=== PATIENT | female | born 1950 | race African-American/Black ===

== ENCOUNTER → 2017-02-08 | Outpatient (CLI) | payer MEDICARE ==
[2014-09-10 17:00] VITALS: BP 131/58
--- NOTE | 2017-02-08 15:00 | CARD ---
APPROVED REPORT EXAM: Two-dimensional and M-mode echocardiogram with Doppler and color Doppler. Other Information Quality : GoodHR: 76bpm Rhythm : NSR INDICATION Dyspnea RISK FACTORS Obesity 2D DIMENSIONS RVDd3.5 (2.9-3.5cm)Left Atrium(2D)4.2 (1.6-4.0cm) IVSd1.1 (0.7-1.1cm)Aortic Root(2D)3.2 (2.0-3.7cm) LVDd5.1 (3.9-5.9cm)LVOT Diameter2.5 (1.8-2.4cm) PWd1.1 (0.7-1.1cm)LVDs3.1 (2.5-4.0cm) FS (%) 40.2 %SV88.6 ml Aortic Valve AoV Peak Balta.200.0cm/sAoV VTI36.6cm AO Peak GR.16.0mmHgLVOT Peak Balta.150.5cm/s AO Mean GR.9mmHgAVA (VMAX)3.57cm2 Mitral Valve MV E Qlgzvawz19.9cm/sMV E Peak Gr.4mmHg MV DECEL [id number] A Vvycybft458.6cm/s MV E Mean Gr.1mmHgE/A Ratio0.7 MV A Emnfuftq05sv Pulmonary Valve PV Peak Pgitswzp157.0cm/s Tricuspid Valve TR P. Frpgwzru421vd/sTR Peak Gr.41mmHg Pulmonary Vein S1 Knpnvzpm57.4cm/sD2 Ehxentvh47.5cm/s PVa qxcqfzii50qzlv LEFT VENTRICLE The left ventricle is normal size. There is mild concentric left ventricular hypertrophy. The left ve ntricular systolic function is normal and the ejection fraction is within normal range. The Ejection Fraction is 65-70%. There is normal LV segmental wall motion. Transmitral Doppler flow pattern is Gra de I-abnormal relaxation pattern. RIGHT VENTRICLE The right ventricle is normal size. There is normal right ventricular wall thickness. The right ventr icular systolic function is normal. ATRIA The left atrium is mildly dilated. The right atrium size is normal. The interatrial septum is intact with no evidence for an atrial septal defect or patent foramen ovale as noted on 2-D or Doppler imagi ng. AORTIC VALVE The aortic valve is mildly sclerotic. The aortic valve is trileaflet. Doppler and Color Flow revealed no significant aortic regurgitation. There is no significant aortic valvular stenosis. MITRAL VALVE The mitral valve leaflets are thickened. There is no evidence of mitral valve prolapse. There is no m itral valve stenosis. Doppler and Color Flow revealed trace mitral regurgitation. TRICUSPID VALVE Doppler and Color Flow revealed trace to mild tricuspid regurgitation. The pulmonary artery systolic pressure is estimated at 44 mmHg. There is mild pulmonary hypertension. PULMONIC VALVE The pulmonary valve is not well visualized but appears to open adequately. Doppler and Color Flow rev ealed mild pulmonic valvular regurgitation. There is no pulmonic valvular stenosis by spectral Dopple r. GREAT VESSELS The aortic root is normal in size. The ascending aorta is normal in size. The pulmonary artery is nor mal. The IVC is normal in size and collapses >50% with inspiration. PERICARDIAL EFFUSION There is no evidence of significant pericardial effusion. Critical Notification Critical Value: No <Conclusion> The left ventricle is normal size. The left ventricular systolic function is normal and the ejection fraction is within normal range. The Ejection Fraction is 65-70%. There is mild concentric left ventricular hypertrophy. There is no significant aortic valvular stenosis. Doppler and Color Flow revealed no significant aortic regurgitation. Doppler and Color Flow revealed trace mitral regurgitation. Doppler and Color Flow revealed trace to mild tricuspid regurgitation. The pulmonary artery systolic pressure is estimated at 44 mmHg. There is mild pulmonary hypertension.
--- NOTE | 2017-02-09 18:19 | RAD ---
APPROVED REPORT Patient Location : OUT-PATIENT Indications VENOUS INSUFFICIENCY Findings Walker scale images of the bilateral saphenofemoral junctions and limited images of the great saphenous vein does not reveal any evidence of thrombus. The right great saphenous vein measures approximate 6 mm and the left great saphenous vein measures a pproximately 7 mm. Both these veins do not show any evidence of reflux. The bilateral lesser saphenou s veins measure approximately 4 mm and does not show any evidence of reflux. Critical Notification Critical Value: No <Conclusion> Negative for reflux in the bilateral greater and lesser saphenous veins.
== END | disposition home or self-care (01) ==
LOC: ECHO 10:20
PROVIDERS: ATTEND Internal Medicine Cardiovascular Disease
DX: I87.2 Venous insufficiency (chronic) (peripheral) (principal); I51.7 Cardiomegaly; I27.2 Other secondary pulmonary hypertension; R06.00 Dyspnea, unspecified
CPT/HCPCS: 93306; 93970

== ENCOUNTER → 2017-04-11 | Outpatient (CLI) | payer MEDICARE ==
[2014-09-10 17:00] VITALS: BP 131/58
[~2017-04-11] MED LIST: ZOLPIDEM 5 MG TABLET. PO ONE
--- NOTE | 2017-04-12 15:40 | SLEEP ---
DATE OF STUDY: 04/11/2017 ATTENDING PHYSICIAN: Dr. Manuel Florian. REFERRING PHYSICIAN: Dr. Angeles. The patient is a 66-year-old who weighs 284 pounds with a BMI of 47. The patient's [place] score was 6. The patient underwent sleep study at [facility]. This was a diagnostic study. The patient normally wears 3 liters of oxygen continuously and this study was performed on room air. During the night study, the patient spent 431 minutes in bed and slept for 215 minutes with a low sleep efficiency of 50%. Sleep latency was prolonged was prolonged at 214 minutes. REM latency was 121 minutes. Overall, sleep architecture showed normal stage I sleep, reduced stage II sleep, increased slow wave and reduced REM sleep. During the night study, the patient had 9 obstructive apneas, no mixed or central apneas and 10 hypopneas. The patient's apnea-hypopnea index was 5 per hour, supine index 5 per hour with a REM index of 55 per hour. Nocturnal oximetry study revealed a mean oxygen saturation of 86%, the lowest of 61%. 21% of time oxygen saturation remained between 80% and 89% and 76% of time between 70 and 79%, and 2.8% of the time between 60 and 69%. There was a sustained pattern of nocturnal hypoxia, which is typical of obesity hypoventilation. PLMS were not seen. The EKG monitoring revealed normal sinus rhythm, average heart rate was 74 beats per minute, no sustained arrhythmias were observed. Due to low AHI, the patient did not meet the split night criteria for CPAP initiation. IMPRESSION: 1. Mild sleep apnea-hypopnea syndrome at an AHI of 5 per hour with worsening AHI of 55 per hour during REM sleep. 2. Sustained nocturnal hypoxia, which is typically seen in patients with obesity hypoventilation syndrome. The patient uses oxygen 3 liters on a continuous basis and it should be used as prescribed. The study was done on room air. 3. No clinically significant PLMS. 4. Reduced sleep efficiency of 50%, resulting from sleep onset and sleep maintenance insomnia. RECOMMENDATIONS: 1. The patient did not meet the split night criteria for CPAP initiation. 2. The patient has mild sleep apnea and I would recommend weight loss as the initial form of treatment. 3. If the weight loss does not improve patient's symptoms, then other treatment options would include oral appliance worsens trial of CPAP titration. 4. Continue with home oxygen, 3 liters continuously at nighttime. 5. The patient would need further evaluation of insomnia and treatment according to etiology. ALO WALLACE MD DR: ASHLEY/stalin JOB#: [id number] / [id number] MANUEL Art MD, SABATO MD
== END | disposition home or self-care (01) ==
LOC: SLPLAB 18:05
PROVIDERS: ATTEND Internal Medicine Pulmonary Disease
DX: G47.33 Obstructive sleep apnea (adult) (pediatric) (principal); R06.83 Snoring
CPT/HCPCS: 95810

== ENCOUNTER → 2017-07-16 | Outpatient (CLI) | payer MEDICARE | END | disposition home or self-care (01) | LOC: MAMMO 12:30 | DX: Z12.31 Encounter for screening mammogram for malignant neoplasm of breast (principal) | CPT/HCPCS: 77067 ==

== ENCOUNTER → 2019-11-21 | Outpatient (CLI) | payer MEDICARE ==
[2014-09-10 17:00] VITALS: BP 131/58
[~2019-11-21] MED LIST changes: +BUPIVACAINE MPF 0.5% 10 ML VIAL. IJ ONE; +IOHEXOL 300 MG/ML 50 ML VIAL. IJ ONE; -ZOLPIDEM 5 MG TABLET. PO ONE; +methylPREDNISolone ACETATE 80 MG/ML VIAL. INT ART ONE
--- NOTE | 2019-11-21 10:22 | RAD ---
EXAM: FLUOROSCOPICALLY GUIDED LEFT HIP INJECTION. HISTORY: Left hip pain. Fluoroscopically guided injection is requested. FINDINGS: The procedure along with its risks and benefits were explained to the patient. She agreed to proceed. A timeout procedure was performed. The left hip joint was visualized fluoroscopically. The overlying skin was sterilely prepped and infiltrated with 1% lidocaine for local anesthesia. Under fluoroscopic guidance, 22-gauge spinal needle was advanced into the left hip joint. Intra-articular positioning was confirmed with a small injection of iodinated contrast. 80 mg Depo-Medrol mixed with 4 mL 1% lidocaine were instilled under fluoroscopic control. Instrumentation was withdrawn and a sterile dressing placed. There were no immediate complications. 2 fluoroscopic images were obtained. Fluoroscopy time 0.4 minutes. The patient reported her pain was significantly improved after the injection. IMPRESSION: 1. Successful fluoroscopically guided left hip injection. Electronically signed by: Corrina Wadsworth MD (11/21/2019 10:19 AM) [id number]
== END | disposition home or self-care (01) ==
LOC: RAD 09:04
PROVIDERS: ATTEND Orthopaedic Surgery Sports Medicine
DX: M25.552 Pain in left hip (principal)
CPT/HCPCS: 20610; 77002; J1040; Q9967

== ENCOUNTER 2021-05-19 10:55 | Inpatient (IN) | payer MEDICARE ==
[~2021-05-19] VITALS: Ht 165.1 cm; Wt 125.2 kg
--- NOTE | 2021-05-19 11:34 | PHYS DOC ---
Past Medical History Past Medical History: COPD, Hypertension, Other Additional Past Medical Histor: emphysema, Past Surgical History: No Surgical History Smoking Status: Former Smoker Alcohol Use: None Drug Use: None General Adult EDM: Chief Complaint: MECHANICAL FALL HPI: HPI: Patient is a 71 year old female who presents after a fall this morning. Patient states she stood up to go to the bathroom when her leg went out from under her. Patient is reporting bilateral knee pain, left hip pain and left upper leg pain. Fall was witnessed. She denies dizziness at the time of fall. Patient denies hitting her head or loss of consciousness. Denies blood thinners. Denies all other injuries or complaints. Patient did not take any medication prior to arrival for discomfort. Review of Systems: Review of Systems: Constitutional: Denies fever or chills. [] Eyes: Denies change in visual acuity. [] HENT: Denies nasal congestion or sore throat. [] Respiratory: Denies cough or shortness of breath. [] Cardiovascular: Denies chest pain or edema. [] GI: Denies abdominal pain, nausea, vomiting, bloody stools or diarrhea. [] : Denies dysuria. [] Musculoskeletal: Denies back pain or joint pain. Left upper leg and hip pain Integument: Abrasion to bilateral knees Neurologic: Denies headache, focal weakness or sensory changes. [] Endocrine: Denies polyuria or polydipsia. [] Lymphatic: Denies swollen glands. [] Psychiatric: Denies depression or anxiety. [] Heart Score: C/O Chest Pain: No Risk Factors: Risk Factors: DM, Current or recent (<one month) smoker, HTN, HLP, family history of CAD, obesity. Risk Scores: Score 0 - 3: 2.5% MACE over next 6 weeks - Discharge Home Score 4 - 6: 20.3% MACE over next 6 weeks - Admit for Clinical Observation Score 7 - 10: 72.7% MACE over next 6 weeks - Early Invasive Strategies Allergies: Allergies: Allergies Coded Allergies Type Severity Reaction Last Updated Verified No Known Drug Allergies 05/19/21 No Physical Exam: PE: Constitutional: Well developed, well nourished, no acute distress, non-toxic appearance. [] HENT: Normocephalic, atraumatic, bilateral external ears normal, oropharynx moist, no oral exudates, nose normal. [] Eyes: PERRLA, EOMI, conjunctiva normal, no discharge. [] Neck: Normal range of motion, no tenderness, supple, no stridor. [] Cardiovascular:Heart rate regular rhythm, no murmur [] Lungs & Thorax: Bilateral breath sounds clear to auscultation [] Abdomen: Bowel sounds normal, soft, no tenderness, no masses, no pulsatile masses. [] Skin: Warm, dry, no erythema, no rash. [] Back: No tenderness, no CVA tenderness. [] Extremities: No tenderness, no cyanosis, no clubbing, ROM intact, no edema. [] Neurologic: Alert and oriented X 3, normal motor function, normal sensory function, no focal deficits noted. [] Psychologic: Affect normal, judgement normal, mood normal. [] Current Patient Data: Vital Signs: Vital Signs Date Time Temp Pulse Resp B/P (MAP) Pulse Ox O2 Delivery O2 Flow Rate FiO2 05/19/21 10:55 98.3 81 20 121/59 (79) 93 Nasal Cannula 4.0 98.3 EKG: EKG: [] Radiology/Procedures: Radiology/Procedures: []EXAMINATION: Pelvis, left hip, bilateral knees, and left tibia fibula radiograph. VIEWS: 2 images single AP view of the pelvis, 2 views of the left hip, 2 views of bilateral knees, and 2 views of the left tibia fibula COMPARISON: Pelvic radiograph from 2019 INDICATION:71 years, Female, . FINDINGS: Pelvis/left hip: Demonstrate severe joint space narrowing of the left hip with subchondral sclerosis and cyst formation with small to mild osteophytes. Mild degenerative osteoarthritis of the right hip. There is no acute fracture or dislocation or diastases Right knee: No acute fracture or malalignment. Marginal osteophytes in the medial and patellofemoral compartments. No sizable joint effusion. Left knee: No acute fracture or malalignment. Marginal osteophytes in the medial and patellofemoral compartments. No sizable joint effusion. Left tibia-fibula: No acute fracture or malalignment. Bone mineralization is normal. There appears to be mild joint space narrowing at the anterior portion of the tibial talar joint with subchondral sclerosis and marginal osteophytes. Os trigonum is present. Soft tissues are grossly unremarkable. IMPRESSION: 1. No acute fracture or dislocation of the pelvis and left hip. Severe degenerative osteoarthritis of the left hip is redemonstrated. 2. No acute fracture or dislocation of bilateral knees. 3. No acute fracture or dislocation of the left tibia-fibula. Electronically signed by: Johnson Ramsey DO (05/19/2021 12:43 PM) [id number] Course & Med Decision Making: Course & Med Decision Making Pertinent Labs and Imaging studies reviewed. (See chart for details) [] 71-year-old female presents after a fall at home. Work-up in ER consisted of left hip and pelvis, bilateral knee, left tib-fib x-ray to rule out fracture. Pain treated in the emergency room. Hip and pelvis, tib-fib, bilateral knee x-rays all unremarkable. Upon reassessment, patient states that she is still in pain and just feels like she is too weak to go home. Patient currently lives alone at home. Discussed patient case with Dr. hSaver who agreed to keep patient. Patient will be admitted for weakness, falls. Troponin, 676 BNP 428. Alessandra Disclaimer: Alessandra Disclaimer: This electronic medical record was generated, in whole or in part, using a voice recognition dictation system. Departure Departure Referrals: PETER VIDES MD (PCP) MARS PETERSEN APRN May 19, 2021 11:34
--- NOTE | 2021-05-19 12:46 | RAD ---
EXAMINATION: Pelvis, left hip, bilateral knees, and left tibia fibula radiograph. VIEWS: 2 images single AP view of the pelvis, 2 views of the left hip, 2 views of bilateral knees, an d 2 views of the left tibia fibula COMPARISON: Pelvic radiograph from 2019 INDICATION:71 years, Female, . FINDINGS: Pelvis/left hip: Demonstrate severe joint space narrowing of the left hip with subchondral sclerosis and cyst formation with small to mild osteophytes. Mild degenerative osteoarthritis of the right hip. There is no acute fracture or dislocation or diastases Right knee: No acute fracture or malalignment. Marginal osteophytes in the medial and patellofemoral compartments. No sizable joint effusion. Left knee: No acute fracture or malalignment. Marginal osteophytes in the medial and patellofemoral c ompartments. No sizable joint effusion. Left tibia-fibula: No acute fracture or malalignment. Bone mineralization is normal. There appears to be mild joint space narrowing at the anterior portion of the tibial talar joint with subchondral scl erosis and marginal osteophytes. Os trigonum is present. Soft tissues are grossly unremarkable. IMPRESSION: 1. No acute fracture or dislocation of the pelvis and left hip. Severe degenerative osteoarthritis of the left hip is redemonstrated. 2. No acute fracture or dislocation of bilateral knees. 3. No acute fracture or dislocation of the left tibia-fibula. Electronically signed by: Johnson Ramsey DO (05/19/2021 12:43 PM) [id number]
[2021-05-19] MEDS ORDERED: HYDROcodone/APAP 5/325MG 1 TAB TABLET PO ONE (13:00)
[2021-05-19] MEDS ORDERED: NAPROXEN 500 MG TABLET PO ONE (13:30)
[2021-05-19 15:06] LABS: BILIRUBIN,URINE SMALL (NEG); CLARITY,URINE CLOUDY; COLOR,URINE AMBER; NITRITE,URINE NEGATIVE (NEG); PROTEIN,URINE 100 mg/dL (NEG-TRACE)
[2021-05-19 15:18] LABS: AMORPHOUS SEDIMENT,UR PRESENT /HPF; GRANULAR CASTS,URINE FEW /HPF; HYALINE CASTS, URINE FEW /HPF
[2021-05-19 15:19] LABS: BACTERIA,URINE FEW /HPF (0-FEW); RBC,URINE 0 /HPF (0-2)
--- NOTE | 2021-05-19 15:30 | RAD ---
XR CHEST 1V History: Reason: weakness / Spl. Instructions: / History: Comparison: September 10, 2014 Findings: Interstitial thickening with ill-defined opacities most prominent within the lung bases. No pleural e ffusion. No pneumothorax. Normal heart size. Impression: 1. Mild interstitial thickening with ill-defined opacities, may represent pulmonary edema or infecti on. Electronically signed by: Norberto Casas DO (05/19/2021 3:28 PM) [facility]
[2021-05-19 15:47] LABS: BASO # 0.1 x10^3/uL (0.0-0.2); BASO % 1 % (0-3); EOS % 0 % (0-3); HEMATOCRIT 35.3 % (36.0-47.0); HEMOGLOBIN 11.3 g/dL (12.0-15.5); LYMPH # 0.9 x10^3/uL (1.0-4.8); LYMPH % 10 % (24-48); MEAN CORPUSCULAR HEMOGLOBIN 30 pg (25-35); MEAN CORPUSCULAR HGB CONC 32 g/dL (31-37); MEAN CORPUSCULAR VOLUME 92 fL (79-100); MONO # 0.7 x10^3/uL (0.0-1.1); MONO % 7 % (0-9); NEUT # 7.7 x10^3/uL (1.8-7.7); NEUT % 82 % (31-73); PLATELET COUNT 181 x10^3/uL (140-400); RED BLOOD COUNT 3.83 x10^6/uL (3.50-5.40); RED CELL DISTRIBUTION WIDTH 14.7 % (11.5-14.5); WHITE BLOOD COUNT 9.5 x10^3/uL (4.0-11.0)
[2021-05-19 16:09] LABS: BLOOD UREA NITROGEN 31 mg/dL (7-20); BUN/CREATININE RATIO 21 (6-20); CALCIUM 8.8 mg/dL (8.5-10.1); CARBON DIOXIDE 39 mmol/L (21-32); CHLORIDE 105 mmol/L (98-107); CREATININE 1.5 mg/dL (0.6-1.0); GFR 41.2; GLUCOSE 96 mg/dL (70-99); SODIUM 143 mmol/L (136-145)
[2021-05-19 16:15] LABS: ALBUMIN/GLOBULIN RATIO 0.7 (1.0-1.7); ALK PHOS 47 U/L (46-116); ALT (SGPT) 33 U/L (14-59); AST (SGOT) 68 U/L (15-37); TOTAL BILIRUBIN 0.4 mg/dL (0.2-1.0); TOTAL PROTEIN 7.3 g/dL (6.4-8.2)
--- NOTE | 2021-05-19 16:18 | EKG ---
[facility] [address] [place] [address] Test Date: 2021-05-19 Test Time: 15:44:33 Pat Name: LIBZETH MACDONALD Department: Room: [facility] Gender: F Head Of Data: : 1950 Requested By: MARS PETERSEN Order Number: [id number] Reading MD: Ariel Padilla Measurements Intervals [place] Rate: 83 P: [place]: QRS: 4 QRSD: 84 T: 32 QT: 448 QTc: 527 Interpretive Statements SINUS RHYTHM PROLONGED QT Electronically Signed On 05-20-2021 14:31:54 [employer] INTERN by Ariel Padilla
[2021-05-19] MEDS ORDERED: ONDANSETRON PF 4 MG/2 ML VIAL. IVP PRN (16:30)
--- NOTE | 2021-05-19 16:31 | PDOC1 ---
History and Physical Date of Admission Date of Admission DATE: 05/19/21 TIME: 16:28 Identification/Chief Complaint Chief Complaint Unable to walk Source Source: Patient History of Present Illness History of Present Illness Ms Kwan is a 71yo female with PMHx COPD, HTN, morbid obesity and osteoarthritis who comes to ED accompanied by her son for progressive weakness and left hip pain after a fall. She fell trying to get out of bed to go to the bathroom, slid off the bed and didn't make it to the bathroom, could not stand due to left leg weakness. She called EMS to get up. She has had left leg weakness for the past 2 days prior to arrival and has been mostly in bed. 2 days prior to presentation fell on the way to the bathroom and had both knees splay outward, has some abrasions on bilateral knees. Since then she has had pain and weakness in her left hip, can't bear weight on it. She notes previously she was seen outpatient for severe left hip OA and had excellent improvement for over a year with corticosteroid injection. Pelvis with no acute fracture or dislocation of the pelvis and left hip. Severe degenerative osteoarthritis of the left hip is redemonstrated. Knee radiographs with no acute fracture or dislocation of bilateral knees. left tib-fib radiograph with no acute fracture or dislocation of the left tibia- fibula. Labs with Troponin, 676, BNP 428. Cr 1.5, AST 68, Cr 3 EKG sinus rhythm with significant baseline artifact and prolonged QT Past Medical History Cardiovascular: HTN Pulmonary: Asthma, Bronchitis, COPD Past Surgical History Past Surgical History: No pertinent history Family History Family History: High Cholestrol, Hypertension Social History Smoke: No ALCOHOL: none Drugs: None Current Medications Current Medications Current Medications Acetaminophen/ Hydrocodone Bitart (Lortab 5/325) 1 tab 1X ONCE PO ; Start 05/19/21 at 13:00; Stop 05/19/21 at 13:01; Status DC Naproxen (Naprosyn) 500 mg 1X ONCE PO Last administered on 05/19/21at 13:30; Start 05/19/21 at 13:30; Stop 05/19/21 at 13:31; Status DC Allergies Allergies: Coded Allergies: No Known Drug Allergies (Unverified , 05/19/21) ROS General: YES: Fatigue, Malaise; No: Chills, Night Sweats, Appetite, Other PSYCHOLOGICAL ROS: No: Anxiety, Behavioral Disorder, Concentration difficultie, Decreased libido, Depression, Disorientation, Hallucinations, Hostility, Irritablity, Memory difficulties, Mood Swings, Obsessive thoughts, Physical abuse, Sexual abuse, Sleep disturbances, Suicidal ideation, Other Eyes: No Blurry vision, No Decreased vision, No Double vision, No Dry eyes, No Excessive tearing, No Eye Pain, No Itchy Eyes, No Loss of vision, No Photophobia, No Scotomata, No Uses contacts, No Uses glasses, No Other HEENT: No: Heacaches, Visual Changes, Hearing change, Nasal congestion, Nasal discharge, Oral lesions, Sinus pain, Sore Throat, Epistaxis, Sneezing, Snoring, Tinnitus, Vertigo, Vocal changes, Other ALLERGY AND IMMUNOLOGY: No: Hives, Insect Bite Sensitivity, Itchy/Watery Eyes, Nasal Congestion, Post Nasal Drip, Seasonal Allergies, Other Hematological and Lymphatic: No: Bleeding Problems, Blood Clots, Blood Transfusions, Brusing, Night Sweats, Pallor, Swollen Lymph Nodes, Other ENDOCRINE: No: Breast Changes, Galactorrhea, Hair Pattern Changes, Hot Flashes, Malaise/lethargy, Mood Swings, Palpitations, Polydipsia/polyuria, Skin Changes, Temperature Intolerance, Unexpected Weight Changes, Other Breast: No New/Changing Breast Lumps, No Nipple changes, No Nipple discharge, No Other Respiratory: No: Cough, Hemoptysis, Orthopnea, Pleuritic Pain, Shortness of breath, SOB with excertion, Sputum Changes, Stridor, Tachypnea, Wheezing, Other Cardiovascular: No Chest Pain, No Palpitations, No Orthopnea, No Paroxysmal Noc. Dyspnea, No Edema, No Lt Headedness, No Other Gastrointestinal: No Nausea, No Vomiting, No Abdominal Pain, No Diarrhea, No Co nstipation, No Melena, No Hematochezia, No Other Genitourinary: No Dysuria, No Frequency, No Incontinence, No Hematuria, No Retention, No Discharge, No Urgency, No Pain, No Flank Pain, No Other, No , No , No , No , No , No , No Musculoskeletal: Yes Gait Disturbance, Yes Joint Pain, Yes Muscle Pain, Yes Muscular Weakness; No Joint Stiffness, No Joint Swelling, No Pain In:, No Swelling In:, No Other Neurological: No Behavorial Changes, No Bowel/Bladder ControlChng, No Confusion, No Dizziness, No Gait Disturbance, No Headaches, No Impaired Coord/balance, No Memory Loss, No Numbness/Tingling, No Seizures, No Speech Problems, No Tremors, No Visual Changes, No Weakness, No Other Skin: Yes Skin Lesion Changes; No Dry Skin, No Eczema, No Hair Changes, No Lumps, No Mole Changes, No Mottling, No Nail Changes, No Pruritus, No Rash, No Other, No Acne Physical Exam General: Alert, Oriented X3, Cooperative, mild distress HEENT: Atraumatic, PERRLA, EOMI, Mucous membr. moist/pink Lungs: Clear to auscultation, Normal air movement Heart: S1S2, RRR, no thrills, no rubs, no gallops, no murmurs Abdomen: Normal bowel sounds, Soft, No tenderness, No hepatosplenomegaly, No masses Rectal Exam: not examined Extremities: No clubbing, No cyanosis, No edema, Normal pulses, Other (left hip pain on external and internal rotation, pain on straight leg raise on left) Skin: Other (bilateral knee abrasions) Neuro: Normal speech, Strength at 5/5 X4 ext, Normal tone, Sensation intact, Cranial nerves 3-12 NL, Reflexes 2+ Psych/Mental Status: Mental status NL, Mood NL Vitals Vitals Vital Signs Date Time Temp Pulse Resp B/P (MAP) Pulse Ox O2 Delivery O2 Flow Rate FiO2 05/19/21 13:16 80 18 117/67 (84) 99 Nasal Cannula 4.0 05/19/21 10:55 98.3 98.3 Labs Labs Laboratory Tests Test 05/19/21 14:56 05/19/21 14:57 White Blood Count 9.5 x10^3/uL (4.0-11.0) Red Blood Count 3.83 x10^6/uL (3.50-5.40) Hemoglobin 11.3 g/dL (12.0-15.5) Hematocrit 35.3 % (36.0-47.0) Mean Corpuscular Volume 92 fL (79-100) Mean Corpuscular Hemoglobin 30 pg (25-35) Mean Corpuscular Hemoglobin Concent 32 g/dL (31-37) Red Cell Distribution Width 14.7 % (11.5-14.5) Platelet Count 181 x10^3/uL (140-400) Neutrophils (%) (Auto) 82 % (31-73) Lymphocytes (%) (Auto) 10 % (24-48) Monocytes (%) (Auto) 7 % (0-9) Eosinophils (%) (Auto) 0 % (0-3) Basophils (%) (Auto) 1 % (0-3) Neutrophils # (Auto) 7.7 x10^3/uL (1.8-7.7) Lymphocytes # (Auto) 0.9 x10^3/uL (1.0-4.8) Monocytes # (Auto) 0.7 x10^3/uL (0.0-1.1) Eosinophils # (Auto) 0.0 x10^3/uL (0.0-0.7) Basophils # (Auto) 0.1 x10^3/uL (0.0-0.2) Sodium Level 143 mmol/L (136-145) Potassium Level 4.0 mmol/L (3.5-5.1) Chloride Level 105 mmol/L (98-107) Carbon Dioxide Level 39 mmol/L (21-32) Anion Gap (6-14) Blood Urea Nitrogen 31 mg/dL (7-20) Creatinine 1.5 mg/dL (0.6-1.0) Estimated GFR (Cockcroft-Gault) 41.2 BUN/Creatinine Ratio 21 (6-20) Glucose Level 96 mg/dL (70-99) Calcium Level 8.8 mg/dL (8.5-10.1) Magnesium Level 2.8 mg/dL (1.8-2.4) Total Bilirubin 0.4 mg/dL (0.2-1.0) Aspartate Amino Transf (AST/SGOT) 68 U/L (15-37) Alanine Aminotransferase (ALT/SGPT) 33 U/L (14-59) Alkaline Phosphatase 47 U/L (46-116) Troponin I High Sensitivity 676 ng/L (4-50) LP-Uzs-N-Type Natriuretic Peptide 428 pg/mL (0-124) Total Protein 7.3 g/dL (6.4-8.2) Albumin 3.0 g/dL (3.4-5.0) Albumin/Globulin Ratio 0.7 (1.0-1.7) Urine Collection Type Unknown Urine Color Judy Urine Clarity Cloudy Urine pH 5.0 (<5.0-8.0) Urine Specific [place] 1.020 (1.000-1.030) Urine Protein 100 mg/dL (NEG-TRACE) Urine Glucose (UA) Negative mg/dL (NEG) Urine Ketones (Stick) Trace mg/dL (NEG) Urine Blood Large (NEG) Urine Nitrite Negative (NEG) Urine Bilirubin Small (NEG) Urine Urobilinogen Dipstick 1.0 mg/dL (0.2 mg/dL) Urine Leukocyte Esterase Negative (NEG) Urine RBC 0 /HPF (0-2) Urine WBC 5-10 /HPF (0-4) Urine Squamous Epithelial Cells Mod /LPF Urine Amorphous Sediment Present /HPF Urine Bacteria Few /HPF (0-FEW) Urine Hyaline Casts Few /HPF Urine Granular Casts Few /HPF Urine Mucus Mod /LPF Laboratory Tests Test 05/19/21 14:56 05/19/21 14:57 White Blood Count 9.5 x10^3/uL (4.0-11.0) Red Blood Count 3.83 x10^6/uL (3.50-5.40) Hemoglobin 11.3 g/dL (12.0-15.5) Hematocrit 35.3 % (36.0-47.0) Mean Corpuscular Volume 92 fL (79-100) Mean Corpuscular Hemoglobin 30 pg (25-35) Mean Corpuscular Hemoglobin Concent 32 g/dL (31-37) Red Cell Distribution Width 14.7 % (11.5-14.5) Platelet Count 181 x10^3/uL (140-400) Neutrophils (%) (Auto) 82 % (31-73) Lymphocytes (%) (Auto) 10 % (24-48) Monocytes (%) (Auto) 7 % (0-9) Eosinophils (%) (Auto) 0 % (0-3) Basophils (%) (Auto) 1 % (0-3) Neutrophils # (Auto) 7.7 x10^3/uL (1.8-7.7) Lymphocytes # (Auto) 0.9 x10^3/uL (1.0-4.8) Monocytes # (Auto) 0.7 x10^3/uL (0.0-1.1) Eosinophils # (Auto) 0.0 x10^3/uL (0.0-0.7) Basophils # (Auto) 0.1 x10^3/uL (0.0-0.2) Sodium Level 143 mmol/L (136-145) Potassium Level 4.0 mmol/L (3.5-5.1) Chloride Level 105 mmol/L (98-107) Carbon Dioxide Level 39 mmol/L (21-32) Anion Gap (6-14) Blood Urea Nitrogen 31 mg/dL (7-20) Creatinine 1.5 mg/dL (0.6-1.0) Estimated GFR (Cockcroft-Gault) 41.2 BUN/Creatinine Ratio 21 (6-20) Glucose Level 96 mg/dL (70-99) Calcium Level 8.8 mg/dL (8.5-10.1) Magnesium Level 2.8 mg/dL (1.8-2.4) Total Bilirubin 0.4 mg/dL (0.2-1.0) Aspartate Amino Transf (AST/SGOT) 68 U/L (15-37) Alanine Aminotransferase (ALT/SGPT) 33 U/L (14-59) Alkaline Phosphatase 47 U/L (46-116) Troponin I High Sensitivity 676 ng/L (4-50) WP-Jee-O-Type Natriuretic Peptide 428 pg/mL (0-124) Total Protein 7.3 g/dL (6.4-8.2) Albumin 3.0 g/dL (3.4-5.0) Albumin/Globulin Ratio 0.7 (1.0-1.7) Urine Collection Type Unknown Urine Color Judy Urine Clarity Cloudy Urine pH 5.0 (<5.0-8.0) Urine Specific [place] 1.020 (1.000-1.030) Urine Protein 100 mg/dL (NEG-TRACE) Urine Glucose (UA) Negative mg/dL (NEG) Urine Ketones (Stick) Trace mg/dL (NEG) Urine Blood Large (NEG) Urine Nitrite Negative (NEG) Urine Bilirubin Small (NEG) Urine Urobilinogen Dipstick 1.0 mg/dL (0.2 mg/dL) Urine Leukocyte Esterase Negative (NEG) Urine RBC 0 /HPF (0-2) Urine WBC 5-10 /HPF (0-4) Urine Squamous Epithelial Cells Mod /LPF Urine Amorphous Sediment Present /HPF Urine Bacteria Few /HPF (0-FEW) Urine Hyaline Casts Few /HPF Urine Granular Casts Few /HPF Urine Mucus Mod /LPF Images Images VIEWS: 2 images single AP view of the pelvis, 2 views of the left hip, 2 views of bilateral knees, and 2 views of the left tibia fibula COMPARISON: Pelvic radiograph from 2019 INDICATION:71 years, Female, . FINDINGS: Pelvis/left hip: Demonstrate severe joint space narrowing of the left hip with subchondral sclerosis and cyst formation with small to mild osteophytes. Mild degenerative osteoarthritis of the right hip. There is no acute fracture or dislocation or diastases Right knee: No acute fracture or malalignment. Marginal osteophytes in the medial and patellofemoral compartments. No sizable joint effusion. Left knee: No acute fracture or malalignment. Marginal osteophytes in the medial and patellofemoral compartments. No sizable joint effusion. Left tibia-fibula: No acute fracture or malalignment. Bone mineralization is normal. There appears to be mild joint space narrowing at the anterior portion of the tibial talar joint with subchondral sclerosis and marginal osteophytes. Os trigonum is present. Soft tissues are grossly unremarkable. IMPRESSION: 1. No acute fracture or dislocation of the pelvis and left hip. Severe degenerative osteoarthritis of the left hip is redemonstrated. 2. No acute fracture or dislocation of bilateral knees. 3. No acute fracture or dislocation of the left tibia-fibula. VTE Prophylaxis Ordered VTE Prophylaxis Devices: No VTE Pharmacological Prophylaxi: Yes Assessment/Plan Assessment/Plan A/P: Intractable left hip pain - severe OA noted. With weakness after fall may need to r/o occult fracture with MRI, will d/w ortho and PMR physicians Left leg weakness - no other neuro deficits, weakness is due to pain. Ortho and PMR consulted Unable to walk - due to left leg weakness, fall Anemia - will check iron JOSE - likely vasomotor nephropathy, will hold ARB/HCTZ, monitor renal function Transaminitis - will check CK as with JOSE may be rhabdo related Fall at home - with localized bruising. PT for gait training and assessment for safety Elevated troponin - possibly related to rhabdo. Will trend. Consult cardiology COPD - asthmatic bronchitis, will cont dulera prn HTN - hold ARB/HCTZ. May start amlodipine if BP increases Bilateral knee abrasions - local wound care FEN - Regular diet PPX - heparin FULL CODE Dispo - inpatient Justifications for Admission Other Justification LAURA ALMENDAREZ MD May 19, 2021 16:31
[2021-05-19] MEDS: IV NORMAL SALINE 1000ML BAG 1,000 ML IV SCH (17:15)
[2021-05-19 19:00] VITALS: BP 135/56
--- NOTE | 2021-05-19 19:00 | NUR ---
The patient, LIZBETH MACDONALD, 71 y/o, F admitted by LAURA ALMENDAREZ MD, was given written information regarding hospital policies, unit procedures and contact persons. Patient refusing removal of her JOSE LUIS hose to assess feet and refusing some of assessment. Non draining scabs to bilateral knees Patient continues to cover up when attempting to assess them. Patient difficult to obtain medications she takes or Pharmacy, no family to contact and Patient declining some cares. See admission assessment/documentation. Valuables were checked and Patient declined lock up of valuables.
[2021-05-19] MEDS: PSYLLIUM HUSK (SUGAR FREE) 1 PKT PACKET PO SCH (21:22)
[2021-05-19 23:57] VITALS: BP 114/60
[2021-05-20] MEDS ORDERED: traMADol 50 MG TABLET PO PRN (01:15)
[2021-05-20] MEDS ORDERED: ALBUTEROL SULFATE 2.5 MG/3 ML NEBU. NEB PRN (01:15)
[2021-05-20 03:28] VITALS: BP 127/88
[2021-05-20] MEDS: HEPARIN for SUB-Q USE 5,000 UNIT/ML VIAL. SQ SCH ×3 (05:51→22:52)
[2021-05-20] MEDS: IV NORMAL SALINE 1000ML BAG 1,000 ML IV SCH (05:52)
[2021-05-20 07:00] VITALS: BP 116/61
[2021-05-20] MEDS ORDERED: NAPR-514 PO (07:14)
[2021-05-20] MEDS ORDERED: MOME13HF INH (07:14)
[2021-05-20] MEDS ORDERED: IRBE1TAB5 PO (07:14)
[2021-05-20] MEDS: IPRATRPIUM/ALBUTEROL 0.5/2.5MG 3 ML NEBU. NEB SCH ×4 (07:24→21:08)
[2021-05-20] MEDS: BUDESONIDE 0.5 MG/2 ML NEBU. NEB SCH ×2 (07:24→21:09)
[2021-05-20 09:41] LABS: ALBUMIN 2.8 g/dL (3.4-5.0); ALBUMIN/GLOBULIN RATIO 0.7 (1.0-1.7); CALCIUM 8.6 mg/dL (8.5-10.1); CREATININE 1.5 mg/dL (0.6-1.0); GFR 41.2; POTASSIUM 4.2 mmol/L (3.5-5.1); TOTAL BILIRUBIN 0.3 mg/dL (0.2-1.0); TOTAL PROTEIN 6.6 g/dL (6.4-8.2)
--- NOTE | 2021-05-20 09:52 | NUR ---
SW following. Discussed with RN, pt from home alone, 4L, cardiac diet. PT/OT ordered. SW will continue to follow.
[2021-05-20] MEDS ORDERED: IOHEXOL 300 MG/ML 50 ML VIAL. IJ ONE (10:15)
[2021-05-20] MEDS ORDERED: BUPIVACAINE MPF 0.25% 10 ML VIAL. IJ ONE (10:15)
[2021-05-20] MEDS ORDERED: LIDOCAINE 1% Multi-Dose 20 ML VIAL. INJ ONE (10:15)
[2021-05-20] MEDS ORDERED: CONTRAST GIVEN. MC PRN (10:30)
[2021-05-20 11:00] VITALS: BP 100/61
[2021-05-20] MEDS ORDERED: methylPREDNISolone ACETATE 40 MG/ML VIAL. ONE (12:33)
[2021-05-20] MEDS ORDERED: BUPIVACAINE MPF 0.5% 10 ML VIAL. ONE (12:38)
--- NOTE | 2021-05-20 14:05 | PDOC ---
[facility] PROGRESS NOTE Date of Service DOS: DATE: 05/20/21 TIME: 13:28 Chief Complaint Chief Complaint A/P: Intractable left hip pain - severe OA noted. With weakness after fall may need to r/o occult fracture with MRI, will d/w ortho and PMR physicians Left leg weakness - no other neuro deficits, weakness is due to pain. Ortho and PMR consulted Unable to walk - due to left leg weakness, fall Anemia - will check iron JOSE - likely vasomotor nephropathy, will hold ARB/HCTZ, monitor renal function Transaminitis - as with JOSE may be rhabdo related Fall at home - with localized bruising. PT for gait training and assessment for safety Elevated troponin - possibly related to rhabdo. Will trend. Consult cardiology COPD - asthmatic bronchitis, will cont dulera prn HTN - hold ARB/HCTZ. May start amlodipine if BP increases Bilateral knee abrasions - local wound care FEN - Regular diet PPX - heparin FULL CODE Dispo - inpatient History of Present Illness History of Present Illness Ms Kwan is a 71yo female with PMHx COPD, HTN, morbid obesity and osteoarthritis who comes to ED accompanied by her son for progressive weakness and left hip pain after a fall. She fell trying to get out of bed to go to the bathroom, slid off the bed and didn't make it to the bathroom, could not stand due to left leg weakness. She called EMS to get up. She has had left leg weakness for the past 2 days prior to arrival and has been mostly in bed. 2 days prior to presentation fell on the way to the bathroom and had both knees splay outward, has some abrasions on bilateral knees. Since then she has had pain and weakness in her left hip, can't bear weight on it. She notes previously she was seen outpatient for severe left hip OA and had excellent improvement for over a year with corticosteroid injection. Pelvis with no acute fracture or dislocation of the pelvis and left hip. Severe degenerative osteoarthritis of the left hip is redemonstrated. Knee radiographs with no acute fracture or dislocation of bilateral knees. left tib-fib radiograph with no acute fracture or dislocation of the left tibia- fibula. Labs with Troponin, 676, BNP 428. Cr 1.5, AST 68, Cr 3 EKG sinus rhythm with significant baseline artifact and prolonged QT 05/20: Troponin decreased. CK elevated creatinine LFTs unchanged. Still significant pain and some weakness left hip. Able to ambulate with physical therapy needs significant assistance, unable to move further than from bed to chair without complete assistance. MRI pelvis ordered. D/w radiology and ortho Vitals/I&O Vitals/I&O: Vital Signs Date Time Temp Pulse Resp B/P (MAP) Pulse Ox O2 Delivery O2 Flow Rate FiO2 05/20/21 12:04 93 Nasal Cannula 4.0 05/20/21 11:00 99.7 95 20 100/61 (74) 99.7 I & O 05/19/21 05/19/21 05/20/21 15:00 23:00 07:00 Intake Total 1000 ml 300 ml Balance 1000 ml 300 ml Physical Exam General: Alert, Oriented X3, Cooperative, mild distress Abdomen: Normal bowel sounds, Soft, No tenderness, No hepatosplenomegaly, No masses Extremities: No clubbing, No cyanosis, No edema, Normal pulses, Other (left hip pain on external and internal rotation, pain on straight leg raise on left) Skin: Other (bilateral knee abrasions) Labs Labs: Laboratory Tests Test 05/19/21 14:56 05/19/21 14:57 05/20/21 07:25 White Blood Count 9.5 x10^3/uL (4.0-11.0) Red Blood Count 3.83 x10^6/uL (3.50-5.40) Hemoglobin 11.3 g/dL (12.0-15.5) Hematocrit 35.3 % (36.0-47.0) Mean Corpuscular Volume 92 fL (79-100) Mean Corpuscular Hemoglobin 30 pg (25-35) Mean Corpuscular Hemoglobin Concent 32 g/dL (31-37) Red Cell Distribution Width 14.7 % (11.5-14.5) Platelet Count 181 x10^3/uL (140-400) Neutrophils (%) (Auto) 82 % (31-73) Lymphocytes (%) (Auto) 10 % (24-48) Monocytes (%) (Auto) 7 % (0-9) Eosinophils (%) (Auto) 0 % (0-3) Basophils (%) (Auto) 1 % (0-3) Neutrophils # (Auto) 7.7 x10^3/uL (1.8-7.7) Lymphocytes # (Auto) 0.9 x10^3/uL (1.0-4.8) Monocytes # (Auto) 0.7 x10^3/uL (0.0-1.1) Eosinophils # (Auto) 0.0 x10^3/uL (0.0-0.7) Basophils # (Auto) 0.1 x10^3/uL (0.0-0.2) Sodium Level 143 mmol/L (136-145) 145 mmol/L (136-145) Potassium Level 4.0 mmol/L (3.5-5.1) 4.2 mmol/L (3.5-5.1) Chloride Level 105 mmol/L (98-107) 103 mmol/L (98-107) Carbon Dioxide Level 39 mmol/L (21-32) 35 mmol/L (21-32) Anion Gap (6-14) 7 (6-14) Blood Urea Nitrogen 31 mg/dL (7-20) 34 mg/dL (7-20) Creatinine 1.5 mg/dL (0.6-1.0) 1.5 mg/dL (0.6-1.0) Estimated GFR (Cockcroft-Gault) 41.2 41.2 BUN/Creatinine Ratio 21 (6-20) 23 (6-20) Glucose Level 96 mg/dL (70-99) 101 mg/dL (70-99) Calcium Level 8.8 mg/dL (8.5-10.1) 8.6 mg/dL (8.5-10.1) Magnesium Level 2.8 mg/dL (1.8-2.4) Total Bilirubin 0.4 mg/dL (0.2-1.0) 0.3 mg/dL (0.2-1.0) Aspartate Amino Transf (AST/SGOT) 68 U/L (15-37) 112 U/L (15-37) Alanine Aminotransferase (ALT/SGPT) 33 U/L (14-59) 38 U/L (14-59) Alkaline Phosphatase 47 U/L (46-116) 45 U/L (46-116) Troponin I High Sensitivity 676 ng/L (4-50) 611 ng/L (4-50) PW-Eyt-C-Type Natriuretic Peptide 428 pg/mL (0-124) Total Protein 7.3 g/dL (6.4-8.2) 6.6 g/dL (6.4-8.2) Albumin 3.0 g/dL (3.4-5.0) 2.8 g/dL (3.4-5.0) Albumin/Globulin Ratio 0.7 (1.0-1.7) 0.7 (1.0-1.7) Urine Collection Type Unknown Urine Color Judy Urine Clarity Cloudy Urine pH 5.0 (<5.0-8.0) Urine Specific [place] 1.020 (1.000-1.030) Urine Protein 100 mg/dL (NEG-TRACE) Urine Glucose (UA) Negative mg/dL (NEG) Urine Ketones (Stick) Trace mg/dL (NEG) Urine Blood Large (NEG) Urine Nitrite Negative (NEG) Urine Bilirubin Small (NEG) Urine Urobilinogen Dipstick 1.0 mg/dL (0.2 mg/dL) Urine Leukocyte Esterase Negative (NEG) Urine RBC 0 /HPF (0-2) Urine WBC 5-10 /HPF (0-4) Urine Squamous Epithelial Cells Mod /LPF Urine Amorphous Sediment Present /HPF Urine Bacteria Few /HPF (0-FEW) Urine Hyaline Casts Few /HPF Urine Granular Casts Few /HPF Urine Mucus Mod /LPF Iron Level 19 ug/dL (50-170) Total Iron Binding Capacity 182 ug/dL (250-450) Iron Saturation 10 % (15-34) Creatine Kinase 3146 U/L (26-192) Comment Review of Relevant I have reviewed the following items robb (where applicable) has been applied. Medications: Current Medications Medications (Trade) Dose Ordered Sig/Teresa Route PRN Reason Start Time Stop Time Status Last Admin Dose Admin Naproxen (Naprosyn) 500 mg 1X ONCE PO 05/19/21 13:30 05/19/21 13:31 DC 05/19/21 13:30 Sodium Chloride 1,000 ml @ 75 mls/hr [id number] IV 05/19/21 17:15 05/20/21 17:14 05/20/21 05:52 Albuterol/ Ipratropium (Duoneb) 3 ml RTQID NEB 05/20/21 08:00 05/20/21 12:03 Budesonide (Pulmicort) 0.5 mg RTBID NEB 05/20/21 08:00 1/7/22 07:24 Heparin Sodium (Porcine) (Heparin Sodium) 5,000 unit Q8HRS SQ 05/20/21 06:00 05/20/21 05:51 Justifications for Admission Other Justification LAURA ALMENDAREZ MD May 20, 2021 14:05
[2021-05-20 15:00] VITALS: BP 141/53
--- NOTE | 2021-05-20 16:25 | CONS ---
DATE OF CONSULTATION: 05/20/2021 ATTENDING PHYSICIAN: Dr. Nicholas. REASON FOR CONSULTATION: The patient was seen at the request of Dr. Nicholas for rehab evaluation. HISTORY OF PRESENT ILLNESS: This is a 71-year-old right-handed female with known chronic obstructive pulmonary disease, hypertension, obesity, and osteoarthritis of left hip, was admitted through the Emergency Room with left hip pain and weakness since she fell down on 05/18/2021 and since then, having difficulty to get up and walk. The patient had left hip joint injection with cortisone about a year ago with significant help. The patient usually walks using a cane and sometimes she uses a roller walker to get around. She lives in a high-rise, no stairs per her to manage. She had x-rays of her lower extremities, which revealed severe degenerative joint disease of left hip joint with some aseptic necrosis of femoral head and degenerative changes in her knees. The patient was found with a troponin of 676, BNP 428, creatinine 1.5, AST 68, and creatinine 3. EKG revealed sinus rhythm with significant baseline artifact and prolonged QT interval. The patient uses oxygen by nasal cannula. The patient is not known allergic to any medication. 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 PHYSICAL EXAMINATION: GENERAL: Today revealed an elderly female. She is alert and oriented to time, place, person and circumstance, follows commands appropriately. NEUROLOGIC: Moves all 4 extremities voluntarily. She is protecting her left hip to some extent. She had painful limited rotational movements of left hip joint. She had mild crepitus on range of motion of her knee joint. She had 5/5 grade muscle strength in her extremities and deep tendon reflexes are 2+ and symmetrical and she had equal perception of touch and pinprick sensation bilaterally. ASSESSMENT: Mobility and self-care limitation in a patient with painful degenerative joint disease of left hip with increased pain since a recent fall on 05/18/2021 with associated skin abrasion left knee, mild obesity, hypertension, chronic obstructive pulmonary disease and degenerative joint disease of both knees without any significant pain. RECOMMENDATIONS: If Orthopedics are not planning to do any left hip arthroplasty, to proceed with asking radiologist to proceed with injecting her left hip joint with Depo-Medrol and Marcaine and home when she can able to get around well with a cane or walker level with outpatient followup by Orthopedics. Dr. Nicholas, I appreciate asking me to participate in the care of this interesting patient. I will be glad to see her for followup with you on as needed basis. MARGIE/JAYCEE DR: SEAMUS/stalin TID: [id number]
--- NOTE | 2021-05-20 18:44 | RAD ---
Study: MRI of the left hip without contrast INDICATION: Left hip fracture. COMPARISON: Left hip radiographs 05/19/2021 TECHNIQUE: Multiplanar MR imaging of the left hip performed without the use of intravenous or intra-a rticular contrast. FINDINGS: Severely degraded small wqzcn-[id number] T2 weighted sequences. Diagnostic utility is maintained on the full [id number] STIR sequence. The degraded sequences were unable to be repeated as the patient co uld not tolerate further imaging. Severe arthrosis at the left hip with [id number] at the superior joint space and prominent subchond ral cystic change. No acute fracture at the left hip. No evidence for fracture throughout the rest of the partially assessed pelvis or right hip. Grossly intact gluteus medius, gluteus minimus, common hamstring origin and iliopsoas on the left. Th ere does appear to be some asymmetric edema involving the left adductors. No large hip joint effusion on either side. No fluid distention of the greater trochanteric bursa. A few partially imaged coloni c diverticuli presumed fibroid uterus with endometrium appears to be thickened. IMPRESSION: 1. Limited study with essentially nondiagnostic small [id number] T2 sequences which could not be repeated as the patient was unable to tolerate further imaging. Diagnostic utility is partially maint ained and it can be confidently discerned that there is no acute fracture at the left hip. 2. No evidence for a fracture throughout the rest of the pelvis or at the right hip. There appears t o be mild asymmetric edema along the left adductors which is nonspecific but could indicate mild stra in. No findings of full thickness tendon disruption around the left hip. 3. Severe left hip arthrosis. 4. Fibroid uterus. Possible endometrial thickening. Eventual pelvic ultrasound is recommended. Electronically signed by: WHITNEY FOLEY MD (05/20/2021 6:41 PM) [facility]
[2021-05-20 19:16] VITALS: BP 118/59
--- NOTE | 2021-05-20 19:46 | CONS ---
DATE OF CONSULTATION: 05/20/2021 REASON FOR CONSULTATION: Left hip pain. BRIEF HISTORY: The patient is a 71-year-old female who was ambulating and fell forward on both of her knees. She has a known history of severe degenerative joint disease of the left hip, which is significantly aggravated after the fall. She had difficulty placing weight and weightbearing after the fall. Therefore, was brought to the hospital and subsequently admitted into the hospital for pain control and further evaluation. No other complaints at this time other than the hip pain. Past medical and surgical history, medications, allergies, review of systems are all reviewed and x-rays were reviewed with the patient. PHYSICAL EXAMINATION: Today, does not show any significant pain with log rolling, but any type of flexion, extension and abduction of the hip is very painful at this point as expected along the area of the hip joint itself. There is also some tenderness along the area of the greater trochanteric region with palpation, but no pain distally along the area of the knee. Distal neurovascular status is fully intact. IMAGING: X-rays shows severe degenerative joint disease of the left hip. No signs of an active fracture at this point. IMPRESSION: Severe degenerative joint disease, left hip. PLAN: I have talked with her admitting physician and we have discussed this, the fact that most likely this is severe degenerative joint disease, which is very irritated. She did do well with an intra-articular injection into that hip and did very well for an extended period of time. I understand that is going to be done here very shortly. If that does not help significantly or as we have discussed the possibility today of an MRI examination to further evaluate for the possibility of an occult fracture of the left hip, we will get that as soon as possible and treatment from my standpoint will depend on that. If it is degenerative joint disease as it appears that would be a scheduled total hip replacement at some point. If not, we will address that appropriately. Until then, she is limited weightbearing until the studies are done. GUEVARA WALTERS: Tahir TID: [id number]
[2021-05-20] MEDS: PSYLLIUM HUSK (SUGAR FREE) 1 PKT PACKET PO SCH (21:00)
[2021-05-20 22:59] VITALS: BP 107/54
[2021-05-21 02:50] VITALS: BP 107/56
[2021-05-21] MEDS: ACETAMINOPHEN 325 MG TABLET. PO PRN (03:27)
[2021-05-21] MEDS: HEPARIN for SUB-Q USE 5,000 UNIT/ML VIAL. SQ SCH ×3 (05:44→21:36)
[2021-05-21 07:00] VITALS: BP 113/61
[2021-05-21] MEDS: BUDESONIDE 0.5 MG/2 ML NEBU. NEB SCH (07:54)
[2021-05-21] MEDS: IPRATRPIUM/ALBUTEROL 0.5/2.5MG 3 ML NEBU. NEB SCH ×3 (07:54→15:50)
[2021-05-21 08:47] LABS: ALBUMIN 2.4 g/dL (3.4-5.0); ALBUMIN/GLOBULIN RATIO 0.6 (1.0-1.7); CALCIUM 8.4 mg/dL (8.5-10.1); CREATININE 1.4 mg/dL (0.6-1.0); GFR 44.6; POTASSIUM 4.3 mmol/L (3.5-5.1); TOTAL BILIRUBIN 0.3 mg/dL (0.2-1.0); TOTAL PROTEIN 6.2 g/dL (6.4-8.2)
--- NOTE | 2021-05-21 09:28 | PDOC ---
PROGRESS NOTES Date of Service DATE: 05/21/21 TIME: 09:19 Subjective Subjective She had fever last night. Objective Objective Vital Signs Date Time Temp Pulse Resp B/P (MAP) Pulse Ox O2 Delivery O2 Flow Rate FiO2 05/21/21 07:55 96 Nasal Cannula 4.0 05/21/21 07:00 99.7 91 18 113/61 (78) 99.7 Intake and Output 05/21/21 07:00 Intake Total 250 ml Balance 250 ml Intake Oral 250 ml # Voids 2 Physical Exam Physical Exam She is lethargic supine in bed receiving oxygen by nasal canula. She did not get her left hip injected yesterday and MRI scan of left hip is not diagnostic to completely rule out occult fracture of left hip. I spoke to Payton and Woody,both of them wants to see her on out patient basis for consideration of left AMITA. She may need follow up CT scan of left hip to completely rule out occult fracture of left hip. Plan Plan of Care To let hospitalist and orthopedics to decide on need for CT scan of left hip before proceeding with left hip joint injection with steroids. Comment Review of Relevant I have reviewed the following items robb (where applicable) has been applied. Labs Laboratory Tests Test 05/19/21 14:56 05/19/21 14:57 05/20/21 07:25 05/21/21 06:55 White Blood Count 9.5 x10^3/uL (4.0-11.0) Red Blood Count 3.83 x10^6/uL (3.50-5.40) Hemoglobin 11.3 g/dL (12.0-15.5) Hematocrit 35.3 % (36.0-47.0) Mean Corpuscular Volume 92 fL (79-100) Mean Corpuscular Hemoglobin 30 pg (25-35) Mean Corpuscular Hemoglobin Concent 32 g/dL (31-37) Red Cell Distribution Width 14.7 % (11.5-14.5) Platelet Count 181 x10^3/uL (140-400) Neutrophils (%) (Auto) 82 % (31-73) Lymphocytes (%) (Auto) 10 % (24-48) Monocytes (%) (Auto) 7 % (0-9) Eosinophils (%) (Auto) 0 % (0-3) Basophils (%) (Auto) 1 % (0-3) Neutrophils # (Auto) 7.7 x10^3/uL (1.8-7.7) Lymphocytes # (Auto) 0.9 x10^3/uL (1.0-4.8) Monocytes # (Auto) 0.7 x10^3/uL (0.0-1.1) Eosinophils # (Auto) 0.0 x10^3/uL (0.0-0.7) Basophils # (Auto) 0.1 x10^3/uL (0.0-0.2) Sodium Level 143 mmol/L (136-145) 145 mmol/L (136-145) 146 mmol/L (136-145) Potassium Level 4.0 mmol/L (3.5-5.1) 4.2 mmol/L (3.5-5.1) 4.3 mmol/L (3.5-5.1) Chloride Level 105 mmol/L (98-107) 103 mmol/L (98-107) 105 mmol/L (98-107) Carbon Dioxide Level 39 mmol/L (21-32) 35 mmol/L (21-32) 36 mmol/L (21-32) Anion Gap (6-14) 7 (6-14) 5 (6-14) Blood Urea Nitrogen 31 mg/dL (7-20) 34 mg/dL (7-20) 30 mg/dL (7-20) Creatinine 1.5 mg/dL (0.6-1.0) 1.5 mg/dL (0.6-1.0) 1.4 mg/dL (0.6-1.0) Estimated GFR (Cockcroft-Gault) 41.2 41.2 44.6 BUN/Creatinine Ratio 21 (6-20) 23 (6-20) 21 (6-20) Glucose Level 96 mg/dL (70-99) 101 mg/dL (70-99) 108 mg/dL (70-99) Calcium Level 8.8 mg/dL (8.5-10.1) 8.6 mg/dL (8.5-10.1) 8.4 mg/dL (8.5-10.1) Magnesium Level 2.8 mg/dL (1.8-2.4) Total Bilirubin 0.4 mg/dL (0.2-1.0) 0.3 mg/dL (0.2-1.0) 0.3 mg/dL (0.2-1.0) Aspartate Amino Transf (AST/SGOT) 68 U/L (15-37) 112 U/L (15-37) 89 U/L (15-37) Alanine Aminotransferase (ALT/SGPT) 33 U/L (14-59) 38 U/L (14-59) 36 U/L (14-59) Alkaline Phosphatase 47 U/L (46-116) 45 U/L (46-116) 42 U/L (46-116) Troponin I High Sensitivity 676 ng/L (4-50) 611 ng/L (4-50) BX-Imh-W-Type Natriuretic Peptide 428 pg/mL (0-124) Total Protein 7.3 g/dL (6.4-8.2) 6.6 g/dL (6.4-8.2) 6.2 g/dL (6.4-8.2) Albumin 3.0 g/dL (3.4-5.0) 2.8 g/dL (3.4-5.0) 2.4 g/dL (3.4-5.0) Albumin/Globulin Ratio 0.7 (1.0-1.7) 0.7 (1.0-1.7) 0.6 (1.0-1.7) Urine Collection Type Unknown Urine Color Judy Urine Clarity Cloudy Urine pH 5.0 (<5.0-8.0) Urine Specific [place] 1.020 (1.000-1.030) Urine Protein 100 mg/dL (NEG-TRACE) Urine Glucose (UA) Negative mg/dL (NEG) Urine Ketones (Stick) Trace mg/dL (NEG) Urine Blood Large (NEG) Urine Nitrite Negative (NEG) Urine Bilirubin Small (NEG) Urine Urobilinogen Dipstick 1.0 mg/dL (0.2 mg/dL) Urine Leukocyte Esterase Negative (NEG) Urine RBC 0 /HPF (0-2) Urine WBC 5-10 /HPF (0-4) Urine Squamous Epithelial Cells Mod /LPF Urine Amorphous Sediment Present /HPF Urine Bacteria Few /HPF (0-FEW) Urine Hyaline Casts Few /HPF Urine Granular Casts Few /HPF Urine Mucus Mod /LPF Iron Level 19 ug/dL (50-170) Total Iron Binding Capacity 182 ug/dL (250-450) Iron Saturation 10 % (15-34) Creatine Kinase 3146 U/L (26-192) 1237 U/L (26-192) Laboratory Tests Test 05/21/21 06:55 Sodium Level 146 mmol/L (136-145) Potassium Level 4.3 mmol/L (3.5-5.1) Chloride Level 105 mmol/L (98-107) Carbon Dioxide Level 36 mmol/L (21-32) Anion Gap 5 (6-14) Blood Urea Nitrogen 30 mg/dL (7-20) Creatinine 1.4 mg/dL (0.6-1.0) Estimated GFR (Cockcroft-Gault) 44.6 BUN/Creatinine Ratio 21 (6-20) Glucose Level 108 mg/dL (70-99) Calcium Level 8.4 mg/dL (8.5-10.1) Total Bilirubin 0.3 mg/dL (0.2-1.0) Aspartate Amino Transf (AST/SGOT) 89 U/L (15-37) Alanine Aminotransferase (ALT/SGPT) 36 U/L (14-59) Alkaline Phosphatase 42 U/L (46-116) Creatine Kinase 1237 U/L (26-192) Total Protein 6.2 g/dL (6.4-8.2) Albumin 2.4 g/dL (3.4-5.0) Albumin/Globulin Ratio 0.6 (1.0-1.7) Medications Current Medications Acetaminophen/ Hydrocodone Bitart (Lortab 5/325) 1 tab 1X ONCE PO ; Start 05/19/21 at 13:00; Stop 05/19/21 at 13:01; Status DC Naproxen (Naprosyn) 500 mg 1X ONCE PO Last administered on 05/19/21at 13:30; Start 05/19/21 at 13:30; Stop 05/19/21 at 13:31; Status DC Ondansetron HCl (Zofran) 4 mg PRN Q4HRS PRN IVP NAUSEA/VOMITING; Start 05/19/21 at 16:30 Acetaminophen (Tylenol) 650 mg PRN Q6HRS PRN PO MILD PAIN / TEMP > 100.3'F Last administered on 05/21/21at 03:27; Start 05/19/21 at 16:30 Psyllium Hydrophilic Mucilloid (Metamucil Fiber Packet) 1 pkt QHS PO ; Start 05/19/21 at 21:00 Sodium Chloride 1,000 ml @ 75 mls/hr [id number] IV Last administered on 05/20/21at 05:52; Start 05/19/21 at 17:15; Stop 05/20/21 at 17:14; Status DC Hydralazine HCl (Apresoline Inj) 10 mg PRN Q4HRS PRN IVP ELEVATED BP, SEE COMMENTS; Start 05/20/21 at 01:15 Tramadol HCl (Ultram) 50 mg PRN Q6HRS PRN PO PAIN MOD/SEVERE; Start 05/20/21 at 01:15 Guaifenesin (Robitussin Dm) 10 ml PRN Q6HRS PRN PO COUGH; Start 05/20/21 at 01:15 Albuterol/ Ipratropium (Duoneb) 3 ml RTQID NEB Last administered on 05/21/21at 07:54; Start 05/20/21 at 08:00 Albuterol Sulfate (Ventolin Neb Soln) 2.5 mg PRN Q4HRS PRN NEB SHORTNESS OF BREATH; Start 05/20/21 at 01:15 Budesonide (Pulmicort) 0.5 mg RTBID NEB Last administered on 05/21/21at 07:54; Start 05/20/21 at 08:00 Heparin Sodium (Porcine) (Heparin Sodium) 5,000 unit Q8HRS SQ Last administered on 05/21/21at 05:44; Start 05/20/21 at 06:00 Bupivacaine HCl (Sensorcaine-Mpf 0.25%) 10 ml 1X ONCE IJ ; Start 05/20/21 at 10:15; Stop 05/20/21 at 10:20; Status DC Lidocaine HCl (Lidocaine 1% 20ml Vial) 20 ml 1X ONCE INJ ; Start 05/20/21 at 10:15; Stop 05/20/21 at 10:20; Status DC Iohexol (Omnipaque 300 Mg/ml) 50 ml 1X ONCE IJ ; Start 05/20/21 at 10:15; Stop 05/20/21 at 10:20; Status DC Info (CONTRAST GIVEN -- Rx MONITORING) 1 each PRN DAILY PRN MC SEE COMMENTS; Start 05/20/21 at 10:30; Stop 05/22/21 at 10:29 Methylprednisolone Acetate (DEPO-Medrol 40MG VIAL) 40 mg STK-MED ONCE .ROUTE ; Start 05/20/21 at 12:33; Stop 05/20/21 at 12:33; Status DC Bupivacaine HCl (Sensorcaine Mpf 0.5%) 10 ml STK-MED ONCE .ROUTE ; Start 05/20/21 at 12:38; Stop 05/20/21 at 12:38; Status DC Active Scripts Active Reported Dulera 200 Mcg/5 Mcg Inhaler (Mometasone/Formoterol) 13 Gm Hfa.aer.ad 2 Puff INH BID Irbesartan-Hctz 150-12.5 Mg Tb (Irbesartan/Hydrochlorothiazide) 1 Each Tablet 1 Tab PO DAILY Naproxen 500 Mg Tablet 1 Tab PO BID Vitals/I & O Vital Sign - Last 24 Hours 05/20/21 05/20/21 05/20/21 05/20/21 11:00 12:04 15:00 15:49 Temp 99.7 99.8 99.7 99.8 Pulse 95 100 Resp 20 20 B/P (MAP) 100/61 (74) 141/53 (82) Pulse Ox 95 93 87 94 O2 Delivery Nasal Cannula Nasal Cannula Nasal Cannula Nasal Cannula O2 Flow Rate 4.0 4.0 4.0 4.0 05/20/21 05/20/21 05/20/21 05/20/21 19:16 19:40 21:07 22:59 Temp 99.9 100.0 99.9 100.0 Pulse 101 103 Resp 16 18 B/P (MAP) 118/59 (78) 107/54 (71) Pulse Ox 89 96 90 O2 Delivery Nasal Cannula Nasal Cannula Nasal Cannula Nasal Cannula O2 Flow Rate 4.0 4.0 4.0 4.0 05/21/21 05/21/21 05/21/21 02:50 07:00 07:55 Temp 101.6 99.7 101.6 99.7 Pulse 98 91 Resp 18 18 B/P (MAP) 107/56 (73) 113/61 (78) Pulse Ox 87 90 96 O2 Delivery Nasal Cannula Nasal Cannula Nasal Cannula O2 Flow Rate 4.0 4.0 4.0 Intake and Output 05/20/21 05/20/21 05/21/21 15:00 23:00 07:00 Intake Total 250 ml 0 ml 0 ml Balance 250 ml 0 ml 0 ml Justifications for Admission Other Justification NUSRAT CHARLES MD May 21, 2021 09:28
[2021-05-21 09:58] LABS: BASO % 1 % (0-3); EOS % 0 % (0-3); HEMATOCRIT 34.1 % (36.0-47.0); HEMOGLOBIN 10.9 g/dL (12.0-15.5); LYMPH # 0.9 x10^3/uL (1.0-4.8); LYMPH % 13 % (24-48); MEAN CORPUSCULAR HEMOGLOBIN 30 pg (25-35); MEAN CORPUSCULAR HGB CONC 32 g/dL (31-37); MEAN CORPUSCULAR VOLUME 92 fL (79-100); MONO # 0.3 x10^3/uL (0.0-1.1); MONO % 4 % (0-9); NEUT # 6.1 x10^3/uL (1.8-7.7); NEUT % 83 % (31-73); PLATELET COUNT 205 x10^3/uL (140-400); RED CELL DISTRIBUTION WIDTH 15.3 % (11.5-14.5); WHITE BLOOD COUNT 7.3 x10^3/uL (4.0-11.0)
[2021-05-21 11:00] VITALS: BP 105/56
--- NOTE | 2021-05-21 11:28 | NUR ---
Jailene LICONA advised this nurse that patient still had a low grade fever and her oxygen was saturating at 86%. Dr Nicholas called and advised to order blood cultures and order a nebulizer treatment. Cultures ordered and RT paged. will continue to monitor.
--- NOTE | 2021-05-21 12:34 | PDOC ---
[facility] PROGRESS NOTE Date of Service DOS: DATE: 05/21/21 TIME: 12:32 Chief Complaint Chief Complaint A/P: Intractable left hip pain - severe OA noted. With weakness after fall r/o occult fracture via MRI, will d/w ortho and PMR physicians Left leg weakness - no other neuro deficits, weakness is due to pain. Ortho and PMR consulted Unable to walk - due to left leg weakness, fall Anemia - will check iron JOSE - likely vasomotor nephropathy, will hold ARB/HCTZ, monitor renal function Transaminitis - as with JOSE may be rhabdo related Fall at home - with localized bruising. PT for gait training and assessment for safety Elevated troponin - possibly related to rhabdo. Will trend. Consult cardiology COPD - on home O2. Having asthmatic bronchitis, will cont dulera prn. Given her fever will start empiric rocephin and doxycycline and obtain influenza and COVID 19 swabs Chronic hypoxic respiratory failure - possibly acutely worsening, Will monitor pulse ox checks HTN - hold ARB/HCTZ. May start amlodipine if BP increases Bilateral knee abrasions - local wound care COVID 19 - addendum: Rapid covid 19 positive. Decadron, remdesivir, transfer to covid unit FEN - Regular diet PPX - heparin FULL CODE Dispo - inpatient History of Present Illness History of Present Illness Ms Kwan is a 71yo female with PMHx COPD on home O2, HTN, morbid obesity and osteoarthritis who comes to ED accompanied by her son for progressive weakness and left hip pain after a fall. She fell trying to get out of bed to go to the bathroom, slid off the bed and didn't make it to the bathroom, could not stand due to left leg weakness. She called EMS to get up. She has had left leg weakness for the past 2 days prior to arrival and has been mostly in bed. 2 days prior to presentation fell on the way to the bathroom and had both knees splay outward, has some abrasions on bilateral knees. Since then she has had pain and weakness in her left hip, can't bear weight on it. She notes previously she was seen outpatient for severe left hip OA and had excellent improvement for over a year with corticosteroid injection. Pelvis with no acute fracture or dislocation of the pelvis and left hip. Severe degenerative osteoarthritis of the left hip is redemonstrated. Knee radiographs with no acute fracture or dislocation of bilateral knees. left tib-fib radiograph with no acute fracture or dislocation of the left tibia- fibula. Labs with Troponin, 676, BNP 428. Cr 1.5, AST 68, Cr 3 EKG sinus rhythm with significant baseline artifact and prolonged QT 05/20: Troponin decreased. CK elevated creatinine LFTs unchanged. Still significant pain and some weakness left hip. Able to ambulate with physical therapy needs significant assistance, unable to move further than from bed to chair without complete assistance. MRI pelvis ordered. D/w radiology and ortho 05/21: Febrile to 101.6 F overnight. She still notes no worsening shortness of breath cough or upper airway symptoms. She has been taking her home O2 off and 0.102 desaturates to 84% left hip pain is a little better. MRI reviewed there is some motion degradation no occult fracture detected but with severe osteoarthrosis of left hip noted. Addendum: COVID 19 rapid positive Vitals/I&O Vitals/I&O: Vital Signs Date Time Temp Pulse Resp B/P (MAP) Pulse Ox O2 Delivery O2 Flow Rate FiO2 05/21/21 11:28 Nasal Cannula 5.0 05/21/21 07:55 96 05/21/21 07:00 99.7 91 18 113/61 (78) 99.7 I & O 05/20/21 05/20/21 05/21/21 15:00 23:00 07:00 Intake Total 250 ml 0 ml 0 ml Balance 250 ml 0 ml 0 ml Physical Exam General: Alert, Oriented X3, Cooperative, mild distress Abdomen: Normal bowel sounds, Soft, No tenderness, No hepatosplenomegaly, No masses Extremities: No clubbing, No cyanosis, No edema, Normal pulses, Other (left hip pain on external and internal rotation, pain on straight leg raise on left) Skin: Other (bilateral knee abrasions) Labs Labs: Laboratory Tests Test 05/21/21 06:55 White Blood Count 7.3 x10^3/uL (4.0-11.0) Red Blood Count 3.70 x10^6/uL (3.50-5.40) Hemoglobin 10.9 g/dL (12.0-15.5) Hematocrit 34.1 % (36.0-47.0) Mean Corpuscular Volume 92 fL (79-100) Mean Corpuscular Hemoglobin 30 pg (25-35) Mean Corpuscular Hemoglobin Concent 32 g/dL (31-37) Red Cell Distribution Width 15.3 % (11.5-14.5) Platelet Count 205 x10^3/uL (140-400) Neutrophils (%) (Auto) 83 % (31-73) Lymphocytes (%) (Auto) 13 % (24-48) Monocytes (%) (Auto) 4 % (0-9) Eosinophils (%) (Auto) 0 % (0-3) Basophils (%) (Auto) 1 % (0-3) Neutrophils # (Auto) 6.1 x10^3/uL (1.8-7.7) Lymphocytes # (Auto) 0.9 x10^3/uL (1.0-4.8) Monocytes # (Auto) 0.3 x10^3/uL (0.0-1.1) Eosinophils # (Auto) 0.0 x10^3/uL (0.0-0.7) Basophils # (Auto) 0.0 x10^3/uL (0.0-0.2) Sodium Level 146 mmol/L (136-145) Potassium Level 4.3 mmol/L (3.5-5.1) Chloride Level 105 mmol/L (98-107) Carbon Dioxide Level 36 mmol/L (21-32) Anion Gap 5 (6-14) Blood Urea Nitrogen 30 mg/dL (7-20) Creatinine 1.4 mg/dL (0.6-1.0) Estimated GFR (Cockcroft-Gault) 44.6 BUN/Creatinine Ratio 21 (6-20) Glucose Level 108 mg/dL (70-99) Calcium Level 8.4 mg/dL (8.5-10.1) Total Bilirubin 0.3 mg/dL (0.2-1.0) Aspartate Amino Transf (AST/SGOT) 89 U/L (15-37) Alanine Aminotransferase (ALT/SGPT) 36 U/L (14-59) Alkaline Phosphatase 42 U/L (46-116) Creatine Kinase 1237 U/L (26-192) Total Protein 6.2 g/dL (6.4-8.2) Albumin 2.4 g/dL (3.4-5.0) Albumin/Globulin Ratio 0.6 (1.0-1.7) Comment Review of Relevant I have reviewed the following items robb (where applicable) has been applied. Justifications for Admission Other Justification LAURA ALMENDAREZ MD May 21, 2021 12:34
[2021-05-21 13:37] LABS: INFLUENZA A PATIENT NEGATIVE (NEGATIVE); INFLUENZA B PATIENT NEGATIVE (NEGATIVE)
--- NOTE | 2021-05-21 14:50 | NUR ---
pt COVID + and transferred to room 500. Report given to Manda WYNNE.
[2021-05-21 15:00] VITALS: BP 125/62
[2021-05-21] MEDS ORDERED: REMDESIVIR LOAD in IV NORMAL SALINE 250ML TV IV ONE (15:00)
[2021-05-21] MEDS: DOXYCYCLINE HYCLATE 100 MG TABLET PO SCH ×2 (17:07→21:34)
[2021-05-21] MEDS: DEXAMETHASONE SOD PHOS 4 MG/ML VIAL IVP SCH (17:09)
[2021-05-21] MEDS: cefTRIAXone IV Push 1 GM VIAL. IVP SCH (17:10)
[2021-05-21 19:00] VITALS: BP 134/65
[2021-05-21] MEDS: PSYLLIUM HUSK (SUGAR FREE) 1 PKT PACKET PO SCH (21:34)
[2021-05-21 23:00] VITALS: BP 126/69
[2021-05-22 03:00] VITALS: BP 139/63
[2021-05-22] MEDS: HEPARIN for SUB-Q USE 5,000 UNIT/ML VIAL. SQ SCH ×3 (05:54→22:18)
[2021-05-22 07:00] VITALS: BP 142/62
[2021-05-22 08:01] LABS: CALCIUM 8.5 mg/dL (8.5-10.1); CREATININE 2.1 mg/dL (0.6-1.0); GFR 27.9; POTASSIUM 4.6 mmol/L (3.5-5.1)
[2021-05-22] MEDS: IPRATROPIUM/ALBUTEROL 20/100mcg/INH INHALER. INH SCH ×4 (08:06→22:17)
[2021-05-22] MEDS: FLUTICASONE FUROATE 100mcg/INH ELLIPTA INHALER. INH SCH (08:07)
[2021-05-22] MEDS: ASCORBIC ACID 500 MG TABLET PO SCH (08:09)
[2021-05-22] MEDS: ZINC SULFATE 220 MG CAPSULE. PO SCH (08:09)
[2021-05-22] MEDS: DEXAMETHASONE SOD PHOS 4 MG/ML VIAL IVP SCH (08:09)
[2021-05-22] MEDS: THIAMINE 100 MG TABLET. PO SCH (08:09)
[2021-05-22] MEDS: DOXYCYCLINE HYCLATE 100 MG TABLET PO SCH ×2 (08:09→22:17)
[2021-05-22 08:25] LABS: BASO % 0 % (0-3); EOS % 0 % (0-3); HEMATOCRIT 34.6 % (36.0-47.0); HEMOGLOBIN 10.9 g/dL (12.0-15.5); LYMPH # 0.6 x10^3/uL (1.0-4.8); LYMPH % 6 % (24-48); MEAN CORPUSCULAR HEMOGLOBIN 29 pg (25-35); MEAN CORPUSCULAR HGB CONC 32 g/dL (31-37); MEAN CORPUSCULAR VOLUME 93 fL (79-100); MONO # 0.3 x10^3/uL (0.0-1.1); MONO % 3 % (0-9); NEUT % 91 % (31-73); PLATELET COUNT 217 x10^3/uL (140-400); RED BLOOD COUNT 3.73 x10^6/uL (3.50-5.40); RED CELL DISTRIBUTION WIDTH 15.4 % (11.5-14.5); WHITE BLOOD COUNT 8.9 x10^3/uL (4.0-11.0)
[2021-05-22 11:00] VITALS: BP 140/61
[2021-05-22] MEDS: cefTRIAXone IV Push 1 GM VIAL. IVP SCH (14:24)
[2021-05-22] MEDS: REMDESIVIR 100mg in NORMAL SALINE 250ML X 4 DAYS IV SCH (14:24)
--- NOTE | 2021-05-22 14:48 | PDOC ---
GENERAL General: Patient examined chart reviewed today's hospital day 3 for this patient admitted with generalized weakness, malaise, acute renal failure secondary to d ehydration, and intractable hip arthritis. She was found to have COVID-19 which is likely the culprit for all of the above. Her creatinine is higher today at 2.1. She has been quite somnolent. We will initiate intravenous fluids and reassess in the morning. If her creatinine does not respond we will need nephrology consultation. Patient is on remdesivir and dexamethasone. We will continue current management otherwise. Time spent today is 30 minutes with greater than 50% in coordination of care most of which in extensive review of records regarding care plan and progress. Problems: (1) Weakness generalized (2) Arthritis of left hip (3) COVID-19 (4) Acute renal failure VITAL SIGNS Vital Signs/I&O: Vital Signs Date Time Temp Pulse Resp B/P (MAP) Pulse Ox O2 Delivery O2 Flow Rate FiO2 05/22/21 11:00 99.1 91 20 140/61 (87) 92 NonRebreather Mask 15.0 99.1 I & O 05/21/21 05/21/21 05/22/21 15:00 23:00 07:00 Intake Total 200 ml 0 ml 260 ml Balance 200 ml 0 ml 260 ml Patient was sleeping during my visit today she is on high flow oxygen resting comfortably Chest bilateral equal air entry though diminished throughout no crackles or wheezes are noted Heart S1-S2 normal regular rate and rhythm no murmurs or gallops are noted Abdomen is obese soft nontender nondistended no masses organomegaly noted Extremity exam is unremarkable for acute abnormality ALLERGIES Allergies: Allergies Coded Allergies Type Severity Reaction Last Updated Verified No Known Drug Allergies 05/19/21 No MEDS Medications: Current Medications Medications (Trade) Dose Ordered Sig/Teresa Start Time Stop Time Status Last Admin Dose Admin Acetaminophen (Tylenol) 650 mg PRN Q6HRS PRN 05/19/21 16:30 05/21/21 03:27 Acetaminophen/ Hydrocodone Bitart (Lortab 5/325) 1 tab 1X ONCE 05/19/21 13:00 05/19/21 13:01 DC Albuterol Sulfate (Ventolin Neb Soln) 2.5 mg PRN Q4HRS PRN 05/20/21 01:15 Albuterol/ Ipratropium (Combivent Respimat 20-100 Mcg) 1 puff RTQID 05/22/21 08:00 05/22/21 12:09 Albuterol/ Ipratropium (Duoneb) 3 ml RTQID 05/20/21 08:00 05/21/21 22:49 DC 05/21/21 11:26 Ascorbic Acid (Vitamin C) 500 mg DAILY 05/22/21 09:00 05/22/21 08:09 Budesonide (Pulmicort) 0.5 mg RTBID 05/20/21 08:00 05/21/21 22:49 DC 05/21/21 07:54 Bupivacaine HCl (Sensorcaine Mpf 0.5%) 10 ml STK-MED ONCE 05/20/21 12:38 05/20/21 12:38 DC Bupivacaine HCl (Sensorcaine-Mpf 0.25%) 10 ml 1X ONCE 05/20/21 10:15 05/20/21 10:20 DC Ceftriaxone Sodium (Rocephin) 1 gm Q24H 05/21/21 13:00 05/22/21 14:24 Dexamethasone Sodium Phosphate (Decadron) 6 mg DAILY 05/21/21 14:00 05/30/21 09:01 05/22/21 08:09 Doxycycline Hyclate (Vibra-Tab) 100 mg BID 05/21/21 13:00 05/22/21 08:09 Fluticasone Furoate (ARNUITY 100mcg ELLIPTA) 1 puff DAILY 05/22/21 09:00 05/22/21 08:07 Guaifenesin (Robitussin Dm) 10 ml PRN Q6HRS PRN 05/20/21 01:15 Heparin Sodium (Porcine) (Heparin Sodium) 5,000 unit Q8HRS 05/20/21 06:00 05/22/21 05:54 Hydralazine HCl (Apresoline Inj) 10 mg PRN Q4HRS PRN 05/20/21 01:15 Info (CONTRAST GIVEN -- Rx MONITORING) 1 each PRN DAILY PRN 05/20/21 10:30 05/22/21 10:29 DC Iohexol (Omnipaque 300 Mg/ml) 50 ml 1X ONCE 05/20/21 10:15 05/20/21 10:20 DC Lidocaine HCl (Lidocaine 1% 20ml Vial) 20 ml 1X ONCE 05/20/21 10:15 05/20/21 10:20 DC Methylprednisolone Acetate (DEPO-Medrol 40MG VIAL) 40 mg STK-MED ONCE 05/20/21 12:33 05/20/21 12:33 DC Naproxen (Naprosyn) 500 mg 1X ONCE 05/19/21 13:30 05/19/21 13:31 DC 05/19/21 13:30 Ondansetron HCl (Zofran) 4 mg PRN Q4HRS PRN 05/19/21 16:30 Psyllium Hydrophilic Mucilloid (Metamucil Fiber Packet) 1 pkt QHS 05/19/21 21:00 05/21/21 21:34 Remdesivir 100 mg/ Sodium Chloride 230 ml @ 460 mls/hr Q24H 05/22/21 14:00 05/25/21 14:29 05/22/21 14:24 Remdesivir 200 mg/ Sodium Chloride 210 ml @ 210 mls/hr 1X ONCE 05/21/21 15:00 05/21/21 15:59 DC 05/21/21 17:10 Sodium Chloride 1,000 ml @ 75 mls/hr [id number] 05/19/21 17:15 05/20/21 17:14 DC 05/20/21 05:52 Thiamine Mononitrate (Vitamin B-1) 100 mg DAILY 05/22/21 09:00 05/22/21 08:09 Tramadol HCl (Ultram) 50 mg PRN Q6HRS PRN 05/20/21 01:15 Zinc Sulfate (Orazinc) 220 mg DAILY 05/22/21 09:00 05/22/21 08:09 Current Medications Medications (Trade) Dose Ordered Sig/Teresa Route PRN Reason Start Time Stop Time Status Last Admin Dose Admin Remdesivir 200 mg/ Sodium Chloride 210 ml @ 210 mls/hr 1X ONCE IV 05/21/21 15:00 05/21/21 15:59 DC 05/21/21 17:10 Remdesivir 100 mg/ Sodium Chloride 230 ml @ 460 mls/hr Q24H IV 05/22/21 14:00 05/25/21 14:29 05/22/21 14:24 Zinc Sulfate (Orazinc) 220 mg DAILY PO 05/22/21 09:00 05/22/21 08:09 Thiamine Mononitrate (Vitamin B-1) 100 mg DAILY PO 05/22/21 09:00 05/22/21 08:09 Ascorbic Acid (Vitamin C) 500 mg DAILY PO 05/22/21 09:00 05/22/21 08:09 Fluticasone Furoate (ARNUITY 100mcg ELLIPTA) 1 puff DAILY INH 05/22/21 09:00 05/22/21 08:07 Albuterol/ Ipratropium (Combivent Respimat 20-100 Mcg) 1 puff RTQID INH 05/22/21 08:00 05/22/21 12:09 LAB Lab: Laboratory Tests Test 05/22/21 06:15 White Blood Count 8.9 x10^3/uL (4.0-11.0) Red Blood Count 3.73 x10^6/uL (3.50-5.40) Hemoglobin 10.9 g/dL (12.0-15.5) L Hematocrit 34.6 % (36.0-47.0) L Mean Corpuscular Volume 93 fL (79-100) Mean Corpuscular Hemoglobin 29 pg (25-35) Mean Corpuscular Hemoglobin Concent 32 g/dL (31-37) Red Cell Distribution Width 15.4 % (11.5-14.5) H Platelet Count 217 x10^3/uL (140-400) Neutrophils (%) (Auto) 91 % (31-73) H Lymphocytes (%) (Auto) 6 % (24-48) L Monocytes (%) (Auto) 3 % (0-9) Eosinophils (%) (Auto) 0 % (0-3) Basophils (%) (Auto) 0 % (0-3) Neutrophils # (Auto) 8.0 x10^3/uL (1.8-7.7) H Lymphocytes # (Auto) 0.6 x10^3/uL (1.0-4.8) L Monocytes # (Auto) 0.3 x10^3/uL (0.0-1.1) Eosinophils # (Auto) 0.0 x10^3/uL (0.0-0.7) Basophils # (Auto) 0.0 x10^3/uL (0.0-0.2) Sodium Level 145 mmol/L (136-145) Potassium Level 4.6 mmol/L (3.5-5.1) Chloride Level 106 mmol/L (98-107) Carbon Dioxide Level 36 mmol/L (21-32) H Anion Gap 3 (6-14) L Blood Urea Nitrogen 48 mg/dL (7-20) #H Creatinine 2.1 mg/dL (0.6-1.0) H Estimated GFR (Cockcroft-Gault) 27.9 Glucose Level 131 mg/dL (70-99) H Calcium Level 8.5 mg/dL (8.5-10.1) Laboratory Tests 05/22/21 06:15 Laboratory Tests 05/22/21 06:15 ASSESSMENT & PLAN A&P Plan as noted above This note was created using [employer] and may have omissions and/or errors due to the nature of real-time voice posting clerk. Justifications for Admission Other Justification SERGEI THAYER MD May 22, 2021 14:48
[2021-05-22 15:00] VITALS: BP 124/55
[2021-05-22] MEDS: IV NORMAL SALINE 1000ML BAG 1,000 ML IV SCH ×2 (18:06→22:17)
[2021-05-22 19:00] VITALS: BP 126/57
[2021-05-22] MEDS: PSYLLIUM HUSK (SUGAR FREE) 1 PKT PACKET PO SCH (22:17)
[2021-05-22 23:00] VITALS: BP 127/58
[2021-05-23 03:00] VITALS: BP 123/56
[2021-05-23] MEDS: HEPARIN for SUB-Q USE 5,000 UNIT/ML VIAL. SQ SCH ×3 (06:10→21:30)
[2021-05-23 07:00] VITALS: BP 119/58
[2021-05-23 08:39] LABS: ALBUMIN/GLOBULIN RATIO 0.5 (1.0-1.7); CALCIUM 8.5 mg/dL (8.5-10.1); CREATININE 2.1 mg/dL (0.6-1.0); GFR 27.9; POTASSIUM 5.2 mmol/L (3.5-5.1); TOTAL BILIRUBIN 0.2 mg/dL (0.2-1.0)
[2021-05-23 08:41] LABS: BASO % 0 % (0-3); EOS % 0 % (0-3); HEMATOCRIT 32.6 % (36.0-47.0); HEMOGLOBIN 10.2 g/dL (12.0-15.5); LYMPH # 0.8 x10^3/uL (1.0-4.8); LYMPH % 9 % (24-48); MEAN CORPUSCULAR HEMOGLOBIN 29 pg (25-35); MEAN CORPUSCULAR HGB CONC 31 g/dL (31-37); MEAN CORPUSCULAR VOLUME 93 fL (79-100); MONO # 0.7 x10^3/uL (0.0-1.1); MONO % 8 % (0-9); NEUT # 7.2 x10^3/uL (1.8-7.7); NEUT % 82 % (31-73); PLATELET COUNT 283 x10^3/uL (140-400); RED CELL DISTRIBUTION WIDTH 15.6 % (11.5-14.5); WHITE BLOOD COUNT 8.7 x10^3/uL (4.0-11.0)
--- NOTE | 2021-05-23 08:53 | PDOC ---
PROGRESS NOTES Date of Service DATE: 05/23/21 TIME: 08:49 Subjective Subjective She is being treated for Covid-19 breakthrough infection. Objective Objective Vital Signs Date Time Temp Pulse Resp B/P (MAP) Pulse Ox O2 Delivery O2 Flow Rate FiO2 05/23/21 07:00 98.3 78 16 119/58 (78) 95 Nasal Cannula 5.0 98.3 Intake and Output 05/23/21 07:00 Intake Total 790 ml Balance 790 ml Intake Oral 790 ml # Voids 3 Physical Exam Physical Exam As per nursing she is not getting up much. Plan Plan of Care To consider injecting her left hip joint by radiology when medically stable. Comment Review of Relevant I have reviewed the following items robb (where applicable) has been applied. Labs Laboratory Tests Test 05/21/21 12:35 05/21/21 13:00 05/22/21 06:15 05/23/21 07:35 Influenza Type A Antigen Negative (NEGATIVE) Influenza Type B Antigen Negative (NEGATIVE) SARS-CoV-2 Antigen (Rapid) Positive (NEGATIVE) White Blood Count 8.9 x10^3/uL (4.0-11.0) 8.7 x10^3/uL (4.0-11.0) Red Blood Count 3.73 x10^6/uL (3.50-5.40) 3.50 x10^6/uL (3.50-5.40) Hemoglobin 10.9 g/dL (12.0-15.5) 10.2 g/dL (12.0-15.5) Hematocrit 34.6 % (36.0-47.0) 32.6 % (36.0-47.0) Mean Corpuscular Volume 93 fL (79-100) 93 fL (79-100) Mean Corpuscular Hemoglobin 29 pg (25-35) 29 pg (25-35) Mean Corpuscular Hemoglobin Concent 32 g/dL (31-37) 31 g/dL (31-37) Red Cell Distribution Width 15.4 % (11.5-14.5) 15.6 % (11.5-14.5) Platelet Count 217 x10^3/uL (140-400) 283 x10^3/uL (140-400) Neutrophils (%) (Auto) 91 % (31-73) 82 % (31-73) Lymphocytes (%) (Auto) 6 % (24-48) 9 % (24-48) Monocytes (%) (Auto) 3 % (0-9) 8 % (0-9) Eosinophils (%) (Auto) 0 % (0-3) 0 % (0-3) Basophils (%) (Auto) 0 % (0-3) 0 % (0-3) Neutrophils # (Auto) 8.0 x10^3/uL (1.8-7.7) 7.2 x10^3/uL (1.8-7.7) Lymphocytes # (Auto) 0.6 x10^3/uL (1.0-4.8) 0.8 x10^3/uL (1.0-4.8) Monocytes # (Auto) 0.3 x10^3/uL (0.0-1.1) 0.7 x10^3/uL (0.0-1.1) Eosinophils # (Auto) 0.0 x10^3/uL (0.0-0.7) 0.0 x10^3/uL (0.0-0.7) Basophils # (Auto) 0.0 x10^3/uL (0.0-0.2) 0.0 x10^3/uL (0.0-0.2) Sodium Level 145 mmol/L (136-145) 146 mmol/L (136-145) Potassium Level 4.6 mmol/L (3.5-5.1) 5.2 mmol/L (3.5-5.1) Chloride Level 106 mmol/L (98-107) 109 mmol/L (98-107) Carbon Dioxide Level 36 mmol/L (21-32) 35 mmol/L (21-32) Anion Gap 3 (6-14) 2 (6-14) Blood Urea Nitrogen 48 mg/dL (7-20) 68 mg/dL (7-20) Creatinine 2.1 mg/dL (0.6-1.0) 2.1 mg/dL (0.6-1.0) Estimated GFR (Cockcroft-Gault) 27.9 27.9 Glucose Level 131 mg/dL (70-99) 132 mg/dL (70-99) Calcium Level 8.5 mg/dL (8.5-10.1) 8.5 mg/dL (8.5-10.1) BUN/Creatinine Ratio 32 (6-20) Total Bilirubin 0.2 mg/dL (0.2-1.0) Aspartate Amino Transf (AST/SGOT) 43 U/L (15-37) Alanine Aminotransferase (ALT/SGPT) 29 U/L (14-59) Alkaline Phosphatase 40 U/L (46-116) Total Protein 6.0 g/dL (6.4-8.2) Albumin 2.0 g/dL (3.4-5.0) Albumin/Globulin Ratio 0.5 (1.0-1.7) Laboratory Tests Test 05/23/21 07:35 White Blood Count 8.7 x10^3/uL (4.0-11.0) Red Blood Count 3.50 x10^6/uL (3.50-5.40) Hemoglobin 10.2 g/dL (12.0-15.5) Hematocrit 32.6 % (36.0-47.0) Mean Corpuscular Volume 93 fL (79-100) Mean Corpuscular Hemoglobin 29 pg (25-35) Mean Corpuscular Hemoglobin Concent 31 g/dL (31-37) Red Cell Distribution Width 15.6 % (11.5-14.5) Platelet Count 283 x10^3/uL (140-400) Neutrophils (%) (Auto) 82 % (31-73) Lymphocytes (%) (Auto) 9 % (24-48) Monocytes (%) (Auto) 8 % (0-9) Eosinophils (%) (Auto) 0 % (0-3) Basophils (%) (Auto) 0 % (0-3) Neutrophils # (Auto) 7.2 x10^3/uL (1.8-7.7) Lymphocytes # (Auto) 0.8 x10^3/uL (1.0-4.8) Monocytes # (Auto) 0.7 x10^3/uL (0.0-1.1) Eosinophils # (Auto) 0.0 x10^3/uL (0.0-0.7) Basophils # (Auto) 0.0 x10^3/uL (0.0-0.2) Sodium Level 146 mmol/L (136-145) Potassium Level 5.2 mmol/L (3.5-5.1) Chloride Level 109 mmol/L (98-107) Carbon Dioxide Level 35 mmol/L (21-32) Anion Gap 2 (6-14) Blood Urea Nitrogen 68 mg/dL (7-20) Creatinine 2.1 mg/dL (0.6-1.0) Estimated GFR (Cockcroft-Gault) 27.9 BUN/Creatinine Ratio 32 (6-20) Glucose Level 132 mg/dL (70-99) Calcium Level 8.5 mg/dL (8.5-10.1) Total Bilirubin 0.2 mg/dL (0.2-1.0) Aspartate Amino Transf (AST/SGOT) 43 U/L (15-37) Alanine Aminotransferase (ALT/SGPT) 29 U/L (14-59) Alkaline Phosphatase 40 U/L (46-116) Total Protein 6.0 g/dL (6.4-8.2) Albumin 2.0 g/dL (3.4-5.0) Albumin/Globulin Ratio 0.5 (1.0-1.7) Microbiology 05/21/21 Blood Culture - Preliminary, Resulted NO GROWTH AFTER 1 DAY 05/19/21 Urine Culture - Final, Complete Medications Current Medications Acetaminophen/ Hydrocodone Bitart (Lortab 5/325) 1 tab 1X ONCE PO ; Start 05/19/21 at 13:00; Stop 05/19/21 at 13:01; Status DC Naproxen (Naprosyn) 500 mg 1X ONCE PO Last administered on 05/19/21at 13:30; Start 05/19/21 at 13:30; Stop 05/19/21 at 13:31; Status DC Ondansetron HCl (Zofran) 4 mg PRN Q4HRS PRN IVP NAUSEA/VOMITING; Start 05/19/21 at 16:30 Acetaminophen (Tylenol) 650 mg PRN Q6HRS PRN PO MILD PAIN / TEMP > 100.3'F Last administered on 05/21/21at 03:27; Start 05/19/21 at 16:30 Psyllium Hydrophilic Mucilloid (Metamucil Fiber Packet) 1 pkt QHS PO Last administered on 05/22/21at 22:17; Start 05/19/21 at 21:00 Sodium Chloride 1,000 ml @ 75 mls/hr [id number] IV Last administered on 05/20/21at 05:52; Start 05/19/21 at 17:15; Stop 05/20/21 at 17:14; Status DC Hydralazine HCl (Apresoline Inj) 10 mg PRN Q4HRS PRN IVP ELEVATED BP, SEE COMMENTS; Start 05/20/21 at 01:15 Tramadol HCl (Ultram) 50 mg PRN Q6HRS PRN PO PAIN MOD/SEVERE; Start 05/20/21 at 01:15 Guaifenesin (Robitussin Dm) 10 ml PRN Q6HRS PRN PO COUGH; Start 05/20/21 at 01:15 Albuterol/ Ipratropium (Duoneb) 3 ml RTQID NEB Last administered on 05/21/21at 11:26; Start 05/20/21 at 08:00; Stop 05/21/21 at 22:49; Status DC Albuterol Sulfate (Ventolin Neb Soln) 2.5 mg PRN Q4HRS PRN NEB SHORTNESS OF FABRICE ATH; Start 05/20/21 at 01:15 Budesonide (Pulmicort) 0.5 mg RTBID NEB Last administered on 05/21/21at 07:54; Start 05/20/21 at 08:00; Stop 05/21/21 at 22:49; Status DC Heparin Sodium (Porcine) (Heparin Sodium) 5,000 unit Q8HRS SQ Last administered on 05/23/21at 06:10; Start 05/20/21 at 06:00 Bupivacaine HCl (Sensorcaine-Mpf 0.25%) 10 ml 1X ONCE IJ ; Start 05/20/21 at 10:15; Stop 05/20/21 at 10:20; Status DC Lidocaine HCl (Lidocaine 1% 20ml Vial) 20 ml 1X ONCE INJ ; Start 05/20/21 at 10:15; Stop 05/20/21 at 10:20; Status DC Iohexol (Omnipaque 300 Mg/ml) 50 ml 1X ONCE IJ ; Start 05/20/21 at 10:15; Stop 05/20/21 at 10:20; Status DC Info (CONTRAST GIVEN -- Rx MONITORING) 1 each PRN DAILY PRN MC SEE COMMENTS; Start 05/20/21 at 10:30; Stop 05/22/21 at 10:29; Status DC Methylprednisolone Acetate (DEPO-Medrol 40MG VIAL) 40 mg STK-MED ONCE .ROUTE ; Start 05/20/21 at 12:33; Stop 05/20/21 at 12:33; Status DC Bupivacaine HCl (Sensorcaine Mpf 0.5%) 10 ml STK-MED ONCE .ROUTE ; Start 05/20/21 at 12:38; Stop 05/20/21 at 12:38; Status DC Ceftriaxone Sodium (Rocephin) 1 gm Q24H IVP Last administered on 05/22/21at 14:24; Start 05/21/21 at 13:00 Doxycycline Hyclate (Vibra-Tab) 100 mg BID PO Last administered on 05/22/21at 22:17; Start 05/21/21 at 13:00 Remdesivir 200 mg/ Sodium Chloride 210 ml @ 210 mls/hr 1X ONCE IV Last administered on 05/21/21at 17:10; Start 05/21/21 at 15:00; Stop 05/21/21 at 15:59; Status DC Remdesivir 100 mg/ Sodium Chloride 230 ml @ 460 mls/hr Q24H IV Last administered on 05/22/21at 14:24; Start 05/22/21 at 14:00; Stop 05/25/21 at 14:29 Dexamethasone Sodium Phosphate (Decadron) 6 mg DAILY IVP Last administered on 05/22/21at 08:09; Start 05/21/21 at 14:00; Stop 05/30/21 at 09:01 Zinc Sulfate (Orazinc) 220 mg DAILY PO Last administered on 05/22/21at 08:09; Start 05/22/21 at 09:00 Thiamine Mononitrate (Vitamin B-1) 100 mg DAILY PO Last administered on 05/22/21at 08:09; Start 05/22/21 at 09:00 Ascorbic Acid (Vitamin C) 500 mg DAILY PO Last administered on 05/22/21at 08:09; Start 05/22/21 at 09:00 Fluticasone Furoate (ARNUITY 100mcg ELLIPTA) 1 puff DAILY INH Last administered on 05/22/21at 08:07; Start 05/22/21 at 09:00 Albuterol/ Ipratropium (Combivent Respimat 20-100 Mcg) 1 puff RTQID INH Last administered on 05/22/21at 22:17; Start 05/22/21 at 08:00 Sodium Chloride 1,000 ml @ 100 mls/hr Q10H IV Last administered on 05/22/21at 22:17; Start 05/22/21 at 14:45 Active Scripts Active Reported Dulera 200 Mcg/5 Mcg Inhaler (Mometasone/Formoterol) 13 Gm Hfa.aer.ad 2 Puff INH BID Irbesartan-Hctz 150-12.5 Mg Tb (Irbesartan/Hydrochlorothiazide) 1 Each Tablet 1 Tab PO DAILY Naproxen 500 Mg Tablet 1 Tab PO BID Vitals/I & O Vital Sign - Last 24 Hours 05/22/21 05/22/21 05/22/21 05/22/21 11:00 15:00 19:00 20:15 Temp 99.1 99.4 98.7 99.1 99.4 98.7 Pulse 91 78 91 Resp 20 19 19 B/P (MAP) 140/61 (87) 124/55 (78) 126/57 (80) Pulse Ox 92 92 91 O2 Delivery NonRebreather Mask Nasal Cannula NonRebreather Mask Nasal Cannula O2 Flow Rate 15.0 12.0 15.0 12.0 05/22/21 05/23/21 05/23/21 23:00 03:00 07:00 Temp 100.2 98.3 98.3 100.2 98.3 98.3 Pulse 86 87 78 Resp 19 19 16 B/P (MAP) 127/58 (81) 123/56 (78) 119/58 (78) Pulse Ox 95 94 95 O2 Delivery NonRebreather Mask Nasal Cannula Nasal Cannula O2 Flow Rate 15.0 5.0 5.0 Intake and Output 05/22/21 05/22/21 05/23/21 15:00 23:00 07:00 Intake Total 560 ml 200 ml 30 ml Balance 560 ml 200 ml 30 ml Justifications for Admission Other Justification NUSRAT CHARLES MD May 23, 2021 08:53
[2021-05-23] MEDS: DEXAMETHASONE SOD PHOS 4 MG/ML VIAL IVP SCH (09:22)
[2021-05-23] MEDS: ZINC SULFATE 220 MG CAPSULE. PO SCH (09:22)
[2021-05-23] MEDS: FLUTICASONE FUROATE 100mcg/INH ELLIPTA INHALER. INH SCH (09:23)
[2021-05-23] MEDS: THIAMINE 100 MG TABLET. PO SCH (09:23)
[2021-05-23] MEDS: IPRATROPIUM/ALBUTEROL 20/100mcg/INH INHALER. INH SCH ×4 (09:23→21:31)
[2021-05-23] MEDS: DOXYCYCLINE HYCLATE 100 MG TABLET PO SCH ×2 (09:23→21:29)
[2021-05-23] MEDS: ASCORBIC ACID 500 MG TABLET PO SCH (09:23)
[2021-05-23 11:00] VITALS: BP 114/54
[2021-05-23] MEDS: REMDESIVIR 100mg in NORMAL SALINE 250ML X 4 DAYS IV SCH (13:38)
[2021-05-23] MEDS: cefTRIAXone IV Push 1 GM VIAL. IVP SCH (13:39)
[2021-05-23 15:00] VITALS: BP 119/69
--- NOTE | 2021-05-23 17:22 | PDOC ---
[facility] PROGRESS NOTE Date of Service DOS: DATE: 05/23/21 TIME: 17:21 Chief Complaint Chief Complaint A/P: Intractable left hip pain - severe OA noted. With weakness after fall r/o occult fracture via MRI, will d/w ortho and PMR physicians Left leg weakness - no other neuro deficits, weakness is due to pain. Ortho and PMR consulted Unable to walk - due to left leg weakness, fall Anemia - will check iron JOSE - likely vasomotor nephropathy, will hold ARB/HCTZ, monitor renal function Transaminitis - as with JOSE may be rhabdo related Fall at home - with localized bruising. PT for gait training and assessment for safety Elevated troponin - possibly related to rhabdo. Will trend. Consult cardiology COPD - on home O2. Having asthmatic bronchitis, will cont dulera prn. Given her fever will start empiric rocephin and doxycycline and obtain influenza and COVID 19 swabs Chronic hypoxic respiratory failure - possibly acutely worsening, Will monitor pulse ox checks HTN - hold ARB/HCTZ. May start amlodipine if BP increases Bilateral knee abrasions - local wound care COVID 19 - addendum: Rapid covid 19 positive. Decadron, remdesivir, transfer to covid unit FEN - Regular diet PPX - heparin FULL CODE Dispo - inpatient History of Present Illness History of Present Illness Ms Kwan is a 71yo female with PMHx COPD on home O2, HTN, morbid obesity and osteoarthritis who comes to ED accompanied by her son for progressive weakness and left hip pain after a fall. She fell trying to get out of bed to go to the bathroom, slid off the bed and didn't make it to the bathroom, could not stand due to left leg weakness. She called EMS to get up. She has had left leg weakness for the past 2 days prior to arrival and has been mostly in bed. 2 days prior to presentation fell on the way to the bathroom and had both knees splay outward, has some abrasions on bilateral knees. Since then she has had pain and weakness in her left hip, can't bear weight on it. She notes previously she was seen outpatient for severe left hip OA and had excellent improvement for over a year with corticosteroid injection. Pelvis with no acute fracture or dislocation of the pelvis and left hip. Severe degenerative osteoarthritis of the left hip is redemonstrated. Knee radiographs with no acute fracture or dislocation of bilateral knees. left tib-fib radiograph with no acute fracture or dislocation of the left tibia- fibula. Labs with Troponin, 676, BNP 428. Cr 1.5, AST 68, Cr 3 EKG sinus rhythm with significant baseline artifact and prolonged QT 05/20: Troponin decreased. CK elevated creatinine LFTs unchanged. Still significant pain and some weakness left hip. Able to ambulate with physical therapy needs significant assistance, unable to move further than from bed to chair without complete assistance. MRI pelvis ordered. D/w radiology and ortho 05/21: Febrile to 101.6 F overnight. She still notes no worsening shortness of breath cough or upper airway symptoms. She has been taking her home O2 off and 0.102 desaturates to 84% left hip pain is a little better. MRI reviewed there is some motion degradation no occult fracture detected but with severe osteoarthrosis of left hip noted. Addendum: COVID 19 rapid positive 05/23 Patient evaluated examined at bedside. Resting in bed still requiring significant amount of supplemental O2. Needs hip injection per PMR team will wait till oxygen status little more stable before requesting this through interventional radiology. Otherwise continue COVID treatment. Plan of care discussed with bedside RN. Vitals/I&O Vitals/I&O: Vital Signs Date Time Temp Pulse Resp B/P (MAP) Pulse Ox O2 Delivery O2 Flow Rate FiO2 05/23/21 15:00 98.3 68 18 119/69 (86) 96 Nasal Cannula 5.0 98.3 I & O 05/22/21 05/22/21 05/23/21 15:00 23:00 07:00 Intake Total 560 ml 200 ml 30 ml Balance 560 ml 200 ml 30 ml Physical Exam General: Alert, Oriented X3, Cooperative, mild distress Abdomen: Normal bowel sounds, Soft, No tenderness, No hepatosplenomegaly, No masses Extremities: No clubbing, No cyanosis, No edema, Normal pulses, Other (left hip pain on external and internal rotation, pain on straight leg raise on left) Skin: Other (bilateral knee abrasions) Labs Labs: Laboratory Tests Test 05/23/21 07:35 White Blood Count 8.7 x10^3/uL (4.0-11.0) Red Blood Count 3.50 x10^6/uL (3.50-5.40) Hemoglobin 10.2 g/dL (12.0-15.5) Hematocrit 32.6 % (36.0-47.0) Mean Corpuscular Volume 93 fL (79-100) Mean Corpuscular Hemoglobin 29 pg (25-35) Mean Corpuscular Hemoglobin Concent 31 g/dL (31-37) Red Cell Distribution Width 15.6 % (11.5-14.5) Platelet Count 283 x10^3/uL (140-400) Neutrophils (%) (Auto) 82 % (31-73) Lymphocytes (%) (Auto) 9 % (24-48) Monocytes (%) (Auto) 8 % (0-9) Eosinophils (%) (Auto) 0 % (0-3) Basophils (%) (Auto) 0 % (0-3) Neutrophils # (Auto) 7.2 x10^3/uL (1.8-7.7) Lymphocytes # (Auto) 0.8 x10^3/uL (1.0-4.8) Monocytes # (Auto) 0.7 x10^3/uL (0.0-1.1) Eosinophils # (Auto) 0.0 x10^3/uL (0.0-0.7) Basophils # (Auto) 0.0 x10^3/uL (0.0-0.2) Sodium Level 146 mmol/L (136-145) Potassium Level 5.2 mmol/L (3.5-5.1) Chloride Level 109 mmol/L (98-107) Carbon Dioxide Level 35 mmol/L (21-32) Anion Gap 2 (6-14) Blood Urea Nitrogen 68 mg/dL (7-20) Creatinine 2.1 mg/dL (0.6-1.0) Estimated GFR (Cockcroft-Gault) 27.9 BUN/Creatinine Ratio 32 (6-20) Glucose Level 132 mg/dL (70-99) Calcium Level 8.5 mg/dL (8.5-10.1) Total Bilirubin 0.2 mg/dL (0.2-1.0) Aspartate Amino Transf (AST/SGOT) 43 U/L (15-37) Alanine Aminotransferase (ALT/SGPT) 29 U/L (14-59) Alkaline Phosphatase 40 U/L (46-116) Total Protein 6.0 g/dL (6.4-8.2) Albumin 2.0 g/dL (3.4-5.0) Albumin/Globulin Ratio 0.5 (1.0-1.7) Comment Review of Relevant I have reviewed the following items robb (where applicable) has been applied. Justifications for Admission Other Justification LAURA AMAYA MD May 23, 2021 17:22
[2021-05-23] MEDS: IV NORMAL SALINE 1000ML BAG 1,000 ML IV SCH ×2 (18:05→20:45)
[2021-05-23 19:00] VITALS: BP 112/53
[2021-05-23] MEDS: LACTOBACILLUS RHAMNOSUS GG 1 CAPSULE. PO SCH (21:29)
[2021-05-23] MEDS: PSYLLIUM HUSK (SUGAR FREE) 1 PKT PACKET PO SCH (21:29)
[2021-05-23 23:00] VITALS: BP 115/54
[2021-05-24 03:00] VITALS: BP 120/56
[2021-05-24] MEDS: HEPARIN for SUB-Q USE 5,000 UNIT/ML VIAL. SQ SCH ×3 (05:56→20:05)
[2021-05-24] MEDS: IV NORMAL SALINE 1000ML BAG 1,000 ML IV SCH ×2 (05:59→15:55)
[2021-05-24 07:00] VITALS: BP 139/63
[2021-05-24] MEDS: FLUTICASONE FUROATE 100mcg/INH ELLIPTA INHALER. INH SCH (09:00)
--- NOTE | 2021-05-24 10:18 | PDOC ---
PROGRESS NOTES Date of Service DATE: 05/24/21 TIME: 10:15 Subjective Subjective She continues with left hip pain with movement. Objective Objective Vital Signs Date Time Temp Pulse Resp B/P (MAP) Pulse Ox O2 Delivery O2 Flow Rate FiO2 05/24/21 07:00 98.0 71 16 139/63 (88) 92 Nasal Cannula 12.0 98.0 Intake and Output 05/24/21 07:00 Intake Total 600 ml Output Total 0 ml Balance 600 ml Intake Oral 600 ml Output Urine Total 0 ml # Voids 5 Physical Exam Physical Exam She is supine in bed and continues with mobility limitations secondary to left hip pain and she physical therapy recommends SNF transfer when medically stable. Plan Plan of Care To have her left hip joint injected with depo-medrol when she is medically stable. Comment Review of Relevant I have reviewed the following items robb (where applicable) has been applied. Labs Laboratory Tests Test 05/23/21 07:35 White Blood Count 8.7 x10^3/uL (4.0-11.0) Red Blood Count 3.50 x10^6/uL (3.50-5.40) Hemoglobin 10.2 g/dL (12.0-15.5) Hematocrit 32.6 % (36.0-47.0) Mean Corpuscular Volume 93 fL (79-100) Mean Corpuscular Hemoglobin 29 pg (25-35) Mean Corpuscular Hemoglobin Concent 31 g/dL (31-37) Red Cell Distribution Width 15.6 % (11.5-14.5) Platelet Count 283 x10^3/uL (140-400) Neutrophils (%) (Auto) 82 % (31-73) Lymphocytes (%) (Auto) 9 % (24-48) Monocytes (%) (Auto) 8 % (0-9) Eosinophils (%) (Auto) 0 % (0-3) Basophils (%) (Auto) 0 % (0-3) Neutrophils # (Auto) 7.2 x10^3/uL (1.8-7.7) Lymphocytes # (Auto) 0.8 x10^3/uL (1.0-4.8) Monocytes # (Auto) 0.7 x10^3/uL (0.0-1.1) Eosinophils # (Auto) 0.0 x10^3/uL (0.0-0.7) Basophils # (Auto) 0.0 x10^3/uL (0.0-0.2) Sodium Level 146 mmol/L (136-145) Potassium Level 5.2 mmol/L (3.5-5.1) Chloride Level 109 mmol/L (98-107) Carbon Dioxide Level 35 mmol/L (21-32) Anion Gap 2 (6-14) Blood Urea Nitrogen 68 mg/dL (7-20) Creatinine 2.1 mg/dL (0.6-1.0) Estimated GFR (Cockcroft-Gault) 27.9 BUN/Creatinine Ratio 32 (6-20) Glucose Level 132 mg/dL (70-99) Calcium Level 8.5 mg/dL (8.5-10.1) Total Bilirubin 0.2 mg/dL (0.2-1.0) Aspartate Amino Transf (AST/SGOT) 43 U/L (15-37) Alanine Aminotransferase (ALT/SGPT) 29 U/L (14-59) Alkaline Phosphatase 40 U/L (46-116) Total Protein 6.0 g/dL (6.4-8.2) Albumin 2.0 g/dL (3.4-5.0) Albumin/Globulin Ratio 0.5 (1.0-1.7) Microbiology 05/21/21 Blood Culture - Preliminary, Resulted NO GROWTH AFTER 2 DAYS 05/19/21 Urine Culture - Final, Complete Medications Current Medications Acetaminophen/ Hydrocodone Bitart (Lortab 5/325) 1 tab 1X ONCE PO ; Start 05/19/21 at 13:00; Stop 05/19/21 at 13:01; Status DC Naproxen (Naprosyn) 500 mg 1X ONCE PO Last administered on 05/19/21at 13:30; Start 05/19/21 at 13:30; Stop 05/19/21 at 13:31; Status DC Ondansetron HCl (Zofran) 4 mg PRN Q4HRS PRN IVP NAUSEA/VOMITING; Start 05/19/21 at 16:30 Acetaminophen (Tylenol) 650 mg PRN Q6HRS PRN PO MILD PAIN / TEMP > 100.3'F Last administered on 05/21/21at 03:27; Start 05/19/21 at 16:30 Psyllium Hydrophilic Mucilloid (Metamucil Fiber Packet) 1 pkt QHS PO Last adm inistered on 05/23/21at 21:29; Start 05/19/21 at 21:00 Sodium Chloride 1,000 ml @ 75 mls/hr [id number] IV Last administered on 05/20/21at 05:52; Start 05/19/21 at 17:15; Stop 05/20/21 at 17:14; Status DC Hydralazine HCl (Apresoline Inj) 10 mg PRN Q4HRS PRN IVP ELEVATED BP, SEE COMMENTS; Start 05/20/21 at 01:15 Tramadol HCl (Ultram) 50 mg PRN Q6HRS PRN PO PAIN MOD/SEVERE; Start 05/20/21 at 01:15 Guaifenesin (Robitussin Dm) 10 ml PRN Q6HRS PRN PO COUGH; Start 05/20/21 at 01:15 Albuterol/ Ipratropium (Duoneb) 3 ml RTQID NEB Last administered on 05/21/21at 11:26; Start 05/20/21 at 08:00; Stop 05/21/21 at 22:49; Status DC Albuterol Sulfate (Ventolin Neb Soln) 2.5 mg PRN Q4HRS PRN NEB SHORTNESS OF BREATH; Start 05/20/21 at 01:15 Budesonide (Pulmicort) 0.5 mg RTBID NEB Last administered on 05/21/21at 07:54; Start 05/20/21 at 08:00; Stop 05/21/21 at 22:49; Status DC Heparin Sodium (Porcine) (Heparin Sodium) 5,000 unit Q8HRS SQ Last administered on 05/24/21at 05:56; Start 05/20/21 at 06:00 Bupivacaine HCl (Sensorcaine-Mpf 0.25%) 10 ml 1X ONCE IJ ; Start 05/20/21 at 10:15; Stop 05/20/21 at 10:20; Status DC Lidocaine HCl (Lidocaine 1% 20ml Vial) 20 ml 1X ONCE INJ ; Start 05/20/21 at 10:15; Stop 05/20/21 at 10:20; Status DC Iohexol (Omnipaque 300 Mg/ml) 50 ml 1X ONCE IJ ; Start 05/20/21 at 10:15; Stop 05/20/21 at 10:20; Status DC Info (CONTRAST GIVEN -- Rx MONITORING) 1 each PRN DAILY PRN MC SEE COMMENTS; Start 05/20/21 at 10:30; Stop 05/22/21 at 10:29; Status DC Methylprednisolone Acetate (DEPO-Medrol 40MG VIAL) 40 mg STK-MED ONCE .ROUTE ; Start 05/20/21 at 12:33; Stop 05/20/21 at 12:33; Status DC Bupivacaine HCl (Sensorcaine Mpf 0.5%) 10 ml STK-MED ONCE .ROUTE ; Start 05/20/21 at 12:38; Stop 05/20/21 at 12:38; Status DC Ceftriaxone Sodium (Rocephin) 1 gm Q24H IVP Last administered on 05/23/21at 13:39; Start 05/21/21 at 13:00 Doxycycline Hyclate (Vibra-Tab) 100 mg BID PO Last administered on 05/23/21at 21:29; Start 05/21/21 at 13:00 Remdesivir 200 mg/ Sodium Chloride 210 ml @ 210 mls/hr 1X ONCE IV Last administered on 05/21/21at 17:10; Start 05/21/21 at 15:00; Stop 05/21/21 at 15:59; Status DC Remdesivir 100 mg/ Sodium Chloride 230 ml @ 460 mls/hr Q24H IV Last a dministered on 05/23/21at 13:38; Start 05/22/21 at 14:00; Stop 05/25/21 at 14:29 Dexamethasone Sodium Phosphate (Decadron) 6 mg DAILY IVP Last administered on 05/23/21at 09:22; Start 05/21/21 at 14:00; Stop 05/30/21 at 09:01 Zinc Sulfate (Orazinc) 220 mg DAILY PO Last administered on 05/23/21at 09:22; Start 05/22/21 at 09:00 Thiamine Mononitrate (Vitamin B-1) 100 mg DAILY PO Last administered on 05/23/21at 09:23; Start 05/22/21 at 09:00 Ascorbic Acid (Vitamin C) 500 mg DAILY PO Last administered on 05/23/21at 09:23; Start 05/22/21 at 09:00 Fluticasone Furoate (ARNUITY 100mcg ELLIPTA) 1 puff DAILY INH Last administered on 05/23/21at 09:23; Start 05/22/21 at 09:00 Albuterol/ Ipratropium (Combivent Respimat 20-100 Mcg) 1 puff RTQID INH Last administered on 05/23/21at 21:31; Start 05/22/21 at 08:00 Sodium Chloride 1,000 ml @ 100 mls/hr Q10H IV Last administered on 05/24/21at 05:59; Start 05/22/21 at 14:45 Lactobacillus Rhamnosus (Culturelle) 1 cap BID PO Last administered on 05/23/21at 21:29; Start 05/23/21 at 21:00 Active Scripts Active Reported Dulera 200 Mcg/5 Mcg Inhaler (Mometasone/Formoterol) 13 Gm Hfa.aer.ad 2 Puff INH BID Irbesartan-Hctz 150-12.5 Mg Tb (Irbesartan/Hydrochlorothiazide) 1 Each Tablet 1 Tab PO DAILY Naproxen 500 Mg Tablet 1 Tab PO BID Vitals/I & O Vital Sign - Last 24 Hours 05/23/21 05/23/21 05/23/21 05/23/21 11:00 15:00 19:00 20:00 Temp 98.2 98.3 99.9 98.2 98.3 99.9 Pulse 72 68 72 Resp 18 18 16 B/P (MAP) 114/54 (74) 119/69 (86) 112/53 (72) Pulse Ox 92 96 97 O2 Delivery Nasal Cannula Nasal Cannula Nasal Cannula Nasal Cannula O2 Flow Rate 5.0 5.0 12.0 12.0 05/23/21 05/24/21 05/24/21 23:00 03:00 07:00 Temp 99.0 98.8 98.0 99.0 98.8 98.0 Pulse 80 70 71 Resp 20 20 16 B/P (MAP) 115/54 (74) 120/56 (77) 139/63 (88) Pulse Ox 93 98 92 O2 Delivery Nasal Cannula Nasal Cannula Nasal Cannula O2 Flow Rate 12.0 12.0 12.0 Intake and Output 05/23/21 05/23/21 05/24/21 15:00 23:00 07:00 Intake Total 600 ml Output Total 0 ml 0 ml Balance 600 ml 0 ml 0 ml Justifications for Admission Other Justification NUSRAT CHARLES MD May 24, 2021 10:18
[2021-05-24 11:00] VITALS: BP 160/71
[2021-05-24] MEDS: THIAMINE 100 MG TABLET. PO SCH (11:58)
[2021-05-24] MEDS: IPRATROPIUM/ALBUTEROL 20/100mcg/INH INHALER. INH SCH ×4 (11:58→20:02)
[2021-05-24] MEDS: DOXYCYCLINE HYCLATE 100 MG TABLET PO SCH ×2 (11:58→20:04)
[2021-05-24] MEDS: ZINC SULFATE 220 MG CAPSULE. PO SCH (11:58)
[2021-05-24] MEDS: ASCORBIC ACID 500 MG TABLET PO SCH (11:58)
[2021-05-24] MEDS: LACTOBACILLUS RHAMNOSUS GG 1 CAPSULE. PO SCH ×2 (11:58→20:03)
[2021-05-24] MEDS: DEXAMETHASONE SOD PHOS 4 MG/ML VIAL IVP SCH (11:59)
[2021-05-24 15:00] VITALS: BP 129/61
[2021-05-24] MEDS: REMDESIVIR 100mg in NORMAL SALINE 250ML X 4 DAYS IV SCH (15:36)
[2021-05-24] MEDS: cefTRIAXone IV Push 1 GM VIAL. IVP SCH (15:37)
[2021-05-24 19:00] VITALS: BP 152/70
[2021-05-24] MEDS: PSYLLIUM HUSK (SUGAR FREE) 1 PKT PACKET PO SCH (20:03)
[2021-05-24 23:00] VITALS: BP 144/67
--- NOTE | 2021-05-24 23:11 | PDOC ---
[facility] PROGRESS NOTE Date of Service DOS: DATE: 05/24/21 TIME: 23:10 Chief Complaint Chief Complaint A/P: Intractable left hip pain - severe OA noted. With weakness after fall r/o occult fracture via MRI, will d/w ortho and PMR physicians Left leg weakness - no other neuro deficits, weakness is due to pain. Ortho and PMR consulted Unable to walk - due to left leg weakness, fall Anemia - will check iron JOSE - likely vasomotor nephropathy, will hold ARB/HCTZ, monitor renal function Transaminitis - as with JOSE may be rhabdo related Fall at home - with localized bruising. PT for gait training and assessment for safety Elevated troponin - possibly related to rhabdo. Will trend. Consult cardiology COPD - on home O2. Having asthmatic bronchitis, will cont dulera prn. Given her fever will start empiric rocephin and doxycycline and obtain influenza and COVID 19 swabs Chronic hypoxic respiratory failure - possibly acutely worsening, Will monitor pulse ox checks HTN - hold ARB/HCTZ. May start amlodipine if BP increases Bilateral knee abrasions - local wound care COVID 19 - addendum: Rapid covid 19 positive. Decadron, remdesivir, transfer to covid unit FEN - Regular diet PPX - heparin FULL CODE Dispo - inpatient History of Present Illness History of Present Illness Ms Kwan is a 71yo female with PMHx COPD on home O2, HTN, morbid obesity and osteoarthritis who comes to ED accompanied by her son for progressive weakness and left hip pain after a fall. She fell trying to get out of bed to go to the bathroom, slid off the bed and didn't make it to the bathroom, could not stand due to left leg weakness. She called EMS to get up. She has had left leg weakness for the past 2 days prior to arrival and has been mostly in bed. 2 days prior to presentation fell on the way to the bathroom and had both knees splay outward, has some abrasions on bilateral knees. Since then she has had pain and weakness in her left hip, can't bear weight on it. She notes previously she was seen outpatient for severe left hip OA and had excellent improvement for over a year with corticosteroid injection. Pelvis with no acute fracture or dislocation of the pelvis and left hip. Severe degenerative osteoarthritis of the left hip is redemonstrated. Knee radiographs with no acute fracture or dislocation of bilateral knees. left tib-fib radiograph with no acute fracture or dislocation of the left tibia- fibula. Labs with Troponin, 676, BNP 428. Cr 1.5, AST 68, Cr 3 EKG sinus rhythm with significant baseline artifact and prolonged QT 05/20: Troponin decreased. CK elevated creatinine LFTs unchanged. Still significant pain and some weakness left hip. Able to ambulate with physical therapy needs significant assistance, unable to move further than from bed to chair without complete assistance. MRI pelvis ordered. D/w radiology and ortho 05/21: Febrile to 101.6 F overnight. She still notes no worsening shortness of breath cough or upper airway symptoms. She has been taking her home O2 off and 0.102 desaturates to 84% left hip pain is a little better. MRI reviewed there is some motion degradation no occult fracture detected but with severe osteoarthrosis of left hip noted. Addendum: COVID 19 rapid positive 05/23 Patient evaluated examined at bedside. Resting in bed still requiring significant amount of supplemental O2. Needs hip injection per PMR team will wait till oxygen status little more stable before requesting this through interventional radiology. Otherwise continue COVID treatment. Plan of care discussed with bedside RN. 05/24 Patient eval and examind at bedside. Still on high O2 requirements, wean as tolerated. Continue covid treatment. Plan discussed with bedside RN. Vitals/I&O Vitals/I&O: Vital Signs Date Time Temp Pulse Resp B/P (MAP) Pulse Ox O2 Delivery O2 Flow Rate FiO2 05/24/21 20:00 Nasal Cannula 10.0 05/24/21 19:00 98.4 72 18 152/70 (97) 97 98.4 I & O 05/23/21 05/23/21 05/24/21 15:00 23:00 07:00 Intake Total 600 ml Output Total 0 ml 0 ml Balance 600 ml 0 ml 0 ml Physical Exam General: Alert, Oriented X3, Cooperative, mild distress Abdomen: Normal bowel sounds, Soft, No tenderness, No hepatosplenomegaly, No masses Extremities: No clubbing, No cyanosis, No edema, Normal pulses, Other (left hip pain on external and internal rotation, pain on straight leg raise on left) Skin: Other (bilateral knee abrasions) Comment Review of Relevant I have reviewed the following items robb (where applicable) has been applied. Justifications for Admission Other Justification LAURA AMAYA MD May 24, 2021 23:11
[2021-05-25 03:00] VITALS: BP 144/69
[2021-05-25] MEDS: IV NORMAL SALINE 1000ML BAG 1,000 ML IV SCH ×3 (05:04→23:01)
[2021-05-25] MEDS: HEPARIN for SUB-Q USE 5,000 UNIT/ML VIAL. SQ SCH ×3 (05:05→20:59)
[2021-05-25 07:00] VITALS: BP 152/82
[2021-05-25] MEDS: FLUTICASONE FUROATE 100mcg/INH ELLIPTA INHALER. INH SCH (09:00)
[2021-05-25] MEDS: THIAMINE 100 MG TABLET. PO SCH (09:04)
[2021-05-25] MEDS: LACTOBACILLUS RHAMNOSUS GG 1 CAPSULE. PO SCH ×2 (09:04→20:59)
[2021-05-25] MEDS: DOXYCYCLINE HYCLATE 100 MG TABLET PO SCH ×2 (09:04→20:59)
[2021-05-25] MEDS: ASCORBIC ACID 500 MG TABLET PO SCH (09:04)
[2021-05-25] MEDS: IPRATROPIUM/ALBUTEROL 20/100mcg/INH INHALER. INH SCH ×4 (09:04→20:59)
[2021-05-25] MEDS: ZINC SULFATE 220 MG CAPSULE. PO SCH (09:04)
[2021-05-25] MEDS: DEXAMETHASONE SOD PHOS 4 MG/ML VIAL IVP SCH (09:05)
--- NOTE | 2021-05-25 09:09 | PDOC ---
PROGRESS NOTES Date of Service DATE: 05/25/21 TIME: 09:05 Subjective Subjective She continues with left hip pain. Objective Objective Vital Signs Date Time Temp Pulse Resp B/P (MAP) Pulse Ox O2 Delivery O2 Flow Rate FiO2 05/25/21 03:00 99.1 80 20 144/69 (94) 90 Nasal Cannula 15.0 99.1 Intake and Output 05/25/21 07:00 Intake Total 120 ml Balance 120 ml Intake Oral 120 ml # Voids 5 Physical Exam Physical Exam She is still requiring 2 person assistance with physical therapy for bed mobility secondary to left hip joint pain with movement. I spoke to nursing and physical therapy. Plan Plan of Care She is to receive left hip joint injection with depo-medrol when her medical condition is stable. Comment Review of Relevant I have reviewed the following items robb (where applicable) has been applied. Labs Microbiology 05/21/21 Blood Culture - Preliminary, Resulted NO GROWTH AFTER 3 DAYS 05/19/21 Urine Culture - Final, Complete Medications Current Medications Acetaminophen/ Hydrocodone Bitart (Lortab 5/325) 1 tab 1X ONCE PO ; Start 05/19/21 at 13:00; Stop 05/19/21 at 13:01; Status DC Naproxen (Naprosyn) 500 mg 1X ONCE PO Last administered on 05/19/21at 13:30; Start 05/19/21 at 13:30; Stop 05/19/21 at 13:31; Status DC Ondansetron HCl (Zofran) 4 mg PRN Q4HRS PRN IVP NAUSEA/VOMITING; Start 05/19/21 at 16:30 Acetaminophen (Tylenol) 650 mg PRN Q6HRS PRN PO MILD PAIN / TEMP > 100.3'F Last administered on 05/21/21at 03:27; Start 05/19/21 at 16:30 Psyllium Hydrophilic Mucilloid (Metamucil Fiber Packet) 1 pkt QHS PO Last administered on 05/24/21at 20:03; Start 05/19/21 at 21:00 Sodium Chloride 1,000 ml @ 75 mls/hr [id number] IV Last administered on 05/20/21at 05:52; Start 05/19/21 at 17:15; Stop 05/20/21 at 17:14; Status DC Hydralazine HCl (Apresoline Inj) 10 mg PRN Q4HRS PRN IVP ELEVATED BP, SEE COMMENTS; Start 05/20/21 at 01:15 Tramadol HCl (Ultram) 50 mg PRN Q6HRS PRN PO PAIN MOD/SEVERE; Start 05/20/21 at 01:15 Guaifenesin (Robitussin Dm) 10 ml PRN Q6HRS PRN PO COUGH; Start 05/20/21 at 01:15 Albuterol/ Ipratropium (Duoneb) 3 ml RTQID NEB Last administered on 05/21/21at 11:26; Start 05/20/21 at 08:00; Stop 05/21/21 at 22:49; Status DC Albuterol Sulfate (Ventolin Neb Soln) 2.5 mg PRN Q4HRS PRN NEB SHORTNESS OF BREATH; Start 05/20/21 at 01:15 Budesonide (Pulmicort) 0.5 mg RTBID NEB Last administered on 05/21/21at 07:54; Start 05/20/21 at 08:00; Stop 05/21/21 at 22:49; Status DC Heparin Sodium (Porcine) (Heparin Sodium) 5,000 unit Q8HRS SQ Last administered on 05/25/21at 05:05; Start 05/20/21 at 06:00 Bupivacaine HCl (Sensorcaine-Mpf 0.25%) 10 ml 1X ONCE IJ ; Start 05/20/21 at 10:15; Stop 05/20/21 at 10:20; Status DC Lidocaine HCl (Lidocaine 1% 20ml Vial) 20 ml 1X ONCE INJ ; Start 05/20/21 at 10:15; Stop 05/20/21 at 10:20; Status DC Iohexol (Omnipaque 300 Mg/ml) 50 ml 1X ONCE IJ ; Start 05/20/21 at 10:15; Stop 05/20/21 at 10:20; Status DC Info (CONTRAST GIVEN -- Rx MONITORING) 1 each PRN DAILY PRN MC SEE COMMENTS; Start 05/20/21 at 10:30; Stop 05/22/21 at 10:29; Status DC Methylprednisolone Acetate (DEPO-Medrol 40MG VIAL) 40 mg STK-MED ONCE .ROUTE ; Start 05/20/21 at 12:33; Stop 05/20/21 at 12:33; Status DC Bupivacaine HCl (Sensorcaine Mpf 0.5%) 10 ml STK-MED ONCE .ROUTE ; Start 05/20/21 at 12:38; Stop 05/20/21 at 12:38; Status DC Ceftriaxone Sodium (Rocephin) 1 gm Q24H IVP Last administered on 05/24/21at 15:37; Start 05/21/21 at 13:00 Doxycycline Hyclate (Vibra-Tab) 100 mg BID PO Last administered on 05/24/21at 20:04; Start 05/21/21 at 13:00 Remdesivir 200 mg/ Sodium Chloride 210 ml @ 210 mls/hr 1X ONCE IV Last administered on 05/21/21at 17:10; Start 05/21/21 at 15:00; Stop 05/21/21 at 15:59; Status DC Remdesivir 100 mg/ Sodium Chloride 230 ml @ 460 mls/hr Q24H IV Last administered on 05/24/21at 15:36; Start 05/22/21 at 14:00; Stop 05/25/21 at 14:29 Dexamethasone Sodium Phosphate (Decadron) 6 mg DAILY IVP Last administered on 05/24/21at 11:59; Start 05/21/21 at 14:00; Stop 05/30/21 at 09:01 Zinc Sulfate (Orazinc) 220 mg DAILY PO Last administered on 05/24/21at 11:58; Start 05/22/21 at 09:00 Thiamine Mononitrate (Vitamin B-1) 100 mg DAILY PO Last administered on 05/24/21at 11:58; Start 05/22/21 at 09:00 Ascorbic Acid (Vitamin C) 500 mg DAILY PO Last administered on 05/24/21at 11:58; Start 05/22/21 at 09:00 Fluticasone Furoate (ARNUITY 100mcg ELLIPTA) 1 puff DAILY INH Last administered on 05/24/21at 09:00; Start 05/22/21 at 09:00 Albuterol/ Ipratropium (Combivent Respimat 20-100 Mcg) 1 puff RTQID INH Last administered on 05/24/21at 20:02; Start 05/22/21 at 08:00 Sodium Chloride 1,000 ml @ 100 mls/hr Q10H IV Last administered on 05/25/21at 05:04; Start 05/22/21 at 14:45 Lactobacillus Rhamnosus (Culturelle) 1 cap BID PO Last administered on 05/24/21at 20:03; Start 05/23/21 at 21:00 Active Scripts Active Reported Dulera 200 Mcg/5 Mcg Inhaler (Mometasone/Formoterol) 13 Gm Hfa.aer.ad 2 Puff INH BID Irbesartan-Hctz 150-12.5 Mg Tb (Irbesartan/Hydrochlorothiazide) 1 Each Tablet 1 Tab PO DAILY Naproxen 500 Mg Tablet 1 Tab PO BID Vitals/I & O Vital Sign - Last 24 Hours 05/24/21 05/24/21 05/24/21 05/24/21 11:00 15:00 18:00 19:00 Temp 97.8 99.7 98.4 97.8 99.7 98.4 Pulse 79 83 72 Resp 18 18 18 B/P (MAP) 160/71 (100) 129/61 (83) 152/70 (97) Pulse Ox 91 100 97 O2 Delivery Nasal Cannula Nasal Cannula Nasal Cannula Nasal Cannula O2 Flow Rate 12.0 12.0 12.0 10.0 05/24/21 05/24/21 05/25/21 20:00 23:00 03:00 Temp 99.5 99.1 99.5 99.1 Pulse 70 80 Resp 15 20 B/P (MAP) 144/67 (92) 144/69 (94) Pulse Ox 93 90 O2 Delivery Nasal Cannula Nasal Cannula Nasal Cannula O2 Flow Rate 10.0 10.0 15.0 Intake and Output 05/24/21 05/24/21 05/25/21 15:00 23:00 07:00 Intake Total 120 ml 0 ml Balance 120 ml 0 ml Justifications for Admission Other Justification NUSRAT CHARLES MD May 25, 2021 09:08
[2021-05-25 11:00] VITALS: BP 150/78
[2021-05-25] MEDS: cefTRIAXone IV Push 1 GM VIAL. IVP SCH (13:25)
[2021-05-25] MEDS: REMDESIVIR 100mg in NORMAL SALINE 250ML X 4 DAYS IV SCH (13:25)
[2021-05-25 15:00] VITALS: BP 158/68
--- NOTE | 2021-05-25 16:33 | PDOC ---
[facility] PROGRESS NOTE Date of Service DOS: DATE: 05/25/21 TIME: 16:29 Chief Complaint Chief Complaint A/P: Intractable left hip pain - severe OA noted. With weakness after fall r/o occult fracture via MRI, will d/w ortho and PMR physicians Left leg weakness - no other neuro deficits, weakness is due to pain. Ortho and PMR consulted Unable to walk - due to left leg weakness, fall Anemia - will check iron JOSE - likely vasomotor nephropathy, will hold ARB/HCTZ, monitor renal function Transaminitis - as with JOSE may be rhabdo related Fall at home - with localized bruising. PT for gait training and assessment for safety Elevated troponin - possibly related to rhabdo. Will trend. Consult cardiology COPD - on home O2. Having asthmatic bronchitis, will cont dulera prn. Given her fever will start empiric rocephin and doxycycline and obtain influenza and COVID 19 swabs Chronic hypoxic respiratory failure - possibly acutely worsening, Will monitor pulse ox checks HTN - hold ARB/HCTZ. May start amlodipine if BP increases Bilateral knee abrasions - local wound care COVID 19 - addendum: Rapid covid 19 positive. Decadron, remdesivir, transfer to covid unit FEN - Regular diet PPX - heparin FULL CODE Dispo - inpatient History of Present Illness History of Present Illness Ms Kwan is a 71yo female with PMHx COPD on home O2, HTN, morbid obesity and osteoarthritis who comes to ED accompanied by her son for progressive weakness and left hip pain after a fall. She fell trying to get out of bed to go to the bathroom, slid off the bed and didn't make it to the bathroom, could not stand due to left leg weakness. She called EMS to get up. She has had left leg weakness for the past 2 days prior to arrival and has been mostly in bed. 2 days prior to presentation fell on the way to the bathroom and had both knees splay outward, has some abrasions on bilateral knees. Since then she has had pain and weakness in her left hip, can't bear weight on it. She notes previously she was seen outpatient for severe left hip OA and had excellent improvement for over a year with corticosteroid injection. Pelvis with no acute fracture or dislocation of the pelvis and left hip. Severe degenerative osteoarthritis of the left hip is redemonstrated. Knee radiographs with no acute fracture or dislocation of bilateral knees. left tib-fib radiograph with no acute fracture or dislocation of the left tibia- fibula. Labs with Troponin, 676, BNP 428. Cr 1.5, AST 68, Cr 3 EKG sinus rhythm with significant baseline artifact and prolonged QT 05/20: Troponin decreased. CK elevated creatinine LFTs unchanged. Still significant pain and some weakness left hip. Able to ambulate with physical therapy needs significant assistance, unable to move further than from bed to chair without complete assistance. MRI pelvis ordered. D/w radiology and ortho 05/21: Febrile to 101.6 F overnight. She still notes no worsening shortness of breath cough or upper airway symptoms. She has been taking her home O2 off and 0.102 desaturates to 84% left hip pain is a little better. MRI reviewed there is some motion degradation no occult fracture detected but with severe osteoarthrosis of left hip noted. Addendum: COVID 19 rapid positive 05/23 Patient evaluated examined at bedside. Resting in bed still requiring significant amount of supplemental O2. Needs hip injection per PMR team will wait till oxygen status little more stable before requesting this through interventional radiology. Otherwise continue COVID treatment. Plan of care discussed with bedside RN. 05/24 Patient eval and examind at bedside. Still on high O2 requirements, wean as tolerated. Continue covid treatment. Plan discussed with bedside RN. 05/25 Patient evaluated examined at bedside. Still too much oxygen. Wean as tolerated. Otherwise continue current. Too much oxygen for injection still. Vitals/I&O Vitals/I&O: Vital Signs Date Time Temp Pulse Resp B/P (MAP) Pulse Ox O2 Delivery O2 Flow Rate FiO2 05/25/21 11:00 98.5 87 18 150/78 (102) 92 High Flow Nasal Cannula 15.0 98.5 I & O 05/24/21 05/24/21 05/25/21 15:00 23:00 07:00 Intake Total 120 ml 0 ml Balance 120 ml 0 ml Physical Exam General: Alert, Oriented X3, Cooperative, mild distress Abdomen: Normal bowel sounds, Soft, No tenderness, No hepatosplenomegaly, No masses Extremities: No clubbing, No cyanosis, No edema, Normal pulses, Other (left hip pain on external and internal rotation, pain on straight leg raise on left) Skin: Other (bilateral knee abrasions) Comment Review of Relevant I have reviewed the following items robb (where applicable) has been applied. Justifications for Admission Other Justification LAURA AMAYA MD May 25, 2021 16:33
[2021-05-25 19:00] VITALS: BP 141/66
[2021-05-25] MEDS: PSYLLIUM HUSK (SUGAR FREE) 1 PKT PACKET PO SCH (20:59)
[2021-05-25 23:00] VITALS: BP 141/66
[2021-05-26 03:23] VITALS: BP 130/64
[2021-05-26] MEDS: HEPARIN for SUB-Q USE 5,000 UNIT/ML VIAL. SQ SCH ×3 (06:35→22:24)
[2021-05-26] MEDS: IV NORMAL SALINE 1000ML BAG 1,000 ML IV SCH (06:40)
[2021-05-26 07:00] VITALS: BP 172/72
[2021-05-26] MEDS: IPRATROPIUM/ALBUTEROL 20/100mcg/INH INHALER. INH SCH ×4 (08:00→22:25)
[2021-05-26] MEDS: DEXAMETHASONE SOD PHOS 4 MG/ML VIAL IVP SCH (08:53)
[2021-05-26] MEDS: ASCORBIC ACID 500 MG TABLET PO SCH (08:53)
[2021-05-26] MEDS: THIAMINE 100 MG TABLET. PO SCH (08:53)
[2021-05-26] MEDS: LACTOBACILLUS RHAMNOSUS GG 1 CAPSULE. PO SCH ×2 (08:53→22:23)
[2021-05-26] MEDS: DOXYCYCLINE HYCLATE 100 MG TABLET PO SCH ×2 (08:53→22:23)
[2021-05-26] MEDS: ZINC SULFATE 220 MG CAPSULE. PO SCH (08:53)
--- NOTE | 2021-05-26 08:59 | PDOC ---
PROGRESS NOTES Date of Service DATE: 05/26/21 TIME: 08:56 Subjective Subjective No new complaints. Objective Objective Vital Signs Date Time Temp Pulse Resp B/P (MAP) Pulse Ox O2 Delivery O2 Flow Rate FiO2 05/26/21 03:23 97.5 72 20 130/64 (86) 99 NonRebreather Mask 10.0 97.5 Intake and Output 05/26/21 07:00 Intake Total 1440 ml Output Total 650 ml Balance 790 ml Intake Oral 440 ml IV Total 1000 ml Output Urine Total 650 ml # Voids 3 # Bowel Movements 1 Physical Exam Physical Exam She is alert,supine in bed and using oxygen by nasal mask and she denies any significant left hip area pain while supine but physical therapy reports of her requiring maximal assistance with mobility. Plan Plan of Care To continue present care efforts as tolerated. Comment Review of Relevant I have reviewed the following items robb (where applicable) has been applied. Labs Laboratory Tests Test 05/26/21 08:18 Glucose (Fingerstick) 232 mg/dL (70-99) Laboratory Tests Test 05/26/21 08:18 Glucose (Fingerstick) 232 mg/dL (70-99) Microbiology 05/21/21 Blood Culture - Preliminary, Resulted NO GROWTH AFTER 4 DAYS 05/19/21 Urine Culture - Final, Complete Medications Current Medications Acetaminophen/ Hydrocodone Bitart (Lortab 5/325) 1 tab 1X ONCE PO ; Start 05/19/21 at 13:00; Stop 05/19/21 at 13:01; Status DC Naproxen (Naprosyn) 500 mg 1X ONCE PO Last administered on 05/19/21at 13:30; Start 05/19/21 at 13:30; Stop 05/19/21 at 13:31; Status DC Ondansetron HCl (Zofran) 4 mg PRN Q4HRS PRN IVP NAUSEA/VOMITING; Start 05/19/21 at 16:30 Acetaminophen (Tylenol) 650 mg PRN Q6HRS PRN PO MILD PAIN / TEMP > 100.3'F Last administered on 05/21/21at 03:27; Start 05/19/21 at 16:30 Psyllium Hydrophilic Mucilloid (Metamucil Fiber Packet) 1 pkt QHS PO Last administered on 05/25/21at 20:59; Start 05/19/21 at 21:00 Sodium Chloride 1,000 ml @ 75 mls/hr [id number] IV Last administered on 05/20/21at 05:52; Start 05/19/21 at 17:15; Stop 05/20/21 at 17:14; Status DC Hydralazine HCl (Apresoline Inj) 10 mg PRN Q4HRS PRN IVP ELEVATED BP, SEE COMMENTS; Start 05/20/21 at 01:15 Tramadol HCl (Ultram) 50 mg PRN Q6HRS PRN PO PAIN MOD/SEVERE; Start 05/20/21 at 01:15 Guaifenesin (Robitussin Dm) 10 ml PRN Q6HRS PRN PO COUGH; Start 05/20/21 at 01:15 Albuterol/ Ipratropium (Duoneb) 3 ml RTQID NEB Last administered on 05/21/21at 11:26; Start 05/20/21 at 08:00; Stop 05/21/21 at 22:49; Status DC Albuterol Sulfate (Ventolin Neb Soln) 2.5 mg PRN Q4HRS PRN NEB SHORTNESS OF BREATH; Start 05/20/21 at 01:15 Budesonide (Pulmicort) 0.5 mg RTBID NEB Last administered on 05/21/21at 07:54; Start 05/20/21 at 08:00; Stop 05/21/21 at 22:49; Status DC Heparin Sodium (Porcine) (Heparin Sodium) 5,000 unit Q8HRS SQ Last administered on 05/26/21at 06:35; Start 05/20/21 at 06:00 Bupivacaine HCl (Sensorcaine-Mpf 0.25%) 10 ml 1X ONCE IJ ; Start 05/20/21 at 10:15; Stop 05/20/21 at 10:20; Status DC Lidocaine HCl (Lidocaine 1% 20ml Vial) 20 ml 1X ONCE INJ ; Start 05/20/21 at 10:15; Stop 05/20/21 at 10:20; Status DC Iohexol (Omnipaque 300 Mg/ml) 50 ml 1X ONCE IJ ; Start 05/20/21 at 10:15; Stop 05/20/21 at 10:20; Status DC Info (CONTRAST GIVEN -- Rx MONITORING) 1 each PRN DAILY PRN MC SEE COMMENTS; Start 05/20/21 at 10:30; Stop 05/22/21 at 10:29; Status DC Methylprednisolone Acetate (DEPO-Medrol 40MG VIAL) 40 mg STK-MED ONCE .ROUTE ; Start 05/20/21 at 12:33; Stop 05/20/21 at 12:33; Status DC Bupivacaine HCl (Sensorcaine Mpf 0.5%) 10 ml STK-MED ONCE .ROUTE ; Start 05/20/21 at 12:38; Stop 05/20/21 at 12:38; Status DC Ceftriaxone Sodium (Rocephin) 1 gm Q24H IVP Last administered on 05/25/21at 13:25; Start 05/21/21 at 13:00 Doxycycline Hyclate (Vibra-Tab) 100 mg BID PO Last administered on 05/26/21at 08:53; Start 05/21/21 at 13:00 Remdesivir 200 mg/ Sodium Chloride 210 ml @ 210 mls/hr 1X ONCE IV Last administered on 05/21/21at 17:10; Start 05/21/21 at 15:00; Stop 05/21/21 at 15:59; Status DC Remdesivir 100 mg/ Sodium Chloride 230 ml @ 460 mls/hr Q24H IV Last administered on 05/25/21at 13:25; Start 05/22/21 at 14:00; Stop 05/25/21 at 14:29; Status DC Dexamethasone Sodium Phosphate (Decadron) 6 mg DAILY IVP Last administered on 05/26/21at 08:53; Start 05/21/21 at 14:00; Stop 05/30/21 at 09:01 Zinc Sulfate (Orazinc) 220 mg DAILY PO Last administered on 05/26/21at 08:53; Start 05/22/21 at 09:00 Thiamine Mononitrate (Vitamin B-1) 100 mg DAILY PO Last administered on 05/26/21at 08:53; Start 05/22/21 at 09:00 Ascorbic Acid (Vitamin C) 500 mg DAILY PO Last administered on 05/26/21at 08:53; Start 05/22/21 at 09:00 Fluticasone Furoate (ARNUITY 100mcg ELLIPTA) 1 puff DAILY INH Last administered on 05/25/21at 09:00; Start 05/22/21 at 09:00 Albuterol/ Ipratropium (Combivent Respimat 20-100 Mcg) 1 puff RTQID INH Last administered on 05/25/21at 20:59; Start 05/22/21 at 08:00 Sodium Chloride 1,000 ml @ 100 mls/hr Q10H IV Last administered on 05/26/21at 06:40; Start 05/22/21 at 14:45 Lactobacillus Rhamnosus (Culturelle) 1 cap BID PO Last administered on 05/26/21at 08:53; Start 05/23/21 at 21:00 Active Scripts Active Reported Dulera 200 Mcg/5 Mcg Inhaler (Mometasone/Formoterol) 13 Gm Hfa.aer.ad 2 Puff INH BID Irbesartan-Hctz 150-12.5 Mg Tb (Irbesartan/Hydrochlorothiazide) 1 Each Tablet 1 Tab PO DAILY Naproxen 500 Mg Tablet 1 Tab PO BID Vitals/I & O Vital Sign - Last 24 Hours 05/25/21 05/25/21 05/25/21 05/25/21 11:00 15:00 19:00 20:00 Temp 98.5 98.4 98.0 98.5 98.4 98.0 Pulse 87 86 75 Resp 18 18 18 B/P (MAP) 150/78 (102) 158/68 (98) 141/66 (91) Pulse Ox 92 92 93 O2 Delivery High Flow Nasal Cannula NonRebreather Mask NonRebreather Mask Non- Rebreather O2 Flow Rate 15.0 10.0 10.0 12.0 05/25/21 05/26/21 23:00 03:23 Temp 98.0 97.5 98.0 97.5 Pulse 75 72 Resp 18 20 B/P (MAP) 141/66 (91) 130/64 (86) Pulse Ox 93 99 O2 Delivery NonRebreather Mask O2 Flow Rate 10.0 Intake and Output 05/25/21 05/25/21 05/26/21 15:00 23:00 07:00 Intake Total 200 ml 1240 ml 0 ml Output Total 650 ml Balance 200 ml 1240 ml -650 ml Justifications for Admission Other Justification NUSRAT CHARLES MD May 26, 2021 08:59
[2021-05-26] MEDS: FLUTICASONE FUROATE 100mcg/INH ELLIPTA INHALER. INH SCH (09:00)
[2021-05-26 11:00] VITALS: BP 140/100
[2021-05-26 12:05] LABS: BASO # 0.1 x10^3/uL (0.0-0.2); BASO % 1 % (0-3); EOS % 0 % (0-3); HEMATOCRIT 32.2 % (36.0-47.0); LYMPH # 0.9 x10^3/uL (1.0-4.8); LYMPH % 8 % (24-48); MEAN CORPUSCULAR HEMOGLOBIN 29 pg (25-35); MEAN CORPUSCULAR HGB CONC 31 g/dL (31-37); MEAN CORPUSCULAR VOLUME 94 fL (79-100); MONO % 8 % (0-9); NEUT # 10.3 x10^3/uL (1.8-7.7); NEUT % 83 % (31-73); PLATELET COUNT 327 x10^3/uL (140-400); RED BLOOD COUNT 3.44 x10^6/uL (3.50-5.40); RED CELL DISTRIBUTION WIDTH 15.3 % (11.5-14.5); WHITE BLOOD COUNT 12.3 x10^3/uL (4.0-11.0)
[2021-05-26 12:21] LABS: ALBUMIN 2.4 g/dL (3.4-5.0); ALBUMIN/GLOBULIN RATIO 0.6 (1.0-1.7); CALCIUM 9.2 mg/dL (8.5-10.1); CREATININE 1.2 mg/dL (0.6-1.0); GFR 53.3; MAGNESIUM 2.3 mg/dL (1.8-2.4); POTASSIUM 4.8 mmol/L (3.5-5.1); TOTAL BILIRUBIN 0.3 mg/dL (0.2-1.0); TOTAL PROTEIN 6.2 g/dL (6.4-8.2)
[2021-05-26] MEDS: cefTRIAXone IV Push 1 GM VIAL. IVP SCH (12:22)
[2021-05-26 12:36] LABS: % BANDS 3 % (0-9); % LYMPHS 6 % (24-48); % MONOS 3 % (0-10); % SEGS 88 % (35-66); PLT ESTIMATE ADEQUATE (ADEQUATE)
--- NOTE | 2021-05-26 13:23 | NUR ---
Dr Jimenez ordered a depo-medrol injection to the L hip. Face to face with Dr Jimenez and verbally ordered 80mg depo-medrol with 4ml of marcaine.
[2021-05-26] MEDS ORDERED: methylPREDNISolone ACETATE 80 MG/ML VIAL. ONE (13:32)
[2021-05-26] MEDS ORDERED: IOHEXOL 300 MG/ML 50 ML VIAL. ONE (13:33)
[2021-05-26] MEDS ORDERED: BUPIVACAINE MPF 0.5% 10 ML VIAL. ONE (13:33)
[2021-05-26] MEDS ORDERED: LIDOCAINE 1% Multi-Dose 20 ML VIAL. ONE (13:34)
[2021-05-26] MEDS ORDERED: BUPIVACAINE MPF 0.5% 10 ML VIAL. IJ ONE (13:45)
--- NOTE | 2021-05-26 13:48 | PDOC ---
[facility] PROGRESS NOTE Date of Service DOS: DATE: 05/26/21 TIME: 13:47 Chief Complaint Chief Complaint A/P: Intractable left hip pain - severe OA noted. With weakness after fall r/o occult fracture via MRI, will d/w ortho and PMR physicians Left leg weakness - no other neuro deficits, weakness is due to pain. Ortho and PMR consulted Unable to walk - due to left leg weakness, fall Anemia - will check iron JOSE - likely vasomotor nephropathy, will hold ARB/HCTZ, monitor renal function Transaminitis - as with JOSE may be rhabdo related Fall at home - with localized bruising. PT for gait training and assessment for safety Elevated troponin - possibly related to rhabdo. Will trend. Consult cardiology COPD - on home O2. Having asthmatic bronchitis, will cont dulera prn. Given her fever will start empiric rocephin and doxycycline and obtain influenza and COVID 19 swabs Chronic hypoxic respiratory failure - possibly acutely worsening, Will monitor pulse ox checks HTN - hold ARB/HCTZ. May start amlodipine if BP increases Bilateral knee abrasions - local wound care COVID 19 - addendum: Rapid covid 19 positive. Decadron, remdesivir, transfer to covid unit FEN - Regular diet PPX - heparin FULL CODE Dispo - inpatient History of Present Illness History of Present Illness Ms Kwan is a 71yo female with PMHx COPD on home O2, HTN, morbid obesity and osteoarthritis who comes to ED accompanied by her son for progressive weakness and left hip pain after a fall. She fell trying to get out of bed to go to the bathroom, slid off the bed and didn't make it to the bathroom, could not stand due to left leg weakness. She called EMS to get up. She has had left leg weakness for the past 2 days prior to arrival and has been mostly in bed. 2 days prior to presentation fell on the way to the bathroom and had both knees splay outward, has some abrasions on bilateral knees. Since then she has had pain and weakness in her left hip, can't bear weight on it. She notes previously she was seen outpatient for severe left hip OA and had excellent improvement for over a year with corticosteroid injection. Pelvis with no acute fracture or dislocation of the pelvis and left hip. Severe degenerative osteoarthritis of the left hip is redemonstrated. Knee radiographs with no acute fracture or dislocation of bilateral knees. left tib-fib radiograph with no acute fracture or dislocation of the left tibia- fibula. Labs with Troponin, 676, BNP 428. Cr 1.5, AST 68, Cr 3 EKG sinus rhythm with significant baseline artifact and prolonged QT 05/20: Troponin decreased. CK elevated creatinine LFTs unchanged. Still significant pain and some weakness left hip. Able to ambulate with physical therapy needs significant assistance, unable to move further than from bed to chair without complete assistance. MRI pelvis ordered. D/w radiology and ortho 05/21: Febrile to 101.6 F overnight. She still notes no worsening shortness of breath cough or upper airway symptoms. She has been taking her home O2 off and 0.102 desaturates to 84% left hip pain is a little better. MRI reviewed there is some motion degradation no occult fracture detected but with severe osteoarthrosis of left hip noted. Addendum: COVID 19 rapid positive 05/23 Patient evaluated examined at bedside. Resting in bed still requiring significant amount of supplemental O2. Needs hip injection per PMR team will wait till oxygen status little more stable before requesting this through interventional radiology. Otherwise continue COVID treatment. Plan of care discussed with bedside RN. 05/24 Patient eval and examind at bedside. Still on high O2 requirements, wean as tolerated. Continue covid treatment. Plan discussed with bedside RN. 05/25 Patient evaluated examined at bedside. Still too much oxygen. Wean as tolerated. Otherwise continue current. Too much oxygen for injection still. 05/26 Patient seen and examined at bedside. Still on pretty high oxygen but we will go ahead and try for hip injection today. Continue current COVID treatment otherwise. Vitals/I&O Vitals/I&O: Vital Signs Date Time Temp Pulse Resp B/P (MAP) Pulse Ox O2 Delivery O2 Flow Rate FiO2 05/26/21 11:00 97.9 74 20 140/100 (113) 93 NonRebreather Mask 10.0 97.9 I & O 05/25/21 05/25/21 05/26/21 15:00 23:00 07:00 Intake Total 200 ml 1240 ml 0 ml Output Total 650 ml Balance 200 ml 1240 ml -650 ml Physical Exam General: Alert, Oriented X3, Cooperative, mild distress Heart: Regular rate Lungs: Clear Abdomen: Normal bowel sounds, Soft, No tenderness, No hepatosplenomegaly, No masses Extremities: No clubbing, No cyanosis, No edema, Normal pulses, Other (left hip pain on external and internal rotation, pain on straight leg raise on left) Skin: Other (bilateral knee abrasions) Labs Labs: Laboratory Tests Test 05/26/21 08:18 05/26/21 11:25 05/26/21 11:50 Glucose (Fingerstick) 232 mg/dL (70-99) Sodium Level 149 mmol/L (136-145) Potassium Level 4.8 mmol/L (3.5-5.1) Chloride Level 110 mmol/L (98-107) Carbon Dioxide Level 35 mmol/L (21-32) Anion Gap 4 (6-14) Blood Urea Nitrogen 50 mg/dL (7-20) Creatinine 1.2 mg/dL (0.6-1.0) Estimated GFR (Cockcroft-Gault) 53.3 BUN/Creatinine Ratio 42 (6-20) Glucose Level 107 mg/dL (70-99) Calcium Level 9.2 mg/dL (8.5-10.1) Magnesium Level 2.3 mg/dL (1.8-2.4) Total Bilirubin 0.3 mg/dL (0.2-1.0) Aspartate Amino Transf (AST/SGOT) 25 U/L (15-37) Alanine Aminotransferase (ALT/SGPT) 19 U/L (14-59) Alkaline Phosphatase 36 U/L (46-116) Total Protein 6.2 g/dL (6.4-8.2) Albumin 2.4 g/dL (3.4-5.0) Albumin/Globulin Ratio 0.6 (1.0-1.7) White Blood Count 12.3 x10^3/uL (4.0-11.0) Red Blood Count 3.44 x10^6/uL (3.50-5.40) Hemoglobin 10.0 g/dL (12.0-15.5) Hematocrit 32.2 % (36.0-47.0) Mean Corpuscular Volume 94 fL (79-100) Mean Corpuscular Hemoglobin 29 pg (25-35) Mean Corpuscular Hemoglobin Concent 31 g/dL (31-37) Red Cell Distribution Width 15.3 % (11.5-14.5) Platelet Count 327 x10^3/uL (140-400) Neutrophils (%) (Auto) 83 % (31-73) Lymphocytes (%) (Auto) 8 % (24-48) Monocytes (%) (Auto) 8 % (0-9) Eosinophils (%) (Auto) 0 % (0-3) Basophils (%) (Auto) 1 % (0-3) Neutrophils # (Auto) 10.3 x10^3/uL (1.8-7.7) Lymphocytes # (Auto) 0.9 x10^3/uL (1.0-4.8) Monocytes # (Auto) 1.0 x10^3/uL (0.0-1.1) Eosinophils # (Auto) 0.0 x10^3/uL (0.0-0.7) Basophils # (Auto) 0.1 x10^3/uL (0.0-0.2) Segmented Neutrophils % 88 % (35-66) Band Neutrophils % 3 % (0-9) Lymphocytes % 6 % (24-48) Monocytes % 3 % (0-10) Platelet Estimate Adequate (ADEQUATE) Comment Review of Relevant I have reviewed the following items robb (where applicable) has been applied. Justifications for Admission Other Justification LAURA AMAYA MD May 26, 2021 13:48
[2021-05-26 15:00] VITALS: BP 166/74
[2021-05-26] MEDS: IV 1/2 NORMAL SALINE 1,000 ML IV SCH (17:17)
[2021-05-26 19:00] VITALS: BP 153/70
[2021-05-26] MEDS: PSYLLIUM HUSK (SUGAR FREE) 1 PKT PACKET PO SCH (22:23)
[2021-05-26 23:52] VITALS: BP 159/72
[2021-05-27 03:32] VITALS: BP 165/76
[2021-05-27] MEDS: IV 1/2 NORMAL SALINE 1,000 ML IV SCH ×2 (04:44→22:06)
[2021-05-27] MEDS: HEPARIN for SUB-Q USE 5,000 UNIT/ML VIAL. SQ SCH ×3 (05:42→21:29)
[2021-05-27 07:00] VITALS: BP 139/65
[2021-05-27] MEDS: FLUTICASONE FUROATE 100mcg/INH ELLIPTA INHALER. INH SCH (09:07)
[2021-05-27] MEDS: DOXYCYCLINE HYCLATE 100 MG TABLET PO SCH ×2 (09:07→21:28)
[2021-05-27] MEDS: IPRATROPIUM/ALBUTEROL 20/100mcg/INH INHALER. INH SCH ×4 (09:07→22:04)
[2021-05-27] MEDS: DEXAMETHASONE SOD PHOS 4 MG/ML VIAL IVP SCH (09:07)
[2021-05-27] MEDS: LACTOBACILLUS RHAMNOSUS GG 1 CAPSULE. PO SCH ×2 (09:07→21:28)
[2021-05-27] MEDS: ZINC SULFATE 220 MG CAPSULE. PO SCH (09:07)
[2021-05-27] MEDS: THIAMINE 100 MG TABLET. PO SCH (09:07)
[2021-05-27] MEDS: ASCORBIC ACID 500 MG TABLET PO SCH (09:07)
[2021-05-27] MEDS: guaiFENesin DM 200MG/20MG 10 ML SYRUP PO PRN (09:09)
--- NOTE | 2021-05-27 09:12 | PDOC ---
PROGRESS NOTES Date of Service DATE: 05/27/21 TIME: 09:08 Subjective Subjective No new complaints. Objective Objective Vital Signs Date Time Temp Pulse Resp B/P (MAP) Pulse Ox O2 Delivery O2 Flow Rate FiO2 05/27/21 07:00 97.7 68 18 139/65 (89) 100 NonRebreather Mask 15.0 97.7 Intake and Output 05/27/21 07:00 Output Total 1700 ml Balance -1700 ml Output Urine Total 1700 ml Physical Exam Physical Exam She is resting supine in bed with oxygen by nasal mask and she continues to require maximal assistance with bed mobility and moderate assistance with transfers as per physical therapy. Plan Plan of Care To continue present care efforts as tolerated. Comment Review of Relevant I have reviewed the following items robb (where applicable) has been applied. Labs Laboratory Tests Test 05/26/21 08:18 05/26/21 11:25 05/26/21 11:50 Glucose (Fingerstick) 232 mg/dL (70-99) Sodium Level 149 mmol/L (136-145) Potassium Level 4.8 mmol/L (3.5-5.1) Chloride Level 110 mmol/L (98-107) Carbon Dioxide Level 35 mmol/L (21-32) Anion Gap 4 (6-14) Blood Urea Nitrogen 50 mg/dL (7-20) Creatinine 1.2 mg/dL (0.6-1.0) Estimated GFR (Cockcroft-Gault) 53.3 BUN/Creatinine Ratio 42 (6-20) Glucose Level 107 mg/dL (70-99) Calcium Level 9.2 mg/dL (8.5-10.1) Magnesium Level 2.3 mg/dL (1.8-2.4) Total Bilirubin 0.3 mg/dL (0.2-1.0) Aspartate Amino Transf (AST/SGOT) 25 U/L (15-37) Alanine Aminotransferase (ALT/SGPT) 19 U/L (14-59) Alkaline Phosphatase 36 U/L (46-116) Total Protein 6.2 g/dL (6.4-8.2) Albumin 2.4 g/dL (3.4-5.0) Albumin/Globulin Ratio 0.6 (1.0-1.7) White Blood Count 12.3 x10^3/uL (4.0-11.0) Red Blood Count 3.44 x10^6/uL (3.50-5.40) Hemoglobin 10.0 g/dL (12.0-15.5) Hematocrit 32.2 % (36.0-47.0) Mean Corpuscular Volume 94 fL (79-100) Mean Corpuscular Hemoglobin 29 pg (25-35) Mean Corpuscular Hemoglobin Concent 31 g/dL (31-37) Red Cell Distribution Width 15.3 % (11.5-14.5) Platelet Count 327 x10^3/uL (140-400) Neutrophils (%) (Auto) 83 % (31-73) Lymphocytes (%) (Auto) 8 % (24-48) Monocytes (%) (Auto) 8 % (0-9) Eosinophils (%) (Auto) 0 % (0-3) Basophils (%) (Auto) 1 % (0-3) Neutrophils # (Auto) 10.3 x10^3/uL (1.8-7.7) Lymphocytes # (Auto) 0.9 x10^3/uL (1.0-4.8) Monocytes # (Auto) 1.0 x10^3/uL (0.0-1.1) Eosinophils # (Auto) 0.0 x10^3/uL (0.0-0.7) Basophils # (Auto) 0.1 x10^3/uL (0.0-0.2) Segmented Neutrophils % 88 % (35-66) Band Neutrophils % 3 % (0-9) Lymphocytes % 6 % (24-48) Monocytes % 3 % (0-10) Platelet Estimate Adequate (ADEQUATE) Laboratory Tests Test 05/26/21 11:25 05/26/21 11:50 Sodium Level 149 mmol/L (136-145) Potassium Level 4.8 mmol/L (3.5-5.1) Chloride Level 110 mmol/L (98-107) Carbon Dioxide Level 35 mmol/L (21-32) Anion Gap 4 (6-14) Blood Urea Nitrogen 50 mg/dL (7-20) Creatinine 1.2 mg/dL (0.6-1.0) Estimated GFR (Cockcroft-Gault) 53.3 BUN/Creatinine Ratio 42 (6-20) Glucose Level 107 mg/dL (70-99) Calcium Level 9.2 mg/dL (8.5-10.1) Magnesium Level 2.3 mg/dL (1.8-2.4) Total Bilirubin 0.3 mg/dL (0.2-1.0) Aspartate Amino Transf (AST/SGOT) 25 U/L (15-37) Alanine Aminotransferase (ALT/SGPT) 19 U/L (14-59) Alkaline Phosphatase 36 U/L (46-116) Total Protein 6.2 g/dL (6.4-8.2) Albumin 2.4 g/dL (3.4-5.0) Albumin/Globulin Ratio 0.6 (1.0-1.7) White Blood Count 12.3 x10^3/uL (4.0-11.0) Red Blood Count 3.44 x10^6/uL (3.50-5.40) Hemoglobin 10.0 g/dL (12.0-15.5) Hematocrit 32.2 % (36.0-47.0) Mean Corpuscular Volume 94 fL (79-100) Mean Corpuscular Hemoglobin 29 pg (25-35) Mean Corpuscular Hemoglobin Concent 31 g/dL (31-37) Red Cell Distribution Width 15.3 % (11.5-14.5) Platelet Count 327 x10^3/uL (140-400) Neutrophils (%) (Auto) 83 % (31-73) Lymphocytes (%) (Auto) 8 % (24-48) Monocytes (%) (Auto) 8 % (0-9) Eosinophils (%) (Auto) 0 % (0-3) Basophils (%) (Auto) 1 % (0-3) Neutrophils # (Auto) 10.3 x10^3/uL (1.8-7.7) Lymphocytes # (Auto) 0.9 x10^3/uL (1.0-4.8) Monocytes # (Auto) 1.0 x10^3/uL (0.0-1.1) Eosinophils # (Auto) 0.0 x10^3/uL (0.0-0.7) Basophils # (Auto) 0.1 x10^3/uL (0.0-0.2) Segmented Neutrophils % 88 % (35-66) Band Neutrophils % 3 % (0-9) Lymphocytes % 6 % (24-48) Monocytes % 3 % (0-10) Platelet Estimate Adequate (ADEQUATE) Microbiology 05/21/21 Blood Culture - Final, Complete NO GROWTH AFTER 5 DAYS 05/19/21 Urine Culture - Final, Complete Medications Current Medications Acetaminophen/ Hydrocodone Bitart (Lortab 5/325) 1 tab 1X ONCE PO ; Start 05/19/21 at 13:00; Stop 05/19/21 at 13:01; Status DC Naproxen (Naprosyn) 500 mg 1X ONCE PO Last administered on 05/19/21at 13:30; Start 05/19/21 at 13:30; Stop 05/19/21 at 13:31; Status DC Ondansetron HCl (Zofran) 4 mg PRN Q4HRS PRN IVP NAUSEA/VOMITING; Start 05/19/21 at 16:30 Acetaminophen (Tylenol) 650 mg PRN Q6HRS PRN PO MILD PAIN / TEMP > 100.3'F Last administered on 05/21/21at 03:27; Start 05/19/21 at 16:30 Psyllium Hydrophilic Mucilloid (Metamucil Fiber Packet) 1 pkt QHS PO Last administered on 05/26/21at 22:23; Start 05/19/21 at 21:00 Sodium Chloride 1,000 ml @ 75 mls/hr [id number] IV Last administered on 05/20/21at 05:52; Start 05/19/21 at 17:15; Stop 05/20/21 at 17:14; Status DC Hydralazine HCl (Apresoline Inj) 10 mg PRN Q4HRS PRN IVP ELEVATED BP, SEE COMMENTS; Start 05/20/21 at 01:15 Tramadol HCl (Ultram) 50 mg PRN Q6HRS PRN PO PAIN MOD/SEVERE; Start 05/20/21 at 01:15 Guaifenesin (Robitussin Dm) 10 ml PRN Q6HRS PRN PO COUGH; Start 05/20/21 at 01:15 Albuterol/ Ipratropium (Duoneb) 3 ml RTQID NEB Last administered on 05/21/21at 11:26; Start 05/20/21 at 08:00; Stop 05/21/21 at 22:49; Status DC Albuterol Sulfate (Ventolin Neb Soln) 2.5 mg PRN Q4HRS PRN NEB SHORTNESS OF BREATH; Start 05/20/21 at 01:15 Budesonide (Pulmicort) 0.5 mg RTBID NEB Last administered on 05/21/21at 07:54; Start 05/20/21 at 08:00; Stop 05/21/21 at 22:49; Status DC Heparin Sodium (Porcine) (Heparin Sodium) 5,000 unit Q8HRS SQ Last administered on 05/27/21at 05:42; Start 05/20/21 at 06:00 Bupivacaine HCl (Sensorcaine-Mpf 0.25%) 10 ml 1X ONCE IJ ; Start 05/20/21 at 10:15; Stop 05/20/21 at 10:20; Status DC Lidocaine HCl (Lidocaine 1% 20ml Vial) 20 ml 1X ONCE INJ ; Start 05/20/21 at 10:15; Stop 05/20/21 at 10:20; Status DC Iohexol (Omnipaque 300 Mg/ml) 50 ml 1X ONCE IJ ; Start 05/20/21 at 10:15; Stop 05/20/21 at 10:20; Status DC Info (CONTRAST GIVEN -- Rx MONITORING) 1 each PRN DAILY PRN MC SEE COMMENTS; Start 05/20/21 at 10:30; Stop 05/22/21 at 10:29; Status DC Methylprednisolone Acetate (DEPO-Medrol 40MG VIAL) 40 mg STK-MED ONCE .ROUTE ; Start 05/20/21 at 12:33; Stop 05/20/21 at 12:33; Status DC Bupivacaine HCl (Sensorcaine Mpf 0.5%) 10 ml STK-MED ONCE .ROUTE ; Start 05/20/21 at 12:38; Stop 05/20/21 at 12:38; Status DC Ceftriaxone Sodium (Rocephin) 1 gm Q24H IVP Last administered on 05/26/21at 12:22; Start 05/21/21 at 13:00 Doxycycline Hyclate (Vibra-Tab) 100 mg BID PO Last administered on 05/26/21at 22:23; Start 05/21/21 at 13:00 Remdesivir 200 mg/ Sodium Chloride 210 ml @ 210 mls/hr 1X ONCE IV Last administered on 05/21/21at 17:10; Start 05/21/21 at 15:00; Stop 05/21/21 at 15:59; Status DC Remdesivir 100 mg/ Sodium Chloride 230 ml @ 460 mls/hr Q24H IV Last admi nistered on 05/25/21at 13:25; Start 05/22/21 at 14:00; Stop 05/25/21 at 14:29; Status DC Dexamethasone Sodium Phosphate (Decadron) 6 mg DAILY IVP Last administered on 05/26/21at 08:53; Start 05/21/21 at 14:00; Stop 05/30/21 at 09:01 Zinc Sulfate (Orazinc) 220 mg DAILY PO Last administered on 05/26/21at 08:53; Start 05/22/21 at 09:00 Thiamine Mononitrate (Vitamin B-1) 100 mg DAILY PO Last administered on 05/26/21at 08:53; Start 05/22/21 at 09:00 Ascorbic Acid (Vitamin C) 500 mg DAILY PO Last administered on 05/26/21at 08:53; Start 05/22/21 at 09:00 Fluticasone Furoate (ARNUITY 100mcg ELLIPTA) 1 puff DAILY INH Last administered on 05/26/21at 09:00; Start 05/22/21 at 09:00 Albuterol/ Ipratropium (Combivent Respimat 20-100 Mcg) 1 puff RTQID INH Last administered on 05/26/21at 22:25; Start 05/22/21 at 08:00 Sodium Chloride 1,000 ml @ 100 mls/hr Q10H IV Last administered on 05/26/21at 06:40; Start 05/22/21 at 14:45; Stop 05/26/21 at 14:02; Status DC Lactobacillus Rhamnosus (Culturelle) 1 cap BID PO Last administered on 05/26/21at 22:23; Start 05/23/21 at 21:00 Methylprednisolone Acetate (DEPO-Medrol 80MG VIAL) 80 mg STK-MED ONCE .ROUTE ; Start 05/26/21 at 13:32; Stop 05/26/21 at 13:33; Status DC Iohexol (Omnipaque 300 Mg/ml) 50 ml STK-MED ONCE .ROUTE ; Start 05/26/21 at 13:33; Stop 05/26/21 at 13:33; Status DC Bupivacaine HCl (Sensorcaine Mpf 0.5%) 10 ml STK-MED ONCE .ROUTE ; Start 05/26/21 at 13:33; Stop 05/26/21 at 13:33; Status DC Lidocaine HCl (Lidocaine 1% 20ml Vial) 20 ml STK-MED ONCE .ROUTE ; Start 05/26/21 at 13:34; Stop 05/26/21 at 13:34; Status DC Bupivacaine HCl (Sensorcaine Mpf 0.5%) 10 ml 1X ONCE IJ ; Start 05/26/21 at 13:45; Stop 05/26/21 at 13:46; Status DC Sodium Chloride 1,000 ml @ 75 mls/hr [id number] IV Last administered on 05/27/21at 04:44; Start 05/26/21 at 14:15 Active Scripts Active Reported Dulera 200 Mcg/5 Mcg Inhaler (Mometasone/Formoterol) 13 Gm Hfa.aer.ad 2 Puff INH BID Irbesartan-Hctz 150-12.5 Mg Tb (Irbesartan/Hydrochlorothiazide) 1 Each Tablet 1 Tab PO DAILY Naproxen 500 Mg Tablet 1 Tab PO BID Vitals/I & O Vital Sign - Last 24 Hours 05/26/21 05/26/21 05/26/21 05/26/21 11:00 15:00 19:00 20:00 Temp 97.9 98.6 97.3 97.9 98.6 97.3 Pulse 74 77 82 Resp 20 24 20 B/P (MAP) 140/100 (113) 166/74 (104) 153/70 (97) Pulse Ox 93 98 93 O2 Delivery NonRebreather Mask NonRebreather Mask Nasal Cannula Non-Rebreather O2 Flow Rate 10.0 10.0 10.0 10.0 05/26/21 05/27/21 05/27/21 23:52 03:32 07:00 Temp 97.5 98.6 97.7 97.5 98.6 97.7 Pulse 73 74 68 Resp 19 18 18 B/P (MAP) 159/72 (101) 165/76 (105) 139/65 (89) Pulse Ox 93 99 100 O2 Delivery Nasal Cannula NonRebreather Mask NonRebreather Mask O2 Flow Rate 10.0 10.0 15.0 Intake and Output 05/26/21 05/26/21 05/27/21 15:00 23:00 07:00 Output Total 1700 ml Balance -1700 ml Justifications for Admission Other Justification NUSRAT CHARLES MD May 27, 2021 09:12
[2021-05-27 11:00] VITALS: BP 162/75
--- NOTE | 2021-05-27 12:26 | CONS ---
DATE OF CONSULTATION: 05/27/2021 PULMONARY CONSULTATION ATTENDING PHYSICIAN: Bernardo Nicholas MD. REASON FOR CONSULTATION: Respiratory failure, COVID-19 viral pneumonia. HISTORY OF PRESENT ILLNESS: The patient is a 71-year-old morbidly obese female with a BMI of 45.9. She has history of severe osteoarthritis. She came in with weakness after a fall. She has been seen by Ortho. I have been asked to see her for further evaluation of her hypoxic respiratory failure. The patient has oxygen requirement, which has slowly increased. She has been fluctuating between 10-15 liters, she was initially on 5 liters, currently requiring 15 liters oxygen via nonrebreather mask. She does not appear to be in any obvious respiratory distress. Her chest x-ray from 05/19 was reviewed and it showed bilateral faint interstitial infiltrates. Review of chemistries also revealed chronic elevation of bicarbonate suggesting that she has chronic hypercapnia. I have been asked to see her for further evaluation. She denies any chest pain. She has a mild cough. No nausea, vomiting or diarrhea. PAST MEDICAL HISTORY: Significant for COPD. She is on home oxygen. Morbid obesity. Severe osteoarthritis. Her other medical history also includes suspected SWEETIE. PAST SURGICAL HISTORY: No recent surgery. FAMILY HISTORY: Dyslipidemia and hypertension. SOCIAL HISTORY: No longer smokes cigarettes. ALLERGIES: None. CURRENT MEDICATIONS: Reviewed as listed in the MRAD including dexamethasone and Rocephin. REVIEW OF SYSTEMS: A 10-point system obtained. Pertinent positives discussed in my present illness, otherwise noncontributory. All systems that were negative were reviewed as well. PHYSICAL EXAMINATION: VITAL SIGNS: Reviewed. Pulse ox is 100% on 15 liters nonrebreather mask. Afebrile, blood pressure stable. GENERAL: Visual exam done due to COVID-19. No paradoxical breathing. She is obese. No skin rash. EXTREMITIES: She has 1+ edema. LABORATORY DATA: Reviewed. She is COVID positive. Sodium 149, potassium 4.8. BUN 15, creatinine 1.2, albumin 2.4. White cell count 12.3. IMPRESSION: 1. Acute on chronic hypoxic respiratory failure secondary to COVID-19 viral pneumonia/ early ARDS/ALI 2. Underlying suspected obesity hypoventilation syndrome and obstructive sleep apnea. 3. Underlying chronic obstructive pulmonary disease. 4. Abnormal chest x-ray as discussed above. 5. Severe osteoarthritis. 6. Severe protein-calorie malnutrition. RECOMMENDATIONS: 1. I have discussed with RN. We will continue present oxygen, keep saturation 92% and above. 2. We will obtain ABGs to rule out any decompensated hypercapnia. May consider BiPAP at nighttime. 3. Avoid hyperoxia. 4. Continue dexamethasone for 10 days. 5. Empiric antibiotics, currently on doxycycline and Rocephin. 6. Heparin for DVT prophylaxis. 7. We will follow along with you. 8. Follow up chest x-ray. d/w RN. cct 35 min. ASHLEY/ALEX DR: ASHLEY/stalin TID: [id number] MTDD
[2021-05-27 12:40] LABS: BASE EXCESS ABG 7 mmol/L (-3-3); HCO3 ABG 34 mmol/L (21-28); PO2 ABG 142 mmHg (65-108); SAT O2 ABG 98 % (92-99)
[2021-05-27 12:41] LABS: FIO2 ABG 15L NRB 100%; PCO2 ABG 61 mmHg (35-46)
--- NOTE | 2021-05-27 14:16 | RAD ---
EXAM: Chest, single view. HISTORY: Respiratory failure. COMPARISON: 05/19/2021 FINDINGS: A frontal view of the chest obtained. There has been interval increase in diffuse interstit ial infiltrate. There is no convincing pleural effusion. There is no pneumothorax. There is a promine nt cardiac silhouette. IMPRESSION: Slight increase in diffuse lower lobe predominant infiltrate. Electronically signed by: Susan Barnes MD (05/27/2021 2:14 PM) [id number]
[2021-05-27] MEDS: cefTRIAXone IV Push 1 GM VIAL. IVP SCH (14:46)
[2021-05-27 15:00] VITALS: BP 155/70
[2021-05-27 19:00] VITALS: BP 167/72
[2021-05-27] MEDS: PSYLLIUM HUSK (SUGAR FREE) 1 PKT PACKET PO SCH (21:28)
[2021-05-27 23:00] VITALS: BP 152/67
[2021-05-28 03:30] VITALS: BP 157/72
[2021-05-28] MEDS: HEPARIN for SUB-Q USE 5,000 UNIT/ML VIAL. SQ SCH ×3 (06:21→21:45)
[2021-05-28 07:00] VITALS: BP 166/74
--- NOTE | 2021-05-28 07:34 | PDOC ---
PULMONARY PROGRESS NOTES DATE: 05/28/21 TIME: 07:33 Subjective feels better on 02 8 lpm Vitals Vital Signs Date Time Temp Pulse Resp B/P (MAP) Pulse Ox O2 Delivery O2 Flow Rate FiO2 05/28/21 03:30 98.4 70 22 157/72 (100) 98 Nasal Cannula 8.0 98.4 Comments no distress nc at rrr no accessory muscle use abd obese' no rash Labs Laboratory Tests Test 05/26/21 08:18 05/26/21 11:25 05/26/21 11:50 05/27/21 12:40 Glucose (Fingerstick) 232 mg/dL (70-99) Sodium Level 149 mmol/L (136-145) Potassium Level 4.8 mmol/L (3.5-5.1) Chloride Level 110 mmol/L (98-107) Carbon Dioxide Level 35 mmol/L (21-32) Anion Gap 4 (6-14) Blood Urea Nitrogen 50 mg/dL (7-20) Creatinine 1.2 mg/dL (0.6-1.0) Estimated GFR (Cockcroft-Gault) 53.3 BUN/Creatinine Ratio 42 (6-20) Glucose Level 107 mg/dL (70-99) Calcium Level 9.2 mg/dL (8.5-10.1) Magnesium Level 2.3 mg/dL (1.8-2.4) Total Bilirubin 0.3 mg/dL (0.2-1.0) Aspartate Amino Transf (AST/SGOT) 25 U/L (15-37) Alanine Aminotransferase (ALT/SGPT) 19 U/L (14-59) Alkaline Phosphatase 36 U/L (46-116) Total Protein 6.2 g/dL (6.4-8.2) Albumin 2.4 g/dL (3.4-5.0) Albumin/Globulin Ratio 0.6 (1.0-1.7) White Blood Count 12.3 x10^3/uL (4.0-11.0) Red Blood Count 3.44 x10^6/uL (3.50-5.40) Hemoglobin 10.0 g/dL (12.0-15.5) Hematocrit 32.2 % (36.0-47.0) Mean Corpuscular Volume 94 fL (79-100) Mean Corpuscular Hemoglobin 29 pg (25-35) Mean Corpuscular Hemoglobin Concent 31 g/dL (31-37) Red Cell Distribution Width 15.3 % (11.5-14.5) Platelet Count 327 x10^3/uL (140-400) Neutrophils (%) (Auto) 83 % (31-73) Lymphocytes (%) (Auto) 8 % (24-48) Monocytes (%) (Auto) 8 % (0-9) Eosinophils (%) (Auto) 0 % (0-3) Basophils (%) (Auto) 1 % (0-3) Neutrophils # (Auto) 10.3 x10^3/uL (1.8-7.7) Lymphocytes # (Auto) 0.9 x10^3/uL (1.0-4.8) Monocytes # (Auto) 1.0 x10^3/uL (0.0-1.1) Eosinophils # (Auto) 0.0 x10^3/uL (0.0-0.7) Basophils # (Auto) 0.1 x10^3/uL (0.0-0.2) Segmented Neutrophils % 88 % (35-66) Band Neutrophils % 3 % (0-9) Lymphocytes % 6 % (24-48) Monocytes % 3 % (0-10) Platelet Estimate Adequate (ADEQUATE) O2 Saturation 98 % (92-99) Arterial Blood pH 7.36 (7.35-7.45) Arterial Blood pCO2 at Patient Temp 61 mmHg (35-46) Arterial Blood pO2 at Patient Temp 142 mmHg (65-108) Arterial Blood HCO3 34 mmol/L (21-28) Arterial Blood Base Excess 7 mmol/L (-3-3) FiO2 15l nrb 100% Laboratory Tests Test 05/27/21 12:40 O2 Saturation 98 % (92-99) Arterial Blood pH 7.36 (7.35-7.45) Arterial Blood pCO2 at Patient Temp 61 mmHg (35-46) Arterial Blood pO2 at Patient Temp 142 mmHg (65-108) Arterial Blood HCO3 34 mmol/L (21-28) Arterial Blood Base Excess 7 mmol/L (-3-3) FiO2 15l nrb 100% Medications Active Scripts Medications Dose Route/Sig Max Daily Dose Days Date Category Dulera 200 Mcg/5 Mcg Inhaler (Mometasone/Formoterol) 13 Gm Hfa.aer.ad 2 Puff INH BID 05/20/21 Reported Irbesartan-Hctz 150-12.5 Mg Tb (Irbesartan/Hydrochlorothiazide) 1 Each Tablet 1 Tab PO DAILY 05/20/21 Reported Naproxen 500 Mg Tablet 1 Tab PO BID 05/20/21 Reported Impression . IMPRESSION: 1. Acute on chronic hypoxic respiratory failure secondary to COVID-19 viral pneumonia/ early ARDS/ALI 2. Underlying suspected obesity hypoventilation syndrome and obstructive sleep apnea. 3. Underlying chronic obstructive pulmonary disease. 4. Abnormal chest x-ray as discussed above. 5. Severe osteoarthritis. 6. Severe protein-calorie malnutrition. Plan . RECOMMENDATIONS: 1. titrate fio2 to keep saturation 90%. 2. BiPAP prn 3. Avoid hyperoxia. 4. Continue dexamethasone for 10 days. 5. Empiric antibiotics, currently on doxycycline and Rocephin. 6. Heparin for DVT prophylaxis. 7. We will follow along with you. 8. Follow up chest x-ray. JESSICA YUEN MD May 28, 2021 07:34
[2021-05-28] MEDS: DEXAMETHASONE SOD PHOS 4 MG/ML VIAL IVP SCH (08:28)
[2021-05-28] MEDS: ASCORBIC ACID 500 MG TABLET PO SCH (08:29)
[2021-05-28] MEDS: LACTOBACILLUS RHAMNOSUS GG 1 CAPSULE. PO SCH ×2 (08:29→21:42)
[2021-05-28] MEDS: THIAMINE 100 MG TABLET. PO SCH (08:29)
[2021-05-28] MEDS: ZINC SULFATE 220 MG CAPSULE. PO SCH (08:29)
[2021-05-28] MEDS: DOXYCYCLINE HYCLATE 100 MG TABLET PO SCH ×2 (08:29→21:42)
[2021-05-28] MEDS: IV 1/2 NORMAL SALINE 1,000 ML IV SCH (08:29)
[2021-05-28] MEDS: IPRATROPIUM/ALBUTEROL 20/100mcg/INH INHALER. INH SCH ×4 (08:30→21:41)
[2021-05-28] MEDS: FLUTICASONE FUROATE 100mcg/INH ELLIPTA INHALER. INH SCH (08:30)
[2021-05-28 11:02] VITALS: BP 164/72
[2021-05-28] MEDS: cefTRIAXone IV Push 1 GM VIAL. IVP SCH (13:33)
--- NOTE | 2021-05-28 14:52 | PDOC ---
[facility] PROGRESS NOTE Date of Service DOS: DATE: 05/28/21 TIME: 14:51 Chief Complaint Chief Complaint A/P: Intractable left hip pain - severe OA noted. With weakness after fall r/o occult fracture via MRI, will d/w ortho and PMR physicians Left leg weakness - no other neuro deficits, weakness is due to pain. Ortho and PMR consulted Unable to walk - due to left leg weakness, fall Anemia - will check iron JOSE - likely vasomotor nephropathy, will hold ARB/HCTZ, monitor renal function Transaminitis - as with JOSE may be rhabdo related Fall at home - with localized bruising. PT for gait training and assessment for safety Elevated troponin - possibly related to rhabdo. Will trend. Consult cardiology COPD - on home O2. Having asthmatic bronchitis, will cont dulera prn. Given her fever will start empiric rocephin and doxycycline and obtain influenza and COVID 19 swabs Chronic hypoxic respiratory failure - possibly acutely worsening, Will monitor pulse ox checks HTN - hold ARB/HCTZ. May start amlodipine if BP increases Bilateral knee abrasions - local wound care COVID 19 - addendum: Rapid covid 19 positive. Decadron, remdesivir, transfer to covid unit FEN - Regular diet PPX - heparin FULL CODE Dispo - inpatient History of Present Illness History of Present Illness Ms Kwan is a 71yo female with PMHx COPD on home O2, HTN, morbid obesity and osteoarthritis who comes to ED accompanied by her son for progressive weakness and left hip pain after a fall. She fell trying to get out of bed to go to the bathroom, slid off the bed and didn't make it to the bathroom, could not stand due to left leg weakness. She called EMS to get up. She has had left leg weakness for the past 2 days prior to arrival and has been mostly in bed. 2 days prior to presentation fell on the way to the bathroom and had both knees splay outward, has some abrasions on bilateral knees. Since then she has had pain and weakness in her left hip, can't bear weight on it. She notes previously she was seen outpatient for severe left hip OA and had excellent improvement for over a year with corticosteroid injection. Pelvis with no acute fracture or dislocation of the pelvis and left hip. Severe degenerative osteoarthritis of the left hip is redemonstrated. Knee radiographs with no acute fracture or dislocation of bilateral knees. left tib-fib radiograph with no acute fracture or dislocation of the left tibia- fibula. Labs with Troponin, 676, BNP 428. Cr 1.5, AST 68, Cr 3 EKG sinus rhythm with significant baseline artifact and prolonged QT 05/20: Troponin decreased. CK elevated creatinine LFTs unchanged. Still significant pain and some weakness left hip. Able to ambulate with physical therapy needs significant assistance, unable to move further than from bed to chair without complete assistance. MRI pelvis ordered. D/w radiology and ortho 05/21: Febrile to 101.6 F overnight. She still notes no worsening shortness of breath cough or upper airway symptoms. She has been taking her home O2 off and 0.102 desaturates to 84% left hip pain is a little better. MRI reviewed there is some motion degradation no occult fracture detected but with severe osteoarthrosis of left hip noted. Addendum: COVID 19 rapid positive 05/23 Patient evaluated examined at bedside. Resting in bed still requiring significant amount of supplemental O2. Needs hip injection per PMR team will wait till oxygen status little more stable before requesting this through interventional radiology. Otherwise continue COVID treatment. Plan of care discussed with bedside RN. 05/24 Patient eval and examind at bedside. Still on high O2 requirements, wean as tolerated. Continue covid treatment. Plan discussed with bedside RN. 05/25 Patient evaluated examined at bedside. Still too much oxygen. Wean as tolerated. Otherwise continue current. Too much oxygen for injection still. 05/26 Patient seen and examined at bedside. Still on pretty high oxygen but we will go ahead and try for hip injection today. Continue current COVID treatment otherwise. 05/27 Eval andexamined at bedside. Says hip somewhat better from injection. Continue covid treatment. Vitals/I&O Vitals/I&O: Vital Signs Date Time Temp Pulse Resp B/P (MAP) Pulse Ox O2 Delivery O2 Flow Rate FiO2 05/28/21 11:02 97.7 69 20 164/72 (102) 95 Nasal Cannula 8.0 97.7 I & O 05/27/21 05/27/21 05/28/21 15:00 23:00 07:00 Output Total 850 ml Balance -850 ml Physical Exam General: Alert, Oriented X3, Cooperative, mild distress Heart: Regular rate Abdomen: Normal bowel sounds, Soft, No tenderness, No hepatosplenomegaly, No masses Extremities: No clubbing, No cyanosis, No edema, Normal pulses, Other (left hip pain on external and internal rotation, pain on straight leg raise on left) Skin: Other (bilateral knee abrasions) Comment Review of Relevant I have reviewed the following items robb (where applicable) has been applied. Justifications for Admission Other Justification LAURA AMAYA MD May 28, 2021 14:52
[2021-05-28] MEDS: hydrALAZINE 20 MG/ML VIAL. IVP PRN (14:56)
[2021-05-28 15:03] VITALS: BP 155/115
--- NOTE | 2021-05-28 15:43 | NUR ---
Advised by Frandy LICONA that 1500 blood pressure was 155/115. PRN hydralazine given, BP recheck at 1540 was 181/77, hr 97. Will continue to monitor.
--- NOTE | 2021-05-28 17:36 | PDOC ---
PROGRESS NOTES Date of Service DATE: 05/28/21 TIME: 17:34 Subjective Subjective She denies any hip pain. Objective Objective Vital Signs Date Time Temp Pulse Resp B/P (MAP) Pulse Ox O2 Delivery O2 Flow Rate FiO2 05/28/21 15:03 99.0 93 22 155/115 (128) 96 Nasal Cannula 8.0 99.0 Intake and Output 05/28/21 07:00 Output Total 850 ml Balance -850 ml Output Urine Total 850 ml Physical Exam Physical Exam She is awake,supine in bed and receiving oxygen by nasal mask and she has been sleepy most of yesterday. Plan Plan of Care To see how she does with mobility in the next few days and she may need SNF transfer when medically stable. Comment Review of Relevant I have reviewed the following items robb (where applicable) has been applied. Labs Laboratory Tests Test 05/27/21 12:40 O2 Saturation 98 % (92-99) Arterial Blood pH 7.36 (7.35-7.45) Arterial Blood pCO2 at Patient Temp 61 mmHg (35-46) Arterial Blood pO2 at Patient Temp 142 mmHg (65-108) Arterial Blood HCO3 34 mmol/L (21-28) Arterial Blood Base Excess 7 mmol/L (-3-3) FiO2 15l nrb 100% Microbiology 05/21/21 Blood Culture - Final, Complete NO GROWTH AFTER 5 DAYS 05/19/21 Urine Culture - Final, Complete Medications Current Medications Acetaminophen/ Hydrocodone Bitart (Lortab 5/325) 1 tab 1X ONCE PO ; Start 05/19/21 at 13:00; Stop 05/19/21 at 13:01; Status DC Naproxen (Naprosyn) 500 mg 1X ONCE PO Last administered on 05/19/21at 13:30; Start 05/19/21 at 13:30; Stop 05/19/21 at 13:31; Status DC Ondansetron HCl (Zofran) 4 mg PRN Q4HRS PRN IVP NAUSEA/VOMITING; Start 05/19/21 at 16:30 Acetaminophen (Tylenol) 650 mg PRN Q6HRS PRN PO MILD PAIN / TEMP > 100.3'F Last administered on 05/21/21at 03:27; Start 05/19/21 at 16:30 Psyllium Hydrophilic Mucilloid (Metamucil Fiber Packet) 1 pkt QHS PO Last administered on 05/27/21at 21:28; Start 05/19/21 at 21:00 Sodium Chloride 1,000 ml @ 75 mls/hr [id number] IV Last administered on 05/20/21at 05:52; Start 05/19/21 at 17:15; Stop 05/20/21 at 17:14; Status DC Hydralazine HCl (Apresoline Inj) 10 mg PRN Q4HRS PRN IVP ELEVATED BP, SEE COMMENTS Last administered on 05/28/21at 14:56; Start 05/20/21 at 01:15 Tramadol HCl (Ultram) 50 mg PRN Q6HRS PRN PO PAIN MOD/SEVERE; Start 05/20/21 at 01:15 Guaifenesin (Robitussin Dm) 10 ml PRN Q6HRS PRN PO COUGH Last administered on 05/27/21at 09:09; Start 05/20/21 at 01:15 Albuterol/ Ipratropium (Duoneb) 3 ml RTQID NEB Last administered on 05/21/21at 11:26; Start 05/20/21 at 08:00; Stop 05/21/21 at 22:49; Status DC Albuterol Sulfate (Ventolin Neb Soln) 2.5 mg PRN Q4HRS PRN NEB SHORTNESS OF BREATH; Start 05/20/21 at 01:15 Budesonide (Pulmicort) 0.5 mg RTBID NEB Last administered on 05/21/21at 07:54; Start 05/20/21 at 08:00; Stop 05/21/21 at 22:49; Status DC Heparin Sodium (Porcine) (Heparin Sodium) 5,000 unit Q8HRS SQ Last administered on 05/28/21at 13:32; Start 05/20/21 at 06:00 Bupivacaine HCl (Sensorcaine-Mpf 0.25%) 10 ml 1X ONCE IJ ; Start 05/20/21 at 10:15; Stop 05/20/21 at 10:20; Status DC Lidocaine HCl (Lidocaine 1% 20ml Vial) 20 ml 1X ONCE INJ ; Start 05/20/21 at 10:15; Stop 05/20/21 at 10:20; Status DC Iohexol (Omnipaque 300 Mg/ml) 50 ml 1X ONCE IJ ; Start 05/20/21 at 10:15; Stop 05/20/21 at 10:20; Status DC Info (CONTRAST GIVEN -- Rx MONITORING) 1 each PRN DAILY PRN MC SEE COMMENTS; Start 05/20/21 at 10:30; Stop 05/22/21 at 10:29; Status DC Methylprednisolone Acetate (DEPO-Medrol 40MG VIAL) 40 mg STK-MED ONCE .ROUTE ; Start 05/20/21 at 12:33; Stop 05/20/21 at 12:33; Status DC Bupivacaine HCl (Sensorcaine Mpf 0.5%) 10 ml STK-MED ONCE .ROUTE ; Start 05/20/21 at 12:38; Stop 05/20/21 at 12:38; Status DC Ceftriaxone Sodium (Rocephin) 1 gm Q24H IVP Last administered on 05/28/21at 13:33; Start 05/21/21 at 13:00 Doxycycline Hyclate (Vibra-Tab) 100 mg BID PO Last administered on 05/28/21at 08:29; Start 05/21/21 at 13:00 Remdesivir 200 mg/ Sodium Chloride 210 ml @ 210 mls/hr 1X ONCE IV Last administered on 05/21/21at 17:10; Start 05/21/21 at 15:00; Stop 05/21/21 at 15:59; Status DC Remdesivir 100 mg/ Sodium Chloride 230 ml @ 460 mls/hr Q24H IV Last administered on 05/25/21at 13:25; Start 05/22/21 at 14:00; Stop 05/25/21 at 14:29; Status DC Dexamethasone Sodium Phosphate (Decadron) 6 mg DAILY IVP Last administered on 05/28/21at 08:28; Start 05/21/21 at 14:00; Stop 05/30/21 at 09:01 Zinc Sulfate (Orazinc) 220 mg DAILY PO Last administered on 05/28/21at 08:29; Start 05/22/21 at 09:00 Thiamine Mononitrate (Vitamin B-1) 100 mg DAILY PO Last administered on 05/28/21at 08:29; Start 05/22/21 at 09:00 Ascorbic Acid (Vitamin C) 500 mg DAILY PO Last administered on 05/28/21at 08:29; Start 05/22/21 at 09:00 Fluticasone Furoate (ARNUITY 100mcg ELLIPTA) 1 puff DAILY INH Last administered on 05/28/21at 08:30; Start 05/22/21 at 09:00 Albuterol/ Ipratropium (Combivent Respimat 20-100 Mcg) 1 puff RTQID INH Last administered on 05/28/21at 16:00; Start 05/22/21 at 08:00 Sodium Chloride 1,000 ml @ 100 mls/hr Q10H IV Last administered on 05/26/21at 06:40; Start 05/22/21 at 14:45; Stop 05/26/21 at 14:02; Status DC Lactobacillus Rhamnosus (Culturelle) 1 cap BID PO Last administered on 05/28/21at 08:29; Start 05/23/21 at 21:00 Methylprednisolone Acetate (DEPO-Medrol 80MG VIAL) 80 mg STK-MED ONCE .ROUTE ; Start 05/26/21 at 13:32; Stop 05/26/21 at 13:33; Status DC Iohexol (Omnipaque 300 Mg/ml) 50 ml STK-MED ONCE .ROUTE ; Start 05/26/21 at 13:33; Stop 05/26/21 at 13:33; Status DC Bupivacaine HCl (Sensorcaine Mpf 0.5%) 10 ml STK-MED ONCE .ROUTE ; Start 05/26/21 at 13:33; Stop 05/26/21 at 13:33; Status DC Lidocaine HCl (Lidocaine 1% 20ml Vial) 20 ml STK-MED ONCE .ROUTE ; Start 05/26/21 at 13:34; Stop 05/26/21 at 13:34; Status DC Bupivacaine HCl (Sensorcaine Mpf 0.5%) 10 ml 1X ONCE IJ ; Start 05/26/21 at 13:45; Stop 05/26/21 at 13:46; Status DC Sodium Chloride 1,000 ml @ 75 mls/hr [id number] IV Last administered on 05/28/21at 08:29; Start 05/26/21 at 14:15 Active Scripts Active Reported Dulera 200 Mcg/5 Mcg Inhaler (Mometasone/Formoterol) 13 Gm Hfa.aer.ad 2 Puff INH BID Irbesartan-Hctz 150-12.5 Mg Tb (Irbesartan/Hydrochlorothiazide) 1 Each Tablet 1 Tab PO DAILY Naproxen 500 Mg Tablet 1 Tab PO BID Vitals/I & O Vital Sign - Last 24 Hours 05/27/21 05/27/21 05/27/21 05/28/21 19:00 20:00 23:00 03:30 Temp 98.0 99.1 98.4 98.0 99.1 98.4 Pulse 72 86 70 Resp 20 20 22 B/P (MAP) 167/72 (103) 152/67 (95) 157/72 (100) Pulse Ox 93 94 98 O2 Delivery Mask Nasal Cannula O2 Flow Rate 10.0 8.0 05/28/21 05/28/21 05/28/21 05/28/21 07:00 08:00 11:02 14:56 Temp 98.1 97.7 98.1 97.7 Pulse 65 69 93 Resp 22 20 B/P (MAP) 166/74 (104) 164/72 (102) 155/115 Pulse Ox 99 95 O2 Delivery Nasal Cannula Mask Nasal Cannula O2 Flow Rate 8.0 8.0 8.0 05/28/21 15:03 Temp 99.0 99.0 Pulse 93 Resp 22 B/P (MAP) 155/115 (128) Pulse Ox 96 O2 Delivery Nasal Cannula O2 Flow Rate 8.0 Intake and Output 05/27/21 05/27/21 05/28/21 15:00 23:00 07:00 Output Total 850 ml Balance -850 ml Justifications for Admission Other Justification NUSRAT CHARLES MD May 28, 2021 17:36
[2021-05-28 19:31] VITALS: BP 164/76
[2021-05-28] MEDS: PSYLLIUM HUSK (SUGAR FREE) 1 PKT PACKET PO SCH (21:42)
[2021-05-28 22:42] VITALS: BP 184/78
[2021-05-29] MEDS: IV 1/2 NORMAL SALINE 1,000 ML IV SCH ×3 (00:38→22:15)
[2021-05-29 03:10] VITALS: BP 199/81
[2021-05-29] MEDS: HEPARIN for SUB-Q USE 5,000 UNIT/ML VIAL. SQ SCH ×3 (05:56→21:09)
--- NOTE | 2021-05-29 06:44 | PDOC ---
PULMONARY PROGRESS NOTES DATE: 05/29/21 TIME: 06:42 Subjective feels better on 02 6 lpm didnt use bipap Vitals Vital Signs Date Time Temp Pulse Resp B/P (MAP) Pulse Ox O2 Delivery O2 Flow Rate FiO2 05/29/21 03:10 98.4 70 18 199/81 (120) 97 Nasal Cannula 8.0 98.4 Comments no distress nc at rrr no accessory muscle use abd obese' no rash Labs Laboratory Tests Test 05/27/21 12:40 O2 Saturation 98 % (92-99) Arterial Blood pH 7.36 (7.35-7.45) Arterial Blood pCO2 at Patient Temp 61 mmHg (35-46) Arterial Blood pO2 at Patient Temp 142 mmHg (65-108) Arterial Blood HCO3 34 mmol/L (21-28) Arterial Blood Base Excess 7 mmol/L (-3-3) FiO2 15l nrb 100% Medications Active Scripts Medications Dose Route/Sig Max Daily Dose Days Date Category Dulera 200 Mcg/5 Mcg Inhaler (Mometasone/Formoterol) 13 Gm Hfa.aer.ad 2 Puff INH BID 05/20/21 Reported Irbesartan-Hctz 150-12.5 Mg Tb (Irbesartan/Hydrochlorothiazide) 1 Each Tablet 1 Tab PO DAILY 05/20/21 Reported Naproxen 500 Mg Tablet 1 Tab PO BID 05/20/21 Reported Impression . IMPRESSION: 1. Acute on chronic hypoxic respiratory failure secondary to COVID-19 viral pneumonia/ early ARDS/ALI 2. Underlying suspected obesity hypoventilation syndrome and obstructive sleep apnea. 3. Underlying chronic obstructive pulmonary disease. 4. Abnormal chest x-ray as discussed above. 5. Severe osteoarthritis. 6. Severe protein-calorie malnutrition. Plan . RECOMMENDATIONS: 1. titrate fio2 to keep saturation 90%. now 02 6lpm 2. BiPAP prn 3. Avoid hyperoxia. 4. Continue dexamethasone for 10 days. 5. Empiric antibiotics, doxycycline and Rocephin. 6. Heparin for DVT prophylaxis. 7. We will follow along with you. 8. discussed w JESSICA Gill MD May 29, 2021 06:44
[2021-05-29 07:00] VITALS: BP 161/88
[2021-05-29] MEDS: IPRATROPIUM/ALBUTEROL 20/100mcg/INH INHALER. INH SCH ×4 (09:11→21:07)
[2021-05-29] MEDS: LACTOBACILLUS RHAMNOSUS GG 1 CAPSULE. PO SCH ×2 (09:12→21:08)
[2021-05-29] MEDS: DEXAMETHASONE SOD PHOS 4 MG/ML VIAL IVP SCH (09:12)
[2021-05-29] MEDS: FLUTICASONE FUROATE 100mcg/INH ELLIPTA INHALER. INH SCH (09:12)
[2021-05-29] MEDS: THIAMINE 100 MG TABLET. PO SCH (09:12)
[2021-05-29] MEDS: guaiFENesin DM 200MG/20MG 10 ML SYRUP PO PRN (09:12)
[2021-05-29] MEDS: DOXYCYCLINE HYCLATE 100 MG TABLET PO SCH ×2 (09:12→21:08)
[2021-05-29] MEDS: ASCORBIC ACID 500 MG TABLET PO SCH (09:12)
[2021-05-29] MEDS: ZINC SULFATE 220 MG CAPSULE. PO SCH (09:12)
[2021-05-29 11:00] VITALS: BP 228/95
[2021-05-29] MEDS: hydrALAZINE 20 MG/ML VIAL. IVP PRN ×2 (11:09→18:48)
[2021-05-29] MEDS: hydroCHLOROthiazide 12.5 MG CAPSULE PO SCH (11:55)
[2021-05-29] MEDS: LOSARTAN POTASSIUM 50 MG TABLET. PO SCH (11:55)
[2021-05-29] MEDS ORDERED: ALBUTEROL SULFATE 2.5 MG/3 ML NEBU. NEB SCH (12:00)
[2021-05-29] MEDS ORDERED: BUDESONIDE 0.5 MG/2 ML NEBU. NEB SCH (12:00)
[2021-05-29] MEDS: cefTRIAXone IV Push 1 GM VIAL. IVP SCH (13:21)
[2021-05-29 15:00] VITALS: BP 127/58
[2021-05-29 19:00] VITALS: BP 186/80
[2021-05-29] MEDS ORDERED: NON FORMULARY ITEM (Mometasone/Formoterol (Dulera 200 Mcg/5 Mcg Inhaler) 2 PUFF) INH SCH (21:00)
[2021-05-29] MEDS: PSYLLIUM HUSK (SUGAR FREE) 1 PKT PACKET PO SCH (21:08)
[2021-05-29 23:00] VITALS: BP 156/74
[2021-05-30 03:17] VITALS: BP 166/77
[2021-05-30] MEDS: hydrALAZINE 20 MG/ML VIAL. IVP PRN (05:07)
[2021-05-30] MEDS: HEPARIN for SUB-Q USE 5,000 UNIT/ML VIAL. SQ SCH ×3 (05:08→21:57)
[2021-05-30 07:00] VITALS: BP 139/61
[2021-05-30 08:00] LABS: BASO % 0 % (0-3); EOS % 0 % (0-3); HEMATOCRIT 31.8 % (36.0-47.0); HEMOGLOBIN 10.1 g/dL (12.0-15.5); LYMPH # 1.7 x10^3/uL (1.0-4.8); LYMPH % 11 % (24-48); MEAN CORPUSCULAR HEMOGLOBIN 29 pg (25-35); MEAN CORPUSCULAR HGB CONC 32 g/dL (31-37); MEAN CORPUSCULAR VOLUME 93 fL (79-100); MONO # 1.2 x10^3/uL (0.0-1.1); MONO % 8 % (0-9); NEUT # 12.4 x10^3/uL (1.8-7.7); NEUT % 81 % (31-73); PLATELET COUNT 300 x10^3/uL (140-400); RED BLOOD COUNT 3.44 x10^6/uL (3.50-5.40); RED CELL DISTRIBUTION WIDTH 15.1 % (11.5-14.5); WHITE BLOOD COUNT 15.4 x10^3/uL (4.0-11.0)
--- NOTE | 2021-05-30 08:57 | PDOC ---
PROGRESS NOTES Date of Service DATE: 05/30/21 TIME: 08:54 Subjective Subjective No new complaints. Objective Objective Vital Signs Date Time Temp Pulse Resp B/P (MAP) Pulse Ox O2 Delivery O2 Flow Rate FiO2 05/30/21 05:07 93 166/77 05/30/21 03:17 98.7 18 98 Nasal Cannula 10.0 98.7 Intake and Output 05/30/21 07:00 Intake Total 1350 ml Output Total 2400 ml Balance -1050 ml Intake Oral 600 ml IV Total 750 ml Output Urine Total 2400 ml Physical Exam Physical Exam She is resting supine in bed and seems comfortable receiving oxygen by nasal mask and she got up by herself yesterday but urinary incontinence as per nursing staff. Plan Plan of Care To SNF when medically stable. Comment Review of Relevant I have reviewed the following items robb (where applicable) has been applied. Labs Laboratory Tests Test 05/30/21 06:30 White Blood Count 15.4 x10^3/uL (4.0-11.0) Red Blood Count 3.44 x10^6/uL (3.50-5.40) Hemoglobin 10.1 g/dL (12.0-15.5) Hematocrit 31.8 % (36.0-47.0) Mean Corpuscular Volume 93 fL (79-100) Mean Corpuscular Hemoglobin 29 pg (25-35) Mean Corpuscular Hemoglobin Concent 32 g/dL (31-37) Red Cell Distribution Width 15.1 % (11.5-14.5) Platelet Count 300 x10^3/uL (140-400) Neutrophils (%) (Auto) 81 % (31-73) Lymphocytes (%) (Auto) 11 % (24-48) Monocytes (%) (Auto) 8 % (0-9) Eosinophils (%) (Auto) 0 % (0-3) Basophils (%) (Auto) 0 % (0-3) Neutrophils # (Auto) 12.4 x10^3/uL (1.8-7.7) Lymphocytes # (Auto) 1.7 x10^3/uL (1.0-4.8) Monocytes # (Auto) 1.2 x10^3/uL (0.0-1.1) Eosinophils # (Auto) 0.0 x10^3/uL (0.0-0.7) Basophils # (Auto) 0.0 x10^3/uL (0.0-0.2) Laboratory Tests Test 05/30/21 06:30 White Blood Count 15.4 x10^3/uL (4.0-11.0) Red Blood Count 3.44 x10^6/uL (3.50-5.40) Hemoglobin 10.1 g/dL (12.0-15.5) Hematocrit 31.8 % (36.0-47.0) Mean Corpuscular Volume 93 fL (79-100) Mean Corpuscular Hemoglobin 29 pg (25-35) Mean Corpuscular Hemoglobin Concent 32 g/dL (31-37) Red Cell Distribution Width 15.1 % (11.5-14.5) Platelet Count 300 x10^3/uL (140-400) Neutrophils (%) (Auto) 81 % (31-73) Lymphocytes (%) (Auto) 11 % (24-48) Monocytes (%) (Auto) 8 % (0-9) Eosinophils (%) (Auto) 0 % (0-3) Basophils (%) (Auto) 0 % (0-3) Neutrophils # (Auto) 12.4 x10^3/uL (1.8-7.7) Lymphocytes # (Auto) 1.7 x10^3/uL (1.0-4.8) Monocytes # (Auto) 1.2 x10^3/uL (0.0-1.1) Eosinophils # (Auto) 0.0 x10^3/uL (0.0-0.7) Basophils # (Auto) 0.0 x10^3/uL (0.0-0.2) Microbiology 05/21/21 Blood Culture - Final, Complete NO GROWTH AFTER 5 DAYS 05/19/21 Urine Culture - Final, Complete Medications Current Medications Acetaminophen/ Hydrocodone Bitart (Lortab 5/325) 1 tab 1X ONCE PO ; Start 05/19/21 at 13:00; Stop 05/19/21 at 13:01; Status DC Naproxen (Naprosyn) 500 mg 1X ONCE PO Last administered on 05/19/21at 13:30; Start 05/19/21 at 13:30; Stop 05/19/21 at 13:31; Status DC Ondansetron HCl (Zofran) 4 mg PRN Q4HRS PRN IVP NAUSEA/VOMITING; Start 05/19/21 at 16:30 Acetaminophen (Tylenol) 650 mg PRN Q6HRS PRN PO MILD PAIN / TEMP > 100.3'F Last administered on 05/21/21at 03:27; Start 05/19/21 at 16:30 Psyllium Hydrophilic Mucilloid (Metamucil Fiber Packet) 1 pkt QHS PO Last administered on 05/29/21at 21:08; Start 05/19/21 at 21:00 Sodium Chloride 1,000 ml @ 75 mls/hr [id number] IV Last administered on 05/20/21at 05:52; Start 05/19/21 at 17:15; Stop 05/20/21 at 17:14; Status DC Hydralazine HCl (Apresoline Inj) 10 mg PRN Q4HRS PRN IVP ELEVATED BP, SEE COM MENTS Last administered on 05/30/21at 05:07; Start 05/20/21 at 01:15 Tramadol HCl (Ultram) 50 mg PRN Q6HRS PRN PO PAIN MOD/SEVERE; Start 05/20/21 at 01:15 Guaifenesin (Robitussin Dm) 10 ml PRN Q6HRS PRN PO COUGH Last administered on 05/29/21at 09:12; Start 05/20/21 at 01:15 Albuterol/ Ipratropium (Duoneb) 3 ml RTQID NEB Last administered on 05/21/21at 11:26; Start 05/20/21 at 08:00; Stop 05/21/21 at 22:49; Status DC Albuterol Sulfate (Ventolin Neb Soln) 2.5 mg PRN Q4HRS PRN NEB SHORTNESS OF BREATH; Start 05/20/21 at 01:15 Budesonide (Pulmicort) 0.5 mg RTBID NEB Last administered on 05/21/21at 07:54; Start 05/20/21 at 08:00; Stop 05/21/21 at 22:49; Status DC Heparin Sodium (Porcine) (Heparin Sodium) 5,000 unit Q8HRS SQ Last administered on 05/30/21at 05:08; Start 05/20/21 at 06:00 Bupivacaine HCl (Sensorcaine-Mpf 0.25%) 10 ml 1X ONCE IJ ; Start 05/20/21 at 10:15; Stop 05/20/21 at 10:20; Status DC Lidocaine HCl (Lidocaine 1% 20ml Vial) 20 ml 1X ONCE INJ ; Start 05/20/21 at 10:15; Stop 05/20/21 at 10:20; Status DC Iohexol (Omnipaque 300 Mg/ml) 50 ml 1X ONCE IJ ; Start 05/20/21 at 10:15; Stop 05/20/21 at 10:20; Status DC Info (CONTRAST GIVEN -- Rx MONITORING) 1 each PRN DAILY PRN MC SEE COMMENTS; Start 05/20/21 at 10:30; Stop 05/22/21 at 10:29; Status DC Methylprednisolone Acetate (DEPO-Medrol 40MG VIAL) 40 mg STK-MED ONCE .ROUTE ; Start 05/20/21 at 12:33; Stop 05/20/21 at 12:33; Status DC Bupivacaine HCl (Sensorcaine Mpf 0.5%) 10 ml STK-MED ONCE .ROUTE ; Start 05/20/21 at 12:38; Stop 05/20/21 at 12:38; Status DC Ceftriaxone Sodium (Rocephin) 1 gm Q24H IVP Last administered on 05/29/21at 13:21; Start 05/21/21 at 13:00 Doxycycline Hyclate (Vibra-Tab) 100 mg BID PO Last administered on 05/29/21at 21:08; Start 05/21/21 at 13:00 Remdesivir 200 mg/ Sodium Chloride 210 ml @ 210 mls/hr 1X ONCE IV Last administered on 05/21/21at 17:10; Start 05/21/21 at 15:00; Stop 05/21/21 at 15:59; Status DC Remdesivir 100 mg/ Sodium Chloride 230 ml @ 460 mls/hr Q24H IV Last administered on 05/25/21at 13:25; Start 05/22/21 at 14:00; Stop 05/25/21 at 14:29; Status DC Dexamethasone Sodium Phosphate (Decadron) 6 mg DAILY IVP Last administered on 05/29/21at 09:12; Start 05/21/21 at 14:00; Stop 05/30/21 at 09:01 Zinc Sulfate (Orazinc) 220 mg DAILY PO Last administered on 05/29/21at 09:12; Start 05/22/21 at 09:00 Thiamine Mononitrate (Vitamin B-1) 100 mg DAILY PO Last administered on 05/29/21at 09:12; Start 05/22/21 at 09:00 Ascorbic Acid (Vitamin C) 500 mg DAILY PO Last administered on 05/29/21at 09:12; Start 05/22/21 at 09:00 Fluticasone Furoate (ARNUITY 100mcg ELLIPTA) 1 puff DAILY INH Last administered on 05/29/21at 09:12; Start 05/22/21 at 09:00 Albuterol/ Ipratropium (Combivent Respimat 20-100 Mcg) 1 puff RTQID INH Last administered on 05/29/21at 21:07; Start 05/22/21 at 08:00 Sodium Chloride 1,000 ml @ 100 mls/hr Q10H IV Last administered on 05/26/21at 06:40; Start 05/22/21 at 14:45; Stop 05/26/21 at 14:02; Status DC Lactobacillus Rhamnosus (Culturelle) 1 cap BID PO Last administered on 05/29/21at 21:08; Start 05/23/21 at 21:00 Methylprednisolone Acetate (DEPO-Medrol 80MG VIAL) 80 mg STK-MED ONCE .ROUTE ; Start 05/26/21 at 13:32; Stop 05/26/21 at 13:33; Status DC Iohexol (Omnipaque 300 Mg/ml) 50 ml STK-MED ONCE .ROUTE ; Start 05/26/21 at 13:33; Stop 05/26/21 at 13:33; Status DC Bupivacaine HCl (Sensorcaine Mpf 0.5%) 10 ml STK-MED ONCE .ROUTE ; Start 05/26/21 at 13:33; Stop 05/26/21 at 13:33; Status DC Lidocaine HCl (Lidocaine 1% 20ml Vial) 20 ml STK-MED ONCE .ROUTE ; Start 05/26/21 at 13:34; Stop 05/26/21 at 13:34; Status DC Bupivacaine HCl (Sensorcaine Mpf 0.5%) 10 ml 1X ONCE IJ ; Start 05/26/21 at 13:45; Stop 05/26/21 at 13:46; Status DC Sodium Chloride 1,000 ml @ 75 mls/hr [id number] IV Last administered on 05/29/21at 00:38; Start 05/26/21 at 14:15 Losartan Potassium (Cozaar) 50 mg DAILY PO Last administered on 05/29/21at 11:55; Start 05/29/21 at 12:00 Non-Formulary Medication (Mometasone/ Formoterol (Dulera 200 Mcg/5 Mcg Inhaler)) 2 puff BID INH ; Start 05/29/21 at 21:00; Status UNV Albuterol Sulfate (Ventolin Neb Soln) 2.5 mg Q6HRS NEB ; Start 05/29/21 at 12:00; Stop 05/29/21 at 11:46; Status DC Budesonide (Pulmicort) 0.5 mg RTBID NEB ; Start 05/29/21 at 12:00; Stop 05/29/21 at 11:46; Status DC Hydrochlorothiazide (Microzide) 12.5 mg DAILY PO Last administered on 05/29/21at 11:55; Start 05/29/21 at 12:00 Active Scripts Active Reported Dulera 200 Mcg/5 Mcg Inhaler (Mometasone/Formoterol) 13 Gm Hfa.aer.ad 2 Puff INH BID Irbesartan-Hctz 150-12.5 Mg Tb (Irbesartan/Hydrochlorothiazide) 1 Each Tablet 1 Tab PO DAILY Naproxen 500 Mg Tablet 1 Tab PO BID Vitals/I & O Vital Sign - Last 24 Hours 05/29/21 05/29/21 05/29/21 05/29/21 11:00 11:09 11:55 15:00 Temp 96.9 98.4 96.9 98.4 Pulse 70 95 95 88 Resp 24 22 B/P (MAP) 228/95 (139) 228/95 228/95 127/58 (81) Pulse Ox 90 96 O2 Delivery NonRebreather Mask NonRebreather Mask O2 Flow Rate 8.0 8.0 05/29/21 05/29/21 05/29/21 05/29/21 18:48 19:00 20:00 23:00 Temp 98.3 99.5 98.3 99.5 Pulse 92 94 89 Resp 18 20 B/P (MAP) 186/80 186/80 (115) 156/74 (101) Pulse Ox 93 95 O2 Delivery NonRebreather Mask Mask Nasal Cannula O2 Flow Rate 8.0 6.0 10.0 05/30/21 05/30/21 03:17 05:07 Temp 98.7 98.7 Pulse 93 93 Resp 18 B/P (MAP) 166/77 (106) 166/77 Pulse Ox 98 O2 Delivery Nasal Cannula O2 Flow Rate 10.0 Intake and Output 05/29/21 05/29/21 05/30/21 15:00 23:00 07:00 Intake Total 1050 ml 300 ml Output Total 1400 ml 1000 ml Balance 1050 ml -1100 ml -1000 ml Justifications for Admission Other Justification NUSRAT CHARLES MD May 30, 2021 08:57
[2021-05-30] MEDS: FLUTICASONE FUROATE 100mcg/INH ELLIPTA INHALER. INH SCH (09:03)
[2021-05-30] MEDS: ZINC SULFATE 220 MG CAPSULE. PO SCH (09:03)
[2021-05-30] MEDS: IPRATROPIUM/ALBUTEROL 20/100mcg/INH INHALER. INH SCH ×4 (09:03→19:56)
[2021-05-30] MEDS: DEXAMETHASONE SOD PHOS 4 MG/ML VIAL IVP SCH (09:03)
[2021-05-30] MEDS: LOSARTAN POTASSIUM 50 MG TABLET. PO SCH (09:09)
[2021-05-30] MEDS: LACTOBACILLUS RHAMNOSUS GG 1 CAPSULE. PO SCH ×2 (09:09→21:52)
[2021-05-30] MEDS: hydroCHLOROthiazide 12.5 MG CAPSULE PO SCH (09:09)
[2021-05-30] MEDS: ASCORBIC ACID 500 MG TABLET PO SCH (09:10)
[2021-05-30] MEDS: DOXYCYCLINE HYCLATE 100 MG TABLET PO SCH ×2 (09:10→21:52)
[2021-05-30] MEDS: THIAMINE 100 MG TABLET. PO SCH (09:10)
--- NOTE | 2021-05-30 09:45 | PDOC ---
PULMONARY PROGRESS NOTES DATE: 05/30/21 TIME: 09:42 Subjective Patient is currently feeling better, no paradoxical breathing, comfortable in bed and currently on 8LNC. Vitals Vital Signs Date Time Temp Pulse Resp B/P (MAP) Pulse Ox O2 Delivery O2 Flow Rate FiO2 05/30/21 09:09 84 139/61 05/30/21 07:00 98.9 19 97 Simple Mask 8.0 98.9 Comments visual exam completed no distress nc at rrr no accessory muscle use abd obese' no rash Labs Laboratory Tests Test 05/30/21 06:30 White Blood Count 15.4 x10^3/uL (4.0-11.0) Red Blood Count 3.44 x10^6/uL (3.50-5.40) Hemoglobin 10.1 g/dL (12.0-15.5) Hematocrit 31.8 % (36.0-47.0) Mean Corpuscular Volume 93 fL (79-100) Mean Corpuscular Hemoglobin 29 pg (25-35) Mean Corpuscular Hemoglobin Concent 32 g/dL (31-37) Red Cell Distribution Width 15.1 % (11.5-14.5) Platelet Count 300 x10^3/uL (140-400) Neutrophils (%) (Auto) 81 % (31-73) Lymphocytes (%) (Auto) 11 % (24-48) Monocytes (%) (Auto) 8 % (0-9) Eosinophils (%) (Auto) 0 % (0-3) Basophils (%) (Auto) 0 % (0-3) Neutrophils # (Auto) 12.4 x10^3/uL (1.8-7.7) Lymphocytes # (Auto) 1.7 x10^3/uL (1.0-4.8) Monocytes # (Auto) 1.2 x10^3/uL (0.0-1.1) Eosinophils # (Auto) 0.0 x10^3/uL (0.0-0.7) Basophils # (Auto) 0.0 x10^3/uL (0.0-0.2) Laboratory Tests Test 05/30/21 06:30 White Blood Count 15.4 x10^3/uL (4.0-11.0) Red Blood Count 3.44 x10^6/uL (3.50-5.40) Hemoglobin 10.1 g/dL (12.0-15.5) Hematocrit 31.8 % (36.0-47.0) Mean Corpuscular Volume 93 fL (79-100) Mean Corpuscular Hemoglobin 29 pg (25-35) Mean Corpuscular Hemoglobin Concent 32 g/dL (31-37) Red Cell Distribution Width 15.1 % (11.5-14.5) Platelet Count 300 x10^3/uL (140-400) Neutrophils (%) (Auto) 81 % (31-73) Lymphocytes (%) (Auto) 11 % (24-48) Monocytes (%) (Auto) 8 % (0-9) Eosinophils (%) (Auto) 0 % (0-3) Basophils (%) (Auto) 0 % (0-3) Neutrophils # (Auto) 12.4 x10^3/uL (1.8-7.7) Lymphocytes # (Auto) 1.7 x10^3/uL (1.0-4.8) Monocytes # (Auto) 1.2 x10^3/uL (0.0-1.1) Eosinophils # (Auto) 0.0 x10^3/uL (0.0-0.7) Basophils # (Auto) 0.0 x10^3/uL (0.0-0.2) Medications Active Scripts Medications Dose Route/Sig Max Daily Dose Days Date Category Dulera 200 Mcg/5 Mcg Inhaler (Mometasone/Formoterol) 13 Gm Hfa.aer.ad 2 Puff INH BID 05/20/21 Reported Irbesartan-Hctz 150-12.5 Mg Tb (Irbesartan/Hydrochlorothiazide) 1 Each Tablet 1 Tab PO DAILY 05/20/21 Reported Naproxen 500 Mg Tablet 1 Tab PO BID 05/20/21 Reported Impression . IMPRESSION: 1. Acute on chronic hypoxic respiratory failure secondary to COVID-19 viral pneumonia/ early ARDS/ALI 2. Underlying suspected obesity hypoventilation syndrome and obstructive sleep apnea. 3. Underlying chronic obstructive pulmonary disease. 4. Abnormal chest x-ray as discussed above. 5. Severe osteoarthritis. 6. Severe protein-calorie malnutrition. Plan . RECOMMENDATIONS: 1. titrate fio2 to keep saturation 90%. now 02 8lpm 2. BiPAP prn 3. Avoid hyperoxia. 4. Continue dexamethasone for 10 days. 5. Empiric antibiotics, doxycycline and Rocephin. 6. Heparin for DVT prophylaxis. 7. We will follow along with you. 8. discussed w ALO Harrison MD May 30, 2021 09:45
[2021-05-30] MEDS ORDERED: hydroCHLOROthiazide 12.5 MG CAPSULE PO ONE (10:00)
[2021-05-30 10:01] LABS: CALCIUM 8.9 mg/dL (8.5-10.1); GFR 65.8
[2021-05-30 11:00] VITALS: BP 140/59
[2021-05-30] MEDS: IV 1/2 NORMAL SALINE 1,000 ML IV SCH (11:35)
[2021-05-30] MEDS: cefTRIAXone IV Push 1 GM VIAL. IVP SCH (14:54)
[2021-05-30 15:00] VITALS: BP 124/56
[2021-05-30 19:00] VITALS: BP 154/69
[2021-05-30] MEDS: PSYLLIUM HUSK (SUGAR FREE) 1 PKT PACKET PO SCH (21:52)
[2021-05-30 23:00] VITALS: BP 116/58
--- NOTE | 2021-05-30 23:57 | PDOC ---
[facility] PROGRESS NOTE Date of Service DOS: DATE: 05/30/21 TIME: 23:56 Chief Complaint Chief Complaint A/P: Intractable left hip pain - severe OA noted. With weakness after fall r/o occult fracture via MRI, will d/w ortho and PMR physicians Left leg weakness - no other neuro deficits, weakness is due to pain. Ortho and PMR consulted Unable to walk - due to left leg weakness, fall Anemia - will check iron JOSE - likely vasomotor nephropathy, will hold ARB/HCTZ, monitor renal function Transaminitis - as with JOSE may be rhabdo related Fall at home - with localized bruising. PT for gait training and assessment for safety Elevated troponin - possibly related to rhabdo. Will trend. Consult cardiology COPD - on home O2. Having asthmatic bronchitis, will cont dulera prn. Given her fever will start empiric rocephin and doxycycline and obtain influenza and COVID 19 swabs Chronic hypoxic respiratory failure - possibly acutely worsening, Will monitor pulse ox checks HTN - hold ARB/HCTZ. May start amlodipine if BP increases Bilateral knee abrasions - local wound care COVID 19 - addendum: Rapid covid 19 positive. Decadron, remdesivir, transfer to covid unit FEN - Regular diet PPX - heparin FULL CODE Dispo - inpatient History of Present Illness History of Present Illness Ms Kwan is a 71yo female with PMHx COPD on home O2, HTN, morbid obesity and osteoarthritis who comes to ED accompanied by her son for progressive weakness and left hip pain after a fall. She fell trying to get out of bed to go to the bathroom, slid off the bed and didn't make it to the bathroom, could not stand due to left leg weakness. She called EMS to get up. She has had left leg weakness for the past 2 days prior to arrival and has been mostly in bed. 2 days prior to presentation fell on the way to the bathroom and had both knees splay outward, has some abrasions on bilateral knees. Since then she has had pain and weakness in her left hip, can't bear weight on it. She notes previously she was seen outpatient for severe left hip OA and had excellent improvement for over a year with corticosteroid injection. Pelvis with no acute fracture or dislocation of the pelvis and left hip. Severe degenerative osteoarthritis of the left hip is redemonstrated. Knee radiographs with no acute fracture or dislocation of bilateral knees. left tib-fib radiograph with no acute fracture or dislocation of the left tibia- fibula. Labs with Troponin, 676, BNP 428. Cr 1.5, AST 68, Cr 3 EKG sinus rhythm with significant baseline artifact and prolonged QT 05/20: Troponin decreased. CK elevated creatinine LFTs unchanged. Still significant pain and some weakness left hip. Able to ambulate with physical therapy needs significant assistance, unable to move further than from bed to chair without complete assistance. MRI pelvis ordered. D/w radiology and ortho 05/21: Febrile to 101.6 F overnight. She still notes no worsening shortness of breath cough or upper airway symptoms. She has been taking her home O2 off and 0.102 desaturates to 84% left hip pain is a little better. MRI reviewed there is some motion degradation no occult fracture detected but with severe osteoarthrosis of left hip noted. Addendum: COVID 19 rapid positive 05/23 Patient evaluated examined at bedside. Resting in bed still requiring significant amount of supplemental O2. Needs hip injection per PMR team will wait till oxygen status little more stable before requesting this through interventional radiology. Otherwise continue COVID treatment. Plan of care discussed with bedside RN. 05/24 Patient eval and examind at bedside. Still on high O2 requirements, wean as tolerated. Continue covid treatment. Plan discussed with bedside RN. 05/25 Patient evaluated examined at bedside. Still too much oxygen. Wean as tolerated. Otherwise continue current. Too much oxygen for injection still. 05/26 Patient seen and examined at bedside. Still on pretty high oxygen but we will go ahead and try for hip injection today. Continue current COVID treatment otherwise. 05/27 Eval andexamined at bedside. Says hip somewhat better from injection. Continue covid treatment. 05/29 eval and examined at bedside. able to tolerate some movement today. continue covid treatment. 05/30 patient eval and examined at bedside. on 8L NC. she was in good spirits. continue covid treatment. Vitals/I&O Vitals/I&O: Vital Signs Date Time Temp Pulse Resp B/P (MAP) Pulse Ox O2 Delivery O2 Flow Rate FiO2 05/30/21 19:33 Mask 6.0 05/30/21 19:00 99.6 99 20 154/69 (97) 95 99.6 I & O 05/29/21 05/29/2105/30/22 15:00 23:00 07:00 Intake Total 1050 ml 300 ml Output Total 1400 ml 1000 ml Balance 1050 ml -1100 ml -1000 ml Physical Exam General: Alert, Oriented X3, Cooperative, mild distress Heart: Regular rate Abdomen: Normal bowel sounds, Soft, No tenderness, No hepatosplenomegaly, No masses Extremities: No clubbing, No cyanosis, No edema, Normal pulses, Other (left hip pain on external and internal rotation, pain on straight leg raise on left) Skin: Other (bilateral knee abrasions) Labs Labs: Laboratory Tests Test 05/30/21 06:30 White Blood Count 15.4 x10^3/uL (4.0-11.0) Red Blood Count 3.44 x10^6/uL (3.50-5.40) Hemoglobin 10.1 g/dL (12.0-15.5) Hematocrit 31.8 % (36.0-47.0) Mean Corpuscular Volume 93 fL (79-100) Mean Corpuscular Hemoglobin 29 pg (25-35) Mean Corpuscular Hemoglobin Concent 32 g/dL (31-37) Red Cell Distribution Width 15.1 % (11.5-14.5) Platelet Count 300 x10^3/uL (140-400) Neutrophils (%) (Auto) 81 % (31-73) Lymphocytes (%) (Auto) 11 % (24-48) Monocytes (%) (Auto) 8 % (0-9) Eosinophils (%) (Auto) 0 % (0-3) Basophils (%) (Auto) 0 % (0-3) Neutrophils # (Auto) 12.4 x10^3/uL (1.8-7.7) Lymphocytes # (Auto) 1.7 x10^3/uL (1.0-4.8) Monocytes # (Auto) 1.2 x10^3/uL (0.0-1.1) Eosinophils # (Auto) 0.0 x10^3/uL (0.0-0.7) Basophils # (Auto) 0.0 x10^3/uL (0.0-0.2) Sodium Level 145 mmol/L (136-145) Potassium Level 4.0 mmol/L (3.5-5.1) Chloride Level 102 mmol/L (98-107) Carbon Dioxide Level 36 mmol/L (21-32) Anion Gap 7 (6-14) Blood Urea Nitrogen 24 mg/dL (7-20) Creatinine 1.0 mg/dL (0.6-1.0) Estimated GFR (Cockcroft-Gault) 65.8 Glucose Level 107 mg/dL (70-99) Calcium Level 8.9 mg/dL (8.5-10.1) Comment Review of Relevant I have reviewed the following items robb (where applicable) has been applied. Medications: Current Medications Medications (Trade) Dose Ordered Sig/Teresa Route PRN Reason Start Time Stop Time Status Last Admin Dose Admin Hydrochlorothiazide (Microzide) 12.5 mg 1X ONCE PO 05/30/21 10:00 05/30/21 10:01 DC 05/30/21 10:06 Justifications for Admission Other Justification LAURA AMAYA MD May 30, 2021 23:57
[2021-05-31] MEDS: IV 1/2 NORMAL SALINE 1,000 ML IV SCH ×2 (00:55→14:15)
[2021-05-31 03:31] VITALS: BP 124/60
[2021-05-31] MEDS: HEPARIN for SUB-Q USE 5,000 UNIT/ML VIAL. SQ SCH ×3 (05:54→22:00)
[2021-05-31 07:00] VITALS: BP 124/52
[2021-05-31] MEDS: IPRATROPIUM/ALBUTEROL 20/100mcg/INH INHALER. INH SCH ×4 (08:17→20:00)
[2021-05-31] MEDS: hydroCHLOROthiazide 25 MG TABLET PO SCH (08:22)
[2021-05-31] MEDS: DOXYCYCLINE HYCLATE 100 MG TABLET PO SCH (08:23)
[2021-05-31] MEDS: ZINC SULFATE 220 MG CAPSULE. PO SCH (08:23)
[2021-05-31] MEDS: LACTOBACILLUS RHAMNOSUS GG 1 CAPSULE. PO SCH ×2 (08:23→21:00)
[2021-05-31] MEDS: THIAMINE 100 MG TABLET. PO SCH (08:23)
[2021-05-31] MEDS: FLUTICASONE FUROATE 100mcg/INH ELLIPTA INHALER. INH SCH (08:24)
[2021-05-31] MEDS: ASCORBIC ACID 500 MG TABLET PO SCH (08:24)
[2021-05-31] MEDS: LOSARTAN POTASSIUM 50 MG TABLET. PO SCH (08:24)
--- NOTE | 2021-05-31 10:01 | PDOC ---
PROGRESS NOTES Date of Service DATE: 05/31/21 TIME: 09:58 Subjective Subjective No new complaints. Nursing reports of urinary incontinence. Objective Objective Vital Signs Date Time Temp Pulse Resp B/P (MAP) Pulse Ox O2 Delivery O2 Flow Rate FiO2 05/31/21 08:24 73 124/52 05/31/21 07:00 99.1 17 93 Simple Mask 8.0 99.1 Intake and Output 05/31/21 07:00 Intake Total 540 ml Balance 540 ml Intake Oral 540 ml # Voids 2 Physical Exam Physical Exam She requires 2 person assist for transfers as per nursing staff. She continues to require oxygen by nasal mask. Plan Plan of Care To continue present rehab efforts as tolerated. Comment Review of Relevant I have reviewed the following items robb (where applicable) has been applied. Labs Laboratory Tests Test 05/30/21 06:30 White Blood Count 15.4 x10^3/uL (4.0-11.0) Red Blood Count 3.44 x10^6/uL (3.50-5.40) Hemoglobin 10.1 g/dL (12.0-15.5) Hematocrit 31.8 % (36.0-47.0) Mean Corpuscular Volume 93 fL (79-100) Mean Corpuscular Hemoglobin 29 pg (25-35) Mean Corpuscular Hemoglobin Concent 32 g/dL (31-37) Red Cell Distribution Width 15.1 % (11.5-14.5) Platelet Count 300 x10^3/uL (140-400) Neutrophils (%) (Auto) 81 % (31-73) Lymphocytes (%) (Auto) 11 % (24-48) Monocytes (%) (Auto) 8 % (0-9) Eosinophils (%) (Auto) 0 % (0-3) Basophils (%) (Auto) 0 % (0-3) Neutrophils # (Auto) 12.4 x10^3/uL (1.8-7.7) Lymphocytes # (Auto) 1.7 x10^3/uL (1.0-4.8) Monocytes # (Auto) 1.2 x10^3/uL (0.0-1.1) Eosinophils # (Auto) 0.0 x10^3/uL (0.0-0.7) Basophils # (Auto) 0.0 x10^3/uL (0.0-0.2) Sodium Level 145 mmol/L (136-145) Potassium Level 4.0 mmol/L (3.5-5.1) Chloride Level 102 mmol/L (98-107) Carbon Dioxide Level 36 mmol/L (21-32) Anion Gap 7 (6-14) Blood Urea Nitrogen 24 mg/dL (7-20) Creatinine 1.0 mg/dL (0.6-1.0) Estimated GFR (Cockcroft-Gault) 65.8 Glucose Level 107 mg/dL (70-99) Calcium Level 8.9 mg/dL (8.5-10.1) Microbiology 05/21/21 Blood Culture - Final, Complete NO GROWTH AFTER 5 DAYS 05/19/21 Urine Culture - Final, Complete Medications Current Medications Acetaminophen/ Hydrocodone Bitart (Lortab 5/325) 1 tab 1X ONCE PO ; Start 05/19/21 at 13:00; Stop 05/19/21 at 13:01; Status DC Naproxen (Naprosyn) 500 mg 1X ONCE PO Last administered on 05/19/21at 13:30; Start 05/19/21 at 13:30; Stop 05/19/21 at 13:31; Status DC Ondansetron HCl (Zofran) 4 mg PRN Q4HRS PRN IVP NAUSEA/VOMITING; Start 05/19/21 at 16:30 Acetaminophen (Tylenol) 650 mg PRN Q6HRS PRN PO MILD PAIN / TEMP > 100.3'F Last administered on 05/21/21at 03:27; Start 05/19/21 at 16:30 Psyllium Hydrophilic Mucilloid (Metamucil Fiber Packet) 1 pkt QHS PO Last administered on 05/30/21at 21:52; Start 05/19/21 at 21:00 Sodium Chloride 1,000 ml @ 75 mls/hr [id number] IV Last administered on 05/20/21at 05:52; Start 05/19/21 at 17:15; Stop 05/20/21 at 17:14; Status DC Hydralazine HCl (Apresoline Inj) 10 mg PRN Q4HRS PRN IVP ELEVATED BP, SEE COMMENTS Last administered on 05/30/21at 05:07; Start 05/20/21 at 01:15 Tramadol HCl (Ultram) 50 mg PRN Q6HRS PRN PO PAIN MOD/SEVERE; Start 05/20/21 at 01:15 Guaifenesin (Robitussin Dm) 10 ml PRN Q6HRS PRN PO COUGH Last administered on 05/29/21at 09:12; Start 05/20/21 at 01:15 Albuterol/ Ipratropium (Duoneb) 3 ml RTQID NEB Last administered on 05/21/21at 11:26; Start 05/20/21 at 08:00; Stop 05/21/21 at 22:49; Status DC Albuterol Sulfate (Ventolin Neb Soln) 2.5 mg PRN Q4HRS PRN NEB SHORTNESS OF BREATH; Start 05/20/21 at 01:15 Budesonide (Pulmicort) 0.5 mg RTBID NEB Last administered on 05/21/21at 07:54; Start 05/20/21 at 08:00; Stop 05/21/21 at 22:49; Status DC Heparin Sodium (Porcine) (Heparin Sodium) 5,000 unit Q8HRS SQ Last administered on 05/31/21at 05:54; Start 05/20/21 at 06:00 Bupivacaine HCl (Sensorcaine-Mpf 0.25%) 10 ml 1X ONCE IJ ; Start 05/20/21 at 10:15; Stop 05/20/21 at 10:20; Status DC Lidocaine HCl (Lidocaine 1% 20ml Vial) 20 ml 1X ONCE INJ ; Start 05/20/21 at 10:15; Stop 05/20/21 at 10:20; Status DC Iohexol (Omnipaque 300 Mg/ml) 50 ml 1X ONCE IJ ; Start 05/20/21 at 10:15; Stop 05/20/21 at 10:20; Status DC Info (CONTRAST GIVEN -- Rx MONITORING) 1 each PRN DAILY PRN MC SEE COMMENTS; Start 05/20/21 at 10:30; Stop 05/22/21 at 10:29; Status DC Methylprednisolone Acetate (DEPO-Medrol 40MG VIAL) 40 mg STK-MED ONCE .ROUTE ; Start 05/20/21 at 12:33; Stop 05/20/21 at 12:33; Status DC Bupivacaine HCl (Sensorcaine Mpf 0.5%) 10 ml STK-MED ONCE .ROUTE ; Start 05/20/21 at 12:38; Stop 05/20/21 at 12:38; Status DC Ceftriaxone Sodium (Rocephin) 1 gm Q24H IVP Last administered on 05/30/21at 14:54; Start 05/21/21 at 13:00 Doxycycline Hyclate (Vibra-Tab) 100 mg BID PO Last administered on 05/31/21at 08:23; Start 05/21/21 at 13:00 Remdesivir 200 mg/ Sodium Chloride 210 ml @ 210 mls/hr 1X ONCE IV Last admini stered on 05/21/21at 17:10; Start 05/21/21 at 15:00; Stop 05/21/21 at 15:59; Status DC Remdesivir 100 mg/ Sodium Chloride 230 ml @ 460 mls/hr Q24H IV Last administered on 05/25/21at 13:25; Start 05/22/21 at 14:00; Stop 05/25/21 at 14:29; Status DC Dexamethasone Sodium Phosphate (Decadron) 6 mg DAILY IVP Last administered on 05/30/21at 09:03; Start 05/21/21 at 14:00; Stop 05/30/21 at 09:01; Status DC Zinc Sulfate (Orazinc) 220 mg DAILY PO Last administered on 05/31/21at 08:23; Start 05/22/21 at 09:00 Thiamine Mononitrate (Vitamin B-1) 100 mg DAILY PO Last administered on 05/31/21at 08:23; Start 05/22/21 at 09:00 Ascorbic Acid (Vitamin C) 500 mg DAILY PO Last administered on 05/31/21at 08:24; Start 05/22/21 at 09:00 Fluticasone Furoate (ARNUITY 100mcg ELLIPTA) 1 puff DAILY INH Last administered on 05/31/21at 08:24; Start 05/22/21 at 09:00 Albuterol/ Ipratropium (Combivent Respimat 20-100 Mcg) 1 puff RTQID INH Last administered on 05/31/21at 08:17; Start 05/22/21 at 08:00 Sodium Chloride 1,000 ml @ 100 mls/hr Q10H IV Last administered on 05/26/21at 06:40; Start 05/22/21 at 14:45; Stop 05/26/21 at 14:02; Status DC Lactobacillus Rhamnosus (Culturelle) 1 cap BID PO Last administered on 05/31/21at 08:23; Start 05/23/21 at 21:00 Methylprednisolone Acetate (DEPO-Medrol 80MG VIAL) 80 mg STK-MED ONCE .ROUTE ; Start 05/26/21 at 13:32; Stop 05/26/21 at 13:33; Status DC Iohexol (Omnipaque 300 Mg/ml) 50 ml STK-MED ONCE .ROUTE ; Start 05/26/21 at 13:33; Stop 05/26/21 at 13:33; Status DC Bupivacaine HCl (Sensorcaine Mpf 0.5%) 10 ml STK-MED ONCE .ROUTE ; Start 05/26/21 at 13:33; Stop 05/26/21 at 13:33; Status DC Lidocaine HCl (Lidocaine 1% 20ml Vial) 20 ml STK-MED ONCE .ROUTE ; Start 05/26/21 at 13:34; Stop 05/26/21 at 13:34; Status DC Bupivacaine HCl (Sensorcaine Mpf 0.5%) 10 ml 1X ONCE IJ ; Start 05/26/21 at 13:45; Stop 05/26/21 at 13:46; Status DC Sodium Chloride 1,000 ml @ 75 mls/hr [id number] IV Last administered on 05/29/21at 00:38; Start 05/26/21 at 14:15 Losartan Potassium (Cozaar) 50 mg DAILY PO Last administered on 05/31/21at 08:24; Start 05/29/21 at 12:00 Non-Formulary Medication (Mometasone/ Formoterol (Dulera 200 Mcg/5 Mcg Inhaler)) 2 puff BID INH ; Start 05/29/21 at 21:00; Status UNV Albuterol Sulfate (Ventolin Neb Soln) 2.5 mg Q6HRS NEB ; Start 05/29/21 at 12:00; Stop 05/29/21 at 11:46; Status DC Budesonide (Pulmicort) 0.5 mg RTBID NEB ; Start 05/29/21 at 12:00; Stop 05/29/21 at 11:46; Status DC Hydrochlorothiazide (Microzide) 12.5 mg DAILY PO Last administered on 05/30/21at 09:09; Start 05/29/21 at 12:00; Stop 05/30/21 at 09:36; Status DC Hydrochlorothiazide (Hydrodiuril) 25 mg DAILY PO Last administered on 05/31/21at 08:22; Start 05/31/21 at 09:00 Hydrochlorothiazide (Microzide) 12.5 mg 1X ONCE PO Last administered on 05/30/21at 10:06; Start 05/30/21 at 10:00; Stop 05/30/21 at 10:01; Status DC Active Scripts Active Reported Dulera 200 Mcg/5 Mcg Inhaler (Mometasone/Formoterol) 13 Gm Hfa.aer.ad 2 Puff INH BID Irbesartan-Hctz 150-12.5 Mg Tb (Irbesartan/Hydrochlorothiazide) 1 Each Tablet 1 Tab PO DAILY Naproxen 500 Mg Tablet 1 Tab PO BID Vitals/I & O Vital Sign - Last 24 Hours 05/30/21 05/30/21 05/30/21 05/30/21 11:00 15:00 19:00 19:33 Temp 97.4 97.8 99.6 97.4 97.8 99.6 Pulse 79 99 99 Resp 19 19 20 B/P (MAP) 140/59 (86) 124/56 (78) 154/69 (97) Pulse Ox 95 91 95 O2 Delivery Simple Mask Simple Mask Mask O2 Flow Rate 8.0 8.0 6.0 05/30/21 05/31/21 05/31/21 05/31/21 23:00 03:31 07:00 08:24 Temp 98.0 98.9 99.1 98.0 98.9 99.1 Pulse 75 66 73 73 Resp 16 18 17 B/P (MAP) 116/58 (77) 124/60 (81) 124/52 (76) 124/52 Pulse Ox 96 95 93 O2 Delivery Room Air Simple Mask O2 Flow Rate 8.0 Intake and Output 05/30/21 05/30/21 05/31/21 15:00 23:00 07:00 Intake Total 300 ml 240 ml Balance 300 ml 240 ml Justifications for Admission Other Justification NUSRAT CHARLES MD May 31, 2021 10:01
--- NOTE | 2021-05-31 10:46 | PDOC ---
PULMONARY PROGRESS NOTES DATE: 05/31/21 TIME: 10:41 Subjective Patient is currently feeling better, no paradoxical breathing, comfortable in bed and currently on 5LNC. Vitals Vital Signs Date Time Temp Pulse Resp B/P (MAP) Pulse Ox O2 Delivery O2 Flow Rate FiO2 05/31/21 08:24 73 124/52 05/31/21 07:00 99.1 17 93 Simple Mask 8.0 99.1 Comments visual exam completed no distress nc at rrr no accessory muscle use abd obese' no rash Labs Laboratory Tests Test 05/30/21 06:30 White Blood Count 15.4 x10^3/uL (4.0-11.0) Red Blood Count 3.44 x10^6/uL (3.50-5.40) Hemoglobin 10.1 g/dL (12.0-15.5) Hematocrit 31.8 % (36.0-47.0) Mean Corpuscular Volume 93 fL (79-100) Mean Corpuscular Hemoglobin 29 pg (25-35) Mean Corpuscular Hemoglobin Concent 32 g/dL (31-37) Red Cell Distribution Width 15.1 % (11.5-14.5) Platelet Count 300 x10^3/uL (140-400) Neutrophils (%) (Auto) 81 % (31-73) Lymphocytes (%) (Auto) 11 % (24-48) Monocytes (%) (Auto) 8 % (0-9) Eosinophils (%) (Auto) 0 % (0-3) Basophils (%) (Auto) 0 % (0-3) Neutrophils # (Auto) 12.4 x10^3/uL (1.8-7.7) Lymphocytes # (Auto) 1.7 x10^3/uL (1.0-4.8) Monocytes # (Auto) 1.2 x10^3/uL (0.0-1.1) Eosinophils # (Auto) 0.0 x10^3/uL (0.0-0.7) Basophils # (Auto) 0.0 x10^3/uL (0.0-0.2) Sodium Level 145 mmol/L (136-145) Potassium Level 4.0 mmol/L (3.5-5.1) Chloride Level 102 mmol/L (98-107) Carbon Dioxide Level 36 mmol/L (21-32) Anion Gap 7 (6-14) Blood Urea Nitrogen 24 mg/dL (7-20) Creatinine 1.0 mg/dL (0.6-1.0) Estimated GFR (Cockcroft-Gault) 65.8 Glucose Level 107 mg/dL (70-99) Calcium Level 8.9 mg/dL (8.5-10.1) Medications Active Scripts Medications Dose Route/Sig Max Daily Dose Days Date Category Dulera 200 Mcg/5 Mcg Inhaler (Mometasone/Formoterol) 13 Gm Hfa.aer.ad 2 Puff INH BID 05/20/21 Reported Irbesartan-Hctz 150-12.5 Mg Tb (Irbesartan/Hydrochlorothiazide) 1 Each Tablet 1 Tab PO DAILY 05/20/21 Reported Naproxen 500 Mg Tablet 1 Tab PO BID 05/20/21 Reported Impression . IMPRESSION: 1. Acute on chronic hypoxic respiratory failure secondary to COVID-19 viral pneumonia/ early ARDS/ALI 2. Underlying suspected obesity hypoventilation syndrome and obstructive sleep apnea. 3. Underlying chronic obstructive pulmonary disease. 4. Abnormal chest x-ray as discussed above. 5. Severe osteoarthritis. 6. Severe protein-calorie malnutrition. Plan . RECOMMENDATIONS: 1. titrate fio2 to keep saturation 90%. now 02 5lpm 2. BiPAP prn 3. Avoid hyperoxia. 4. Continue dexamethasone for 10 days. Completed. 5. Empiric antibiotics, doxycycline and Rocephin. 6. Heparin for DVT prophylaxis. 7. We will follow along with you. ALO WALLACE MD May 31, 2021 10:46
[2021-05-31 11:00] VITALS: BP 135/60
[2021-05-31] MEDS: cefTRIAXone IV Push 1 GM VIAL. IVP SCH (12:37)
[2021-05-31 15:00] VITALS: BP 123/62
[2021-05-31 19:00] VITALS: BP 142/72
[2021-05-31] MEDS: PSYLLIUM HUSK (SUGAR FREE) 1 PKT PACKET PO SCH (21:00)
[2021-05-31 23:00] VITALS: BP 130/60
[2021-06-01 03:00] VITALS: BP 115/57
[2021-06-01] MEDS: IV 1/2 NORMAL SALINE 1,000 ML IV SCH (03:35)
[2021-06-01] MEDS: HEPARIN for SUB-Q USE 5,000 UNIT/ML VIAL. SQ SCH ×3 (05:58→21:31)
[2021-06-01 07:00] VITALS: BP 126/65
--- NOTE | 2021-06-01 09:08 | PDOC ---
[facility] PROGRESS NOTE Date of Service DOS: 118 late entry Chief Complaint Chief Complaint A/P: Intractable left hip pain - severe OA noted. With weakness after fall r/o occult fracture via MRI, will d/w ortho and PMR physicians Left leg weakness - no other neuro deficits, weakness is due to pain. Ortho and PMR consulted Unable to walk - due to left leg weakness, fall Anemia - will check iron JOSE - likely vasomotor nephropathy, will hold ARB/HCTZ, monitor renal function Transaminitis - as with JOSE may be rhabdo related Fall at home - with localized bruising. PT for gait training and assessment for safety Elevated troponin - possibly related to rhabdo. Will trend. Consult cardiology COPD - on home O2. Having asthmatic bronchitis, will cont dulera prn. Given her fever will start empiric rocephin and doxycycline and obtain influenza and COVID 19 swabs Chronic hypoxic respiratory failure - possibly acutely worsening, Will monitor pulse ox checks HTN - hold ARB/HCTZ. May start amlodipine if BP increases Bilateral knee abrasions - local wound care COVID 19 - addendum: Rapid covid 19 positive. Decadron, remdesivir, transfer to covid unit FEN - Regular diet PPX - heparin FULL CODE Dispo - inpatient History of Present Illness History of Present Illness Ms Kwan is a 71yo female with PMHx COPD on home O2, HTN, morbid obesity and osteoarthritis who comes to ED accompanied by her son for progressive weakness and left hip pain after a fall. She fell trying to get out of bed to go to the bathroom, slid off the bed and didn't make it to the bathroom, could not stand due to left leg weakness. She called EMS to get up. She has had left leg weakness for the past 2 days prior to arrival and has been mostly in bed. 2 days prior to presentation fell on the way to the bathroom and had both knees splay outward, has some abrasions on bilateral knees. Since then she has had pain and weakness in her left hip, can't bear weight on it. She notes previously she was seen outpatient for severe left hip OA and had excellent improvement for over a year with corticosteroid injection. Pelvis with no acute fracture or dislocation of the pelvis and left hip. Severe degenerative osteoarthritis of the left hip is redemonstrated. Knee radiographs with no acute fracture or dislocation of bilateral knees. left tib-fib radiograph with no acute fracture or dislocation of the left tibia- fibula. Labs with Troponin, 676, BNP 428. Cr 1.5, AST 68, Cr 3 EKG sinus rhythm with significant baseline artifact and prolonged QT 05/20: Troponin decreased. CK elevated creatinine LFTs unchanged. Still significant pain and some weakness left hip. Able to ambulate with physical therapy needs significant assistance, unable to move further than from bed to chair without complete assistance. MRI pelvis ordered. D/w radiology and ortho 05/21: Febrile to 101.6 F overnight. She still notes no worsening shortness of breath cough or upper airway symptoms. She has been taking her home O2 off and 0.102 desaturates to 84% left hip pain is a little better. MRI reviewed there is some motion degradation no occult fracture detected but with severe osteoarthrosis of left hip noted. Addendum: COVID 19 rapid positive 05/23 Patient evaluated examined at bedside. Resting in bed still requiring significant amount of supplemental O2. Needs hip injection per PMR team will wait till oxygen status little more stable before requesting this through interventional radiology. Otherwise continue COVID treatment. Plan of care discussed with bedside RN. 05/24 Patient eval and examind at bedside. Still on high O2 requirements, wean as tolerated. Continue covid treatment. Plan discussed with bedside RN. 05/25 Patient evaluated examined at bedside. Still too much oxygen. Wean as tolerated. Otherwise continue current. Too much oxygen for injection still. 05/26 Patient seen and examined at bedside. Still on pretty high oxygen but we will go ahead and try for hip injection today. Continue current COVID treatment otherwise. 05/27 Eval andexamined at bedside. Says hip somewhat better from injection. Continue covid treatment. 05/29 eval and examined at bedside. able to tolerate some movement today. continue covid treatment. 05/30 patient eval and examined at bedside. on 8L NC. she was in good spirits. continue covid treatment. 05/31 Patient evaluated and examined at bedside. Oxygenation improving. Mobility improving as well. Hopeful for placement this week. Vitals/I&O Vitals/I&O: Vital Signs Date Time Temp Pulse Resp B/P (MAP) Pulse Ox O2 Delivery O2 Flow Rate FiO2 06/01/21 07:00 97.4 65 19 126/65 (85) 100 Simple Mask 4.0 97.4 I & O 05/31/21 05/31/21 06/01/21 15:00 23:00 07:00 Intake Total 400 ml Output Total 1100 ml 300 ml Balance -1100 ml 100 ml Physical Exam General: Alert, Oriented X3, Cooperative, mild distress Heart: Regular rate Abdomen: Normal bowel sounds, Soft, No tenderness, No hepatosplenomegaly, No masses Extremities: No clubbing, No cyanosis, No edema, Normal pulses, Other (left hip pain on external and internal rotation, pain on straight leg raise on left) Skin: Other (bilateral knee abrasions) Comment Review of Relevant I have reviewed the following items robb (where applicable) has been applied. Justifications for Admission Other Justification LAURA AMAYA MD Jun 01, 2021 09:08
--- NOTE | 2021-06-01 09:13 | PDOC ---
PROGRESS NOTES Date of Service DATE: 06/01/21 TIME: 09:11 Subjective Subjective No new complaints. Objective Objective Vital Signs Date Time Temp Pulse Resp B/P (MAP) Pulse Ox O2 Delivery O2 Flow Rate FiO2 06/01/21 07:00 97.4 65 19 126/65 (85) 100 Simple Mask 4.0 97.4 Intake and Output 06/01/21 07:00 Intake Total 400 ml Output Total 1400 ml Balance -1000 ml Intake Oral 400 ml Output Urine Total 1400 ml # Voids 2 # Bowel Movements 1 Physical Exam Physical Exam She is awake ,supine in bed and using oxygen by nasal mask and she continues to get up with nursing and therapy but she continues to require significant physical assistance fro transfers. Her physical endurance is low. Plan Plan of Care To continue present rehab efforts as tolerated and to SNF when medically stable. Comment Review of Relevant I have reviewed the following items robb (where applicable) has been applied. Labs Microbiology 05/21/21 Blood Culture - Final, Complete NO GROWTH AFTER 5 DAYS 05/19/21 Urine Culture - Final, Complete Medications Current Medications Acetaminophen/ Hydrocodone Bitart (Lortab 5/325) 1 tab 1X ONCE PO ; Start 05/19/21 at 13:00; Stop 05/19/21 at 13:01; Status DC Naproxen (Naprosyn) 500 mg 1X ONCE PO Last administered on 05/19/21at 13:30; Start 05/19/21 at 13:30; Stop 05/19/21 at 13:31; Status DC Ondansetron HCl (Zofran) 4 mg PRN Q4HRS PRN IVP NAUSEA/VOMITING; Start 05/19/21 at 16:30 Acetaminophen (Tylenol) 650 mg PRN Q6HRS PRN PO MILD PAIN / TEMP > 100.3'F Last administered on 05/21/21at 03:27; Start 05/19/21 at 16:30 Psyllium Hydrophilic Mucilloid (Metamucil Fiber Packet) 1 pkt QHS PO Last administered on 05/30/21at 21:52; Start 05/19/21 at 21:00 Sodium Chloride 1,000 ml @ 75 mls/hr [id number] IV Last administered on 05/20/21at 05:52; Start 05/19/21 at 17:15; Stop 05/20/21 at 17:14; Status DC Hydralazine HCl (Apresoline Inj) 10 mg PRN Q4HRS PRN IVP ELEVATED BP, SEE COMMENTS Last administered on 05/30/21at 05:07; Start 05/20/21 at 01:15 Tramadol HCl (Ultram) 50 mg PRN Q6HRS PRN PO PAIN MOD/SEVERE; Start 05/20/21 at 01:15 Guaifenesin (Robitussin Dm) 10 ml PRN Q6HRS PRN PO COUGH Last administered on 05/29/21at 09:12; Start 05/20/21 at 01:15 Albuterol/ Ipratropium (Duoneb) 3 ml RTQID NEB Last administered on 05/21/21at 11:26; Start 05/20/21 at 08:00; Stop 05/21/21 at 22:49; Status DC Albuterol Sulfate (Ventolin Neb Soln) 2.5 mg PRN Q4HRS PRN NEB SHORTNESS OF BREATH; Start 05/20/21 at 01:15 Budesonide (Pulmicort) 0.5 mg RTBID NEB Last administered on 05/21/21at 07:54; Start 05/20/21 at 08:00; Stop 05/21/21 at 22:49; Status DC Heparin Sodium (Porcine) (Heparin Sodium) 5,000 unit Q8HRS SQ Last administered on 06/01/21at 05:58; Start 05/20/21 at 06:00 Bupivacaine HCl (Sensorcaine-Mpf 0.25%) 10 ml 1X ONCE IJ ; Start 05/20/21 at 10:15; Stop 05/20/21 at 10:20; Status DC Lidocaine HCl (Lidocaine 1% 20ml Vial) 20 ml 1X ONCE INJ ; Start 05/20/21 at 10:15; Stop 05/20/21 at 10:20; Status DC Iohexol (Omnipaque 300 Mg/ml) 50 ml 1X ONCE IJ ; Start 05/20/21 at 10:15; Stop 05/20/21 at 10:20; Status DC Info (CONTRAST GIVEN -- Rx MONITORING) 1 each PRN DAILY PRN MC SEE COMMENTS; Start 05/20/21 at 10:30; Stop 05/22/21 at 10:29; Status DC Methylprednisolone Acetate (DEPO-Medrol 40MG VIAL) 40 mg STK-MED ONCE .ROUTE ; Start 05/20/21 at 12:33; Stop 05/20/21 at 12:33; Status DC Bupivacaine HCl (Sensorcaine Mpf 0.5%) 10 ml STK-MED ONCE .ROUTE ; Start 05/20/21 at 12:38; Stop 05/20/21 at 12:38; Status DC Ceftriaxone Sodium (Rocephin) 1 gm Q24H IVP Last administered on 05/31/21at 12:37; Start 05/21/21 at 13:00; Stop 05/31/21 at 13:25; Status DC Doxycycline Hyclate (Vibra-Tab) 100 mg BID PO Last administered on 05/31/21at 08:23; Start 05/21/21 at 13:00; Stop 05/31/21 at 13:26; Status DC Remdesivir 200 mg/ Sodium Chloride 210 ml @ 210 mls/hr 1X ONCE IV Last administered on 05/21/21at 17:10; Start 05/21/21 at 15:00; Stop 05/21/21 at 15:59; Status DC Remdesivir 100 mg/ Sodium Chloride 230 ml @ 460 mls/hr Q24H IV Last administered on 05/25/21at 13:25; Start 05/22/21 at 14:00; Stop 05/25/21 at 14:29; Status DC Dexamethasone Sodium Phosphate (Decadron) 6 mg DAILY IVP Last administered on 05/30/21at 09:03; Start 05/21/21 at 14:00; Stop 05/30/21 at 09:01; Status DC Zinc Sulfate (Orazinc) 220 mg DAILY PO Last administered on 05/31/21at 08:23; Start 05/22/21 at 09:00 Thiamine Mononitrate (Vitamin B-1) 100 mg DAILY PO Last administered on 05/31/21at 08:23; Start 05/22/21 at 09:00 Ascorbic Acid (Vitamin C) 500 mg DAILY PO Last administered on 05/31/21at 08:24; Start 05/22/21 at 09:00 Fluticasone Furoate (ARNUITY 100mcg ELLIPTA) 1 puff DAILY INH Last administered on 05/31/21at 08:24; Start 05/22/21 at 09:00 Albuterol/ Ipratropium (Combivent Respimat 20-100 Mcg) 1 puff RTQID INH Last administered on 05/31/21at 20:00; Start 05/22/21 at 08:00 Sodium Chloride 1,000 ml @ 100 mls/hr Q10H IV Last administered on 05/26/21at 06:40; Start 05/22/21 at 14:45; Stop 05/26/21 at 14:02; Status DC Lactobacillus Rhamnosus (Culturelle) 1 cap BID PO Last administered on 05/31/21at 21:00; Start 05/23/21 at 21:00 Methylprednisolone Acetate (DEPO-Medrol 80MG VIAL) 80 mg STK-MED ONCE .ROUTE ; Start 05/26/21 at 13:32; Stop 05/26/21 at 13:33; Status DC Iohexol (Omnipaque 300 Mg/ml) 50 ml STK-MED ONCE .ROUTE ; Start 05/26/21 at 13:33; Stop 05/26/21 at 13:33; Status DC Bupivacaine HCl (Sensorcaine Mpf 0.5%) 10 ml STK-MED ONCE .ROUTE ; Start 05/26/21 at 13:33; Stop 05/26/21 at 13:33; Status DC Lidocaine HCl (Lidocaine 1% 20ml Vial) 20 ml STK-MED ONCE .ROUTE ; Start 05/26/21 at 13:34; Stop 05/26/21 at 13:34; Status DC Bupivacaine HCl (Sensorcaine Mpf 0.5%) 10 ml 1X ONCE IJ ; Start 05/26/21 at 13:45; Stop 05/26/21 at 13:46; Status DC Sodium Chloride 1,000 ml @ 75 mls/hr [id number] IV Last administered on 05/29/21at 00:38; Start 05/26/21 at 14:15; Stop 06/01/21 at 07:15; Status DC Losartan Potassium (Cozaar) 50 mg DAILY PO Last administered on 05/31/21at 08:24; Start 05/29/21 at 12:00 Non-Formulary Medication (Mometasone/ Formoterol (Dulera 200 Mcg/5 Mcg Inhaler)) 2 puff BID INH ; Start 05/29/21 at 21:00; Status UNV Albuterol Sulfate (Ventolin Neb Soln) 2.5 mg Q6HRS NEB ; Start 05/29/21 at 12:00; Stop 05/29/21 at 11:46; Status DC Budesonide (Pulmicort) 0.5 mg RTBID NEB ; Start 05/29/21 at 12:00; Stop 05/29/21 at 11:46; Status DC Hydrochlorothiazide (Microzide) 12.5 mg DAILY PO Last administered on 05/30/21at 09:09; Start 05/29/21 at 12:00; Stop 05/30/21 at 09:36; Status DC Hydrochlorothiazide (Hydrodiuril) 25 mg DAILY PO Last administered on 05/31/21at 08:22; Start 05/31/21 at 09:00 Hydrochlorothiazide (Microzide) 12.5 mg 1X ONCE PO Last administered on 05/30/21at 10:06; Start 05/30/21 at 10:00; Stop 05/30/21 at 10:01; Status DC Active Scripts Active Reported Dulera 200 Mcg/5 Mcg Inhaler (Mometasone/Formoterol) 13 Gm Hfa.aer.ad 2 Puff INH BID Irbesartan-Hctz 150-12.5 Mg Tb (Irbesartan/Hydrochlorothiazide) 1 Each Tablet 1 Tab PO DAILY Naproxen 500 Mg Tablet 1 Tab PO BID Vitals/I & O Vital Sign - Last 24 Hours 05/31/21 05/31/21 05/31/21 05/31/21 11:00 15:00 18:55 19:00 Temp 99.2 98.9 98.9 99.2 98.9 98.9 Pulse 76 78 75 Resp 19 16 20 B/P (MAP) 135/60 (85) 123/62 (82) 142/72 (95) Pulse Ox 95 99 100 O2 Delivery Simple Mask High Flow Nasal Cannula Mask Nasal Cannula O2 Flow Rate 8.0 8.0 6.0 8.0 05/31/21 06/01/21 06/01/21 23:00 03:00 07:00 Temp 98.8 98.6 97.4 98.8 98.6 97.4 Pulse 75 79 65 Resp 20 20 19 B/P (MAP) 130/60 (83) 115/57 (76) 126/65 (85) Pulse Ox 96 98 100 O2 Delivery Nasal Cannula Simple Mask O2 Flow Rate 8.0 4.0 Intake and Output 05/31/21 05/31/21 06/01/21 15:00 23:00 07:00 Intake Total 400 ml Output Total 1100 ml 300 ml Balance -1100 ml 100 ml Justifications for Admission Other Justification NUSRAT CHARLES MD Jun 01, 2021 09:13
[2021-06-01] MEDS: LACTOBACILLUS RHAMNOSUS GG 1 CAPSULE. PO SCH ×2 (10:23→21:30)
[2021-06-01] MEDS: ZINC SULFATE 220 MG CAPSULE. PO SCH (10:23)
[2021-06-01] MEDS: hydroCHLOROthiazide 25 MG TABLET PO SCH (10:23)
[2021-06-01] MEDS: THIAMINE 100 MG TABLET. PO SCH (10:23)
[2021-06-01] MEDS: IPRATROPIUM/ALBUTEROL 20/100mcg/INH INHALER. INH SCH ×4 (10:23→21:30)
[2021-06-01] MEDS: FLUTICASONE FUROATE 100mcg/INH ELLIPTA INHALER. INH SCH (10:23)
[2021-06-01] MEDS: LOSARTAN POTASSIUM 50 MG TABLET. PO SCH (10:24)
[2021-06-01] MEDS: ASCORBIC ACID 500 MG TABLET PO SCH (10:24)
[2021-06-01] MEDS ORDERED: HYDR-2145 PO (10:32)
--- NOTE | 2021-06-01 10:34 | SNU/HH DC ---
DISCHARGE ORDERS DISCHARGE INFORMATION: DISCHARGE DATE: Jun 01, 2021 CONDITION ON DISCHARGE: Stable CODE STATUS: Code Status: Full SENIOR CARE: SNF STAY <30 DAYS: Yes POST DISCHARGE ORDERS: ACTIVITY ORDERS: Activity as tolerated WEIGHT BEARING STATUS: As tolerated DIET AFTER DISCHARGE: Regular WOUND/INCISION CARE: Ice to area for comfort CHECKS AFTER DISCHARGE: CHECKS AFTER DISCHARGE: Check blood press - daily, Check your Temp as needed TREATMENT/EQUIPMENT ORDERS: ADAPTIVE EQUIPMENT NEEDED: Walker Physical Therapy For: Evalulation/Treatment Occupational Therapy For: Evaluation/Treatment DISCHARGE MEDICATIONS: Home Meds Active Scripts Hydrochlorothiazide (HYDROCHLOROTHIAZIDE TABLET ) 25 Mg Tablet, 25 MG PO DAILY for htn for 30 Days, #30 TAB Prov:LAURA AMAYA MD 06/01/21 Reported Medications Mometasone/Formoterol (DULERA 200 MCG/5 MCG INHALER) 13 Gm Hfa.aer.ad, 2 PUFF INH BID for asthma 05/20/21 Irbesartan/Hydrochlorothiazide (IRBESARTAN-HCTZ 150-12.5 MG TB) 1 Each Tablet, 1 TAB PO DAILY for HTN 05/20/21 Naproxen (NAPROXEN) 500 Mg Tablet, 1 TAB PO BID for pain 05/20/21 LAURA AMAYA MD Jun 01, 2021 10:34
[2021-06-01 11:00] VITALS: BP 132/63
--- NOTE | 2021-06-01 11:19 | PDOC ---
PULMONARY PROGRESS NOTES DATE: 06/01/21 TIME: 11:18 Subjective Patient is currently feeling better, no paradoxical breathing, comfortable in bed and currently on 4LNC. Vitals Vital Signs Date Time Temp Pulse Resp B/P (MAP) Pulse Ox O2 Delivery O2 Flow Rate FiO2 06/01/21 10:24 65 126/65 06/01/21 08:00 Nasal Cannula 4.0 06/01/21 07:00 97.4 19 100 97.4 Comments visual exam completed no distress nc at rrr no accessory muscle use abd obese' no rash Medications Active Scripts Medications Dose Route/Sig Max Daily Dose Days Date Category Dulera 200 Mcg/5 Mcg Inhaler (Mometasone/Formoterol) 13 Gm Hfa.aer.ad 2 Puff INH BID 05/20/21 Reported Irbesartan-Hctz 150-12.5 Mg Tb (Irbesartan/Hydrochlorothiazide) 1 Each Tablet 1 Tab PO DAILY 05/20/21 Reported Naproxen 500 Mg Tablet 1 Tab PO BID 05/20/21 Reported Impression . IMPRESSION: 1. Acute on chronic hypoxic respiratory failure secondary to COVID-19 viral pneumonia/ early ARDS/ALI 2. Underlying suspected obesity hypoventilation syndrome and obstructive sleep apnea. 3. Underlying chronic obstructive pulmonary disease. 4. Abnormal chest x-ray as discussed above. 5. Severe osteoarthritis. 6. Severe protein-calorie malnutrition. Plan . RECOMMENDATIONS: 1. titrate fio2 to keep saturation 90%. now 02 4lpm 2. BiPAP prn 3. Avoid hyperoxia. 4. Continue dexamethasone for 10 days. Completed. 5. Empiric antibiotics, doxycycline and Rocephin. 6. Heparin for DVT prophylaxis. 7. We will follow along with you. ALO WALLACE MD Jun 01, 2021 11:19
--- NOTE | 2021-06-01 13:10 | PDOC ---
[facility] PROGRESS NOTE Date of Service DOS: DATE: 06/01/21 TIME: 13:09 Chief Complaint Chief Complaint A/P: Intractable left hip pain - severe OA noted. With weakness after fall r/o occult fracture via MRI, will d/w ortho and PMR physicians Left leg weakness - no other neuro deficits, weakness is due to pain. Ortho and PMR consulted Unable to walk - due to left leg weakness, fall Anemia - will check iron JOSE - likely vasomotor nephropathy, will hold ARB/HCTZ, monitor renal function Transaminitis - as with JOSE may be rhabdo related Fall at home - with localized bruising. PT for gait training and assessment for safety Elevated troponin - possibly related to rhabdo. Will trend. Consult cardiology COPD - on home O2. Having asthmatic bronchitis, will cont dulera prn. Given her fever will start empiric rocephin and doxycycline and obtain influenza and COVID 19 swabs Chronic hypoxic respiratory failure - possibly acutely worsening, Will monitor pulse ox checks HTN - hold ARB/HCTZ. May start amlodipine if BP increases Bilateral knee abrasions - local wound care COVID 19 - addendum: Rapid covid 19 positive. Decadron, remdesivir, transfer to covid unit FEN - Regular diet PPX - heparin FULL CODE Dispo - inpatient History of Present Illness History of Present Illness Ms Kwan is a 71yo female with PMHx COPD on home O2, HTN, morbid obesity and osteoarthritis who comes to ED accompanied by her son for progressive weakness and left hip pain after a fall. She fell trying to get out of bed to go to the bathroom, slid off the bed and didn't make it to the bathroom, could not stand due to left leg weakness. She called EMS to get up. She has had left leg weakness for the past 2 days prior to arrival and has been mostly in bed. 2 days prior to presentation fell on the way to the bathroom and had both knees splay outward, has some abrasions on bilateral knees. Since then she has had pain and weakness in her left hip, can't bear weight on it. She notes previously she was seen outpatient for severe left hip OA and had excellent improvement for over a year with corticosteroid injection. Pelvis with no acute fracture or dislocation of the pelvis and left hip. Severe degenerative osteoarthritis of the left hip is redemonstrated. Knee radiographs with no acute fracture or dislocation of bilateral knees. left tib-fib radiograph with no acute fracture or dislocation of the left tibia- fibula. Labs with Troponin, 676, BNP 428. Cr 1.5, AST 68, Cr 3 EKG sinus rhythm with significant baseline artifact and prolonged QT 05/20: Troponin decreased. CK elevated creatinine LFTs unchanged. Still significant pain and some weakness left hip. Able to ambulate with physical therapy needs significant assistance, unable to move further than from bed to chair without complete assistance. MRI pelvis ordered. D/w radiology and ortho 05/21: Febrile to 101.6 F overnight. She still notes no worsening shortness of breath cough or upper airway symptoms. She has been taking her home O2 off and 0.102 desaturates to 84% left hip pain is a little better. MRI reviewed there is some motion degradation no occult fracture detected but with severe osteoarthrosis of left hip noted. Addendum: COVID 19 rapid positive 05/23 Patient evaluated examined at bedside. Resting in bed still requiring significant amount of supplemental O2. Needs hip injection per PMR team will wait till oxygen status little more stable before requesting this through interventional radiology. Otherwise continue COVID treatment. Plan of care discussed with bedside RN. 05/24 Patient eval and examind at bedside. Still on high O2 requirements, wean as tolerated. Continue covid treatment. Plan discussed with bedside RN. 05/25 Patient evaluated examined at bedside. Still too much oxygen. Wean as tolerated. Otherwise continue current. Too much oxygen for injection still. 05/26 Patient seen and examined at bedside. Still on pretty high oxygen but we will go ahead and try for hip injection today. Continue current COVID treatment otherwise. 05/27 Eval andexamined at bedside. Says hip somewhat better from injection. Continue covid treatment. 05/29 eval and examined at bedside. able to tolerate some movement today. continue covid treatment. 05/30 patient eval and examined at bedside. on 8L NC. she was in good spirits. continue covid treatment. 05/31 Patient evaluated and examined at bedside. Oxygenation improving. Mobility improving as well. Hopeful for placement this week. 06/01 Patient evaluated and examined at bedside. On 4 L nasal cannula. Mobility continues to improve. Ready for discharge whenever a bed is found. Vitals/I&O Vitals/I&O: Vital Signs Date Time Temp Pulse Resp B/P (MAP) Pulse Ox O2 Delivery O2 Flow Rate FiO2 06/01/21 10:24 65 126/65 06/01/21 08:00 Nasal Cannula 4.0 06/01/21 07:00 97.4 19 100 97.4 I & O 05/31/21 05/31/21 06/01/21 15:00 23:00 07:00 Intake Total 400 ml Output Total 1100 ml 300 ml Balance -1100 ml 100 ml Physical Exam General: Alert, Oriented X3, Cooperative, mild distress Heart: Regular rate Abdomen: Normal bowel sounds, Soft, No tenderness, No hepatosplenomegaly, No masses Extremities: No clubbing, No cyanosis, No edema, Normal pulses, Other (left hip pain on external and internal rotation, pain on straight leg raise on left) Skin: Other (bilateral knee abrasions) Comment Review of Relevant I have reviewed the following items robb (where applicable) has been applied. Justifications for Admission Other Justification LAURA AMAYA MD Jun 01, 2021 13:10
[2021-06-01 15:00] VITALS: BP 116/80
[2021-06-01 19:48] VITALS: BP 130/43
[2021-06-01] MEDS: PSYLLIUM HUSK (SUGAR FREE) 1 PKT PACKET PO SCH ×2 (21:00→21:30)
[2021-06-01 23:10] VITALS: BP 113/51
[2021-06-02 03:29] VITALS: BP 128/60
[2021-06-02] MEDS: HEPARIN for SUB-Q USE 5,000 UNIT/ML VIAL. SQ SCH ×3 (06:13→21:55)
[2021-06-02 07:00] VITALS: BP 133/68
[2021-06-02] MEDS: IPRATROPIUM/ALBUTEROL 20/100mcg/INH INHALER. INH SCH ×4 (08:43→21:53)
[2021-06-02] MEDS: FLUTICASONE FUROATE 100mcg/INH ELLIPTA INHALER. INH SCH (08:43)
[2021-06-02] MEDS: ASCORBIC ACID 500 MG TABLET PO SCH (08:44)
[2021-06-02] MEDS: LOSARTAN POTASSIUM 50 MG TABLET. PO SCH (08:44)
[2021-06-02] MEDS: LACTOBACILLUS RHAMNOSUS GG 1 CAPSULE. PO SCH ×2 (08:44→21:54)
[2021-06-02] MEDS: hydroCHLOROthiazide 25 MG TABLET PO SCH (08:44)
[2021-06-02] MEDS: THIAMINE 100 MG TABLET. PO SCH (08:44)
[2021-06-02] MEDS: ZINC SULFATE 220 MG CAPSULE. PO SCH (08:44)
--- NOTE | 2021-06-02 08:56 | PDOC ---
PROGRESS NOTES Date of Service DATE: 06/02/21 TIME: 08:50 Subjective Subjective She feels better. Objective Objective Vital Signs Date Time Temp Pulse Resp B/P (MAP) Pulse Ox O2 Delivery O2 Flow Rate FiO2 06/02/21 08:44 67 133/68 06/02/21 07:00 98.1 18 98 Nasal Cannula 6.0 98.1 Intake and Output 06/02/21 07:00 Output Total 500 ml Balance -500 ml Output Urine Total 500 ml Physical Exam Physical Exam She is alert,supine in bed with head end propped up and eating breakfast and is receiving oxygen by nasal canula and as per nursing she got up and walked at bedside this AM and she is transferring with minimal assistance. Plan Plan of Care To SNF when medically stable. Comment Review of Relevant I have reviewed the following items robb (where applicable) has been applied. Labs Microbiology 05/21/21 Blood Culture - Final, Complete NO GROWTH AFTER 5 DAYS 05/19/21 Urine Culture - Final, Complete Medications Current Medications Acetaminophen/ Hydrocodone Bitart (Lortab 5/325) 1 tab 1X ONCE PO ; Start 05/19/21 at 13:00; Stop 05/19/21 at 13:01; Status DC Naproxen (Naprosyn) 500 mg 1X ONCE PO Last administered on 05/19/21at 13:30; Start 05/19/21 at 13:30; Stop 05/19/21 at 13:31; Status DC Ondansetron HCl (Zofran) 4 mg PRN Q4HRS PRN IVP NAUSEA/VOMITING; Start 05/19/21 at 16:30 Acetaminophen (Tylenol) 650 mg PRN Q6HRS PRN PO MILD PAIN / TEMP > 100.3'F Last administered on 05/21/21at 03:27; Start 05/19/21 at 16:30 Psyllium Hydrophilic Mucilloid (Metamucil Fiber Packet) 1 pkt QHS PO Last administered on 05/30/21at 21:52; Start 05/19/21 at 21:00 Sodium Chloride 1,000 ml @ 75 mls/hr [id number] IV Last administered on 05/20/21at 05:52; Start 05/19/21 at 17:15; Stop 05/20/21 at 17:14; Status DC Hydralazine HCl (Apresoline Inj) 10 mg PRN Q4HRS PRN IVP ELEVATED BP, SEE COMMENTS Last administered on 05/30/21at 05:07; Start 05/20/21 at 01:15 Tramadol HCl (Ultram) 50 mg PRN Q6HRS PRN PO PAIN MOD/SEVERE; Start 05/20/21 at 01:15 Guaifenesin (Robitussin Dm) 10 ml PRN Q6HRS PRN PO COUGH Last administered on 05/29/21at 09:12; Start 05/20/21 at 01:15 Albuterol/ Ipratropium (Duoneb) 3 ml RTQID NEB Last administered on 05/21/21at 11:26; Start 05/20/21 at 08:00; Stop 05/21/21 at 22:49; Status DC Albuterol Sulfate (Ventolin Neb Soln) 2.5 mg PRN Q4HRS PRN NEB SHORTNESS OF BREATH; Start 05/20/21 at 01:15 Budesonide (Pulmicort) 0.5 mg RTBID NEB Last administered on 05/21/21at 07:54; Start 05/20/21 at 08:00; Stop 05/21/21 at 22:49; Status DC Heparin Sodium (Porcine) (Heparin Sodium) 5,000 unit Q8HRS SQ Last administered on 06/02/21at 06:13; Start 05/20/21 at 06:00 Bupivacaine HCl (Sensorcaine-Mpf 0.25%) 10 ml 1X ONCE IJ ; Start 05/20/21 at 10:15; Stop 05/20/21 at 10:20; Status DC Lidocaine HCl (Lidocaine 1% 20ml Vial) 20 ml 1X ONCE INJ ; Start 05/20/21 at 10:15; Stop 05/20/21 at 10:20; Status DC Iohexol (Omnipaque 300 Mg/ml) 50 ml 1X ONCE IJ ; Start 05/20/21 at 10:15; Stop 05/20/21 at 10:20; Status DC Info (CONTRAST GIVEN -- Rx MONITORING) 1 each PRN DAILY PRN MC SEE COMMENTS; Start 05/20/21 at 10:30; Stop 05/22/21 at 10:29; Status DC Methylprednisolone Acetate (DEPO-Medrol 40MG VIAL) 40 mg STK-MED ONCE .ROUTE ; Start 05/20/21 at 12:33; Stop 05/20/21 at 12:33; Status DC Bupivacaine HCl (Sensorcaine Mpf 0.5%) 10 ml STK-MED ONCE .ROUTE ; Start 05/20/21 at 12:38; Stop 05/20/21 at 12:38; Status DC Ceftriaxone Sodium (Rocephin) 1 gm Q24H IVP Last administered on 05/31/21at 12:37; Start 05/21/21 at 13:00; Stop 05/31/21 at 13:25; Status DC Doxycycline Hyclate (Vibra-Tab) 100 mg BID PO Last administered on 05/31/21at 08:23; Start 05/21/21 at 13:00; Stop 05/31/21 at 13:26; Status DC Remdesivir 200 mg/ Sodium Chloride 210 ml @ 210 mls/hr 1X ONCE IV Last administered on 05/21/21at 17:10; Start 05/21/21 at 15:00; Stop 05/21/21 at 15:59; Status DC Remdesivir 100 mg/ Sodium Chloride 230 ml @ 460 mls/hr Q24H IV Last administered on 05/25/21at 13:25; Start 05/22/21 at 14:00; Stop 05/25/21 at 14:29; Status DC Dexamethasone Sodium Phosphate (Decadron) 6 mg DAILY IVP Last administered on 05/30/21at 09:03; Start 05/21/21 at 14:00; Stop 05/30/21 at 09:01; Status DC Zinc Sulfate (Orazinc) 220 mg DAILY PO Last administered on 06/02/21at 08:44; Start 05/22/21 at 09:00 Thiamine Mononitrate (Vitamin B-1) 100 mg DAILY PO Last administered on 2at 08:44; Start 05/22/21 at 09:00 Ascorbic Acid (Vitamin C) 500 mg DAILY PO Last administered on 06/02/21at 08:44; Start 05/22/21 at 09:00 Fluticasone Furoate (ARNUITY 100mcg ELLIPTA) 1 puff DAILY INH Last administered on 06/02/21at 08:43; Start 05/22/21 at 09:00 Albuterol/ Ipratropium (Combivent Respimat 20-100 Mcg) 1 puff RTQID INH Last administered on 06/02/21at 08:43; Start 05/22/21 at 08:00 Sodium Chloride 1,000 ml @ 100 mls/hr Q10H IV Last administered on 05/26/21at 06:40; Start 05/22/21 at 14:45; Stop 05/26/21 at 14:02; Status DC Lactobacillus Rhamnosus (Culturelle) 1 cap BID PO Last administered on 06/02/21at 08:44; Start 05/23/21 at 21:00 Methylprednisolone Acetate (DEPO-Medrol 80MG VIAL) 80 mg STK-MED ONCE .ROUTE ; Start 05/26/21 at 13:32; Stop 05/26/21 at 13:33; Status DC Iohexol (Omnipaque 300 Mg/ml) 50 ml STK-MED ONCE .ROUTE ; Start 05/26/21 at 13:33; Stop 05/26/21 at 13:33; Status DC Bupivacaine HCl (Sensorcaine Mpf 0.5%) 10 ml STK-MED ONCE .ROUTE ; Start 05/26/21 at 13:33; Stop 05/26/21 at 13:33; Status DC Lidocaine HCl (Lidocaine 1% 20ml Vial) 20 ml STK-MED ONCE .ROUTE ; Start 05/26/21 at 13:34; Stop 05/26/21 at 13:34; Status DC Bupivacaine HCl (Sensorcaine Mpf 0.5%) 10 ml 1X ONCE IJ ; Start 05/26/21 at 13:45; Stop 05/26/21 at 13:46; Status DC Sodium Chloride 1,000 ml @ 75 mls/hr [id number] IV Last administered on 05/29/21at 00:38; Start 05/26/21 at 14:15; Stop 06/01/21 at 07:15; Status DC Losartan Potassium (Cozaar) 50 mg DAILY PO Last administered on 06/02/21at 08:44; Start 05/29/21 at 12:00 Non-Formulary Medication (Mometasone/ Formoterol (Dulera 200 Mcg/5 Mcg Inhaler)) 2 puff BID INH ; Start 05/29/21 at 21:00; Status UNV Albuterol Sulfate (Ventolin Neb Soln) 2.5 mg Q6HRS NEB ; Start 05/29/21 at 12:00; Stop 05/29/21 at 11:46; Status DC Budesonide (Pulmicort) 0.5 mg RTBID NEB ; Start 05/29/21 at 12:00; Stop 05/29/21 at 11:46; Status DC Hydrochlorothiazide (Microzide) 12.5 mg DAILY PO Last administered on 05/30/21at 09:09; Start 05/29/21 at 12:00; Stop 05/30/21 at 09:36; Status DC Hydrochlorothiazide (Hydrodiuril) 25 mg DAILY PO Last administered on 06/02/21at 08:44; Start 05/31/21 at 09:00 Hydrochlorothiazide (Microzide) 12.5 mg 1X ONCE PO Last administered on 05/30/21at 10:06; Start 05/30/21 at 10:00; Stop 05/30/21 at 10:01; Status DC Active Scripts Active Hydrochlorothiazide Tablet (Hydrochlorothiazide) 25 Mg Tablet 25 Mg PO DAILY 30 Days Reported Dulera 200 Mcg/5 Mcg Inhaler (Mometasone/Formoterol) 13 Gm Hfa.aer.ad 2 Puff INH BID Irbesartan-Hctz 150-12.5 Mg Tb (Irbesartan/Hydrochlorothiazide) 1 Each Tablet 1 Tab PO DAILY Naproxen 500 Mg Tablet 1 Tab PO BID Vitals/I & O Vital Sign - Last 24 Hours 06/01/21 06/01/21 06/01/21 06/01/21 10:24 11:00 15:00 19:48 Temp 98.8 98.6 98.7 98.8 98.6 98.7 Pulse 65 71 87 81 Resp 18 17 20 B/P (MAP) 126/65 132/63 (86) 116/80 (92) 130/43 (72) Pulse Ox 92 95 100 O2 Delivery Nasal Cannula Nasal Cannula Simple Mask O2 Flow Rate 4.0 4.0 06/01/21 06/01/21 06/02/21 06/02/21 20:00 23:10 03:29 07:00 Temp 98.3 98.1 98.3 98.1 Pulse 86 75 67 Resp 18 18 18 B/P (MAP) 113/51 (71) 128/60 (82) 133/68 (89) Pulse Ox 97 95 98 O2 Delivery Mask Simple Mask Nasal Cannula Nasal Cannula O2 Flow Rate 6.0 4.0 6.0 6.0 06/02/21 08:44 Pulse 67 B/P (MAP) 133/68 Intake and Output 06/01/21 06/01/21 06/02/21 15:00 23:00 07:00 Output Total 500 ml Balance -500 ml Justifications for Admission Other Justification NUSRAT CHARLES MD Jun 02, 2021 08:56
--- NOTE | 2021-06-02 10:35 | PDOC ---
[facility] PROGRESS NOTE Date of Service DOS: DATE: 06/02/21 TIME: 10:34 Chief Complaint Chief Complaint A/P: Intractable left hip pain - severe OA noted. With weakness after fall r/o occult fracture via MRI, will d/w ortho and PMR physicians Left leg weakness - no other neuro deficits, weakness is due to pain. Ortho and PMR consulted Unable to walk - due to left leg weakness, fall Anemia - will check iron JOSE - likely vasomotor nephropathy, will hold ARB/HCTZ, monitor renal function Transaminitis - as with JOSE may be rhabdo related Fall at home - with localized bruising. PT for gait training and assessment for safety Elevated troponin - possibly related to rhabdo. Will trend. Consult cardiology COPD - on home O2. Having asthmatic bronchitis, will cont dulera prn. Given her fever will start empiric rocephin and doxycycline and obtain influenza and COVID 19 swabs Chronic hypoxic respiratory failure - possibly acutely worsening, Will monitor pulse ox checks HTN - hold ARB/HCTZ. May start amlodipine if BP increases Bilateral knee abrasions - local wound care COVID 19 - addendum: Rapid covid 19 positive. Decadron, remdesivir, transfer to covid unit FEN - Regular diet PPX - heparin FULL CODE Dispo - inpatient History of Present Illness History of Present Illness Ms Kwan is a 71yo female with PMHx COPD on home O2, HTN, morbid obesity and osteoarthritis who comes to ED accompanied by her son for progressive weakness and left hip pain after a fall. She fell trying to get out of bed to go to the bathroom, slid off the bed and didn't make it to the bathroom, could not stand due to left leg weakness. She called EMS to get up. She has had left leg weakness for the past 2 days prior to arrival and has been mostly in bed. 2 days prior to presentation fell on the way to the bathroom and had both knees splay outward, has some abrasions on bilateral knees. Since then she has had pain and weakness in her left hip, can't bear weight on it. She notes previously she was seen outpatient for severe left hip OA and had excellent improvement for over a year with corticosteroid injection. Pelvis with no acute fracture or dislocation of the pelvis and left hip. Severe degenerative osteoarthritis of the left hip is redemonstrated. Knee radiographs with no acute fracture or dislocation of bilateral knees. left tib-fib radiograph with no acute fracture or dislocation of the left tibia- fibula. Labs with Troponin, 676, BNP 428. Cr 1.5, AST 68, Cr 3 EKG sinus rhythm with significant baseline artifact and prolonged QT 05/20: Troponin decreased. CK elevated creatinine LFTs unchanged. Still significant pain and some weakness left hip. Able to ambulate with physical therapy needs significant assistance, unable to move further than from bed to chair without complete assistance. MRI pelvis ordered. D/w radiology and ortho 05/21: Febrile to 101.6 F overnight. She still notes no worsening shortness of breath cough or upper airway symptoms. She has been taking her home O2 off and 0.102 desaturates to 84% left hip pain is a little better. MRI reviewed there is some motion degradation no occult fracture detected but with severe osteoarthrosis of left hip noted. Addendum: COVID 19 rapid positive 05/23 Patient evaluated examined at bedside. Resting in bed still requiring significant amount of supplemental O2. Needs hip injection per PMR team will wait till oxygen status little more stable before requesting this through interventional radiology. Otherwise continue COVID treatment. Plan of care discussed with bedside RN. 05/24 Patient eval and examind at bedside. Still on high O2 requirements, wean as tolerated. Continue covid treatment. Plan discussed with bedside RN. 05/25 Patient evaluated examined at bedside. Still too much oxygen. Wean as tolerated. Otherwise continue current. Too much oxygen for injection still. 05/26 Patient seen and examined at bedside. Still on pretty high oxygen but we will go ahead and try for hip injection today. Continue current COVID treatment otherwise. 05/27 Eval andexamined at bedside. Says hip somewhat better from injection. Continue covid treatment. 05/29 eval and examined at bedside. able to tolerate some movement today. continue covid treatment. 05/30 patient eval and examined at bedside. on 8L NC. she was in good spirits. continue covid treatment. 05/31 Patient evaluated and examined at bedside. Oxygenation improving. Mobility improving as well. Hopeful for placement this week. 06/01 Patient evaluated and examined at bedside. On 4 L nasal cannula. Mobility continues to improve. Ready for discharge whenever a bed is found. 06/02 Evaluate examined at bedside. No problems or complaints. Ready for discharge once accepted to facility Vitals/I&O Vitals/I&O: Vital Signs Date Time Temp Pulse Resp B/P (MAP) Pulse Ox O2 Delivery O2 Flow Rate FiO2 06/02/21 08:44 67 133/68 06/02/21 08:00 Nasal Cannula 6.0 06/02/21 07:00 98.1 18 98 98.1 I & O 06/01/21 06/01/21 06/02/21 15:00 23:00 07:00 Output Total 500 ml Balance -500 ml Physical Exam General: Alert, Oriented X3, Cooperative, mild distress Heart: Regular rate Abdomen: Normal bowel sounds, Soft, No tenderness, No hepatosplenomegaly, No masses Extremities: No clubbing, No cyanosis, No edema, Normal pulses, Other (left hip pain on external and internal rotation, pain on straight leg raise on left) Skin: Other (bilateral knee abrasions) Comment Review of Relevant I have reviewed the following items robb (where applicable) has been applied. Justifications for Admission Other Justification LAURA AMAYA MD Jun 02, 2021 10:34
[2021-06-02 11:00] VITALS: BP 134/63
[2021-06-02 15:00] VITALS: BP 140/62
[2021-06-02 19:59] VITALS: BP 112/54
[2021-06-02] MEDS: PSYLLIUM HUSK (SUGAR FREE) 1 PKT PACKET PO SCH (21:53)
[2021-06-02 23:33] VITALS: BP 138/65
[2021-06-03] MEDS: HEPARIN for SUB-Q USE 5,000 UNIT/ML VIAL. SQ SCH ×3 (05:45→21:01)
[2021-06-03 07:00] VITALS: BP 127/60
[2021-06-03] MEDS: FLUTICASONE FUROATE 100mcg/INH ELLIPTA INHALER. INH SCH (08:12)
[2021-06-03] MEDS: IPRATROPIUM/ALBUTEROL 20/100mcg/INH INHALER. INH SCH ×4 (08:12→20:54)
[2021-06-03] MEDS: hydroCHLOROthiazide 25 MG TABLET PO SCH (08:12)
[2021-06-03] MEDS: LOSARTAN POTASSIUM 50 MG TABLET. PO SCH (08:12)
[2021-06-03] MEDS: LACTOBACILLUS RHAMNOSUS GG 1 CAPSULE. PO SCH ×2 (08:13→20:54)
[2021-06-03] MEDS: THIAMINE 100 MG TABLET. PO SCH (08:13)
[2021-06-03] MEDS: ZINC SULFATE 220 MG CAPSULE. PO SCH (08:13)
[2021-06-03] MEDS: ASCORBIC ACID 500 MG TABLET PO SCH (08:13)
--- NOTE | 2021-06-03 09:09 | PDOC ---
PROGRESS NOTES Date of Service DATE: 06/03/21 TIME: 09:06 Subjective Subjective No new complaints. Objective Objective Vital Signs Date Time Temp Pulse Resp B/P (MAP) Pulse Ox O2 Delivery O2 Flow Rate FiO2 06/03/21 08:12 72 127/60 06/03/21 07:00 98.0 16 94 Nasal Cannula 8.0 98.0 Intake and Output 06/03/21 07:00 Intake Total 460 ml Output Total 800 ml Balance -340 ml Intake Oral 460 ml Output Urine Total 800 ml # Voids 1 # Bowel Movements 1 Physical Exam Physical Exam She is alert,sitting on bedside commode and she continues to require large amounts of oxygen by nasal canula and requires moderate assistance for transfers and standby assistance for walking sort distances with roller walker and her physical endurance remains low. She is anemic. Plan Plan of Care To continue present rehab efforts as tolerated. Comment Review of Relevant I have reviewed the following items robb (where applicable) has been applied. Labs Microbiology 05/21/21 Blood Culture - Final, Complete NO GROWTH AFTER 5 DAYS 05/19/21 Urine Culture - Final, Complete Medications Current Medications Acetaminophen/ Hydrocodone Bitart (Lortab 5/325) 1 tab 1X ONCE PO ; Start 05/19/21 at 13:00; Stop 05/19/21 at 13:01; Status DC Naproxen (Naprosyn) 500 mg 1X ONCE PO Last administered on 05/19/21at 13:30; Start 05/19/21 at 13:30; Stop 05/19/21 at 13:31; Status DC Ondansetron HCl (Zofran) 4 mg PRN Q4HRS PRN IVP NAUSEA/VOMITING; Start 05/19/21 at 16:30 Acetaminophen (Tylenol) 650 mg PRN Q6HRS PRN PO MILD PAIN / TEMP > 100.3'F Last administered on 05/21/21at 03:27; Start 05/19/21 at 16:30 Psyllium Hydrophilic Mucilloid (Metamucil Fiber Packet) 1 pkt QHS PO Last administered on 06/02/21at 21:53; Start 05/19/21 at 21:00 Sodium Chloride 1,000 ml @ 75 mls/hr [id number] IV Last administered on 05/20/21at 05:52; Start 05/19/21 at 17:15; Stop 05/20/21 at 17:14; Status DC Hydralazine HCl (Apresoline Inj) 10 mg PRN Q4HRS PRN IVP ELEVATED BP, SEE COMMENTS Last administered on 05/30/21at 05:07; Start 05/20/21 at 01:15 Tramadol HCl (Ultram) 50 mg PRN Q6HRS PRN PO PAIN MOD/SEVERE; Start 05/20/21 at 01:15 Guaifenesin (Robitussin Dm) 10 ml PRN Q6HRS PRN PO COUGH Last administered on 05/29/21at 09:12; Start 05/20/21 at 01:15 Albuterol/ Ipratropium (Duoneb) 3 ml RTQID NEB Last administered on 05/21/21at 11:26; Start 05/20/21 at 08:00; Stop 05/21/21 at 22:49; Status DC Albuterol Sulfate (Ventolin Neb Soln) 2.5 mg PRN Q4HRS PRN NEB SHORTNESS OF BREATH; Start 05/20/21 at 01:15 Budesonide (Pulmicort) 0.5 mg RTBID NEB Last administered on 05/21/21at 07:54; Start 05/20/21 at 08:00; Stop 05/21/21 at 22:49; Status DC Heparin Sodium (Porcine) (Heparin Sodium) 5,000 unit Q8HRS SQ Last administered on 06/02/21at 21:55; Start 05/20/21 at 06:00 Bupivacaine HCl (Sensorcaine-Mpf 0.25%) 10 ml 1X ONCE IJ ; Start 05/20/21 at 10:15; Stop 05/20/21 at 10:20; Status DC Lidocaine HCl (Lidocaine 1% 20ml Vial) 20 ml 1X ONCE INJ ; Start 05/20/21 at 10:15; Stop 05/20/21 at 10:20; Status DC Iohexol (Omnipaque 300 Mg/ml) 50 ml 1X ONCE IJ ; Start 05/20/21 at 10:15; Stop 05/20/21 at 10:20; Status DC Info (CONTRAST GIVEN -- Rx MONITORING) 1 each PRN DAILY PRN MC SEE COMMENTS; Start 05/20/21 at 10:30; Stop 05/22/21 at 10:29; Status DC Methylprednisolone Acetate (DEPO-Medrol 40MG VIAL) 40 mg STK-MED ONCE .ROUTE ; Start 05/20/21 at 12:33; Stop 05/20/21 at 12:33; Status DC Bupivacaine HCl (Sensorcaine Mpf 0.5%) 10 ml STK-MED ONCE .ROUTE ; Start 05/20/21 at 12:38; Stop 05/20/21 at 12:38; Status DC Ceftriaxone Sodium (Rocephin) 1 gm Q24H IVP Last administered on 05/31/21at 12:37; Start 05/21/21 at 13:00; Stop 05/31/21 at 13:25; Status DC Doxycycline Hyclate (Vibra-Tab) 100 mg BID PO Last administered on 05/31/21at 08:23; Start 05/21/21 at 13:00; Stop 05/31/21 at 13:26; Status DC Remdesivir 200 mg/ Sodium Chloride 210 ml @ 210 mls/hr 1X ONCE IV Last administered on 05/21/21at 17:10; Start 05/21/21 at 15:00; Stop 05/21/21 at 15:59; Status DC Remdesivir 100 mg/ Sodium Chloride 230 ml @ 460 mls/hr Q24H IV Last administered on 05/25/21at 13:25; Start 05/22/21 at 14:00; Stop 05/25/21 at 14:29; Status DC Dexamethasone Sodium Phosphate (Decadron) 6 mg DAILY IVP Last administered on 05/30/21at 09:03; Start 05/21/21 at 14:00; Stop 05/30/21 at 09:01; Status DC Zinc Sulfate (Orazinc) 220 mg DAILY PO Last administered on 06/03/21at 08:13; Start 05/22/21 at 09:00 Thiamine Mononitrate (Vitamin B-1) 100 mg DAILY PO Last administered on 06/03/21at 08:13; Start 05/22/21 at 09:00 Ascorbic Acid (Vitamin C) 500 mg DAILY PO Last administered on 06/03/21at 08:13; Start 05/22/21 at 09:00 Fluticasone Furoate (ARNUITY 100mcg ELLIPTA) 1 puff DAILY INH Last administered on 06/03/21at 08:12; Start 05/22/21 at 09:00 Albuterol/ Ipratropium (Combivent Respimat 20-100 Mcg) 1 puff RTQID INH Last administered on 06/03/21at 08:12; Start 05/22/21 at 08:00 Sodium Chloride 1,000 ml @ 100 mls/hr Q10H IV Last administered on 05/26/21at 06:40; Start 05/22/21 at 14:45; Stop 05/26/21 at 14:02; Status DC Lactobacillus Rhamnosus (Culturelle) 1 cap BID PO Last administered on at 08:13; Start 05/23/21 at 21:00 Methylprednisolone Acetate (DEPO-Medrol 80MG VIAL) 80 mg STK-MED ONCE .ROUTE ; Start 05/26/21 at 13:32; Stop 05/26/21 at 13:33; Status DC Iohexol (Omnipaque 300 Mg/ml) 50 ml STK-MED ONCE .ROUTE ; Start 05/26/21 at 1 3:33; Stop 05/26/21 at 13:33; Status DC Bupivacaine HCl (Sensorcaine Mpf 0.5%) 10 ml STK-MED ONCE .ROUTE ; Start 05/26/21 at 13:33; Stop 05/26/21 at 13:33; Status DC Lidocaine HCl (Lidocaine 1% 20ml Vial) 20 ml STK-MED ONCE .ROUTE ; Start 05/26/21 at 13:34; Stop 05/26/21 at 13:34; Status DC Bupivacaine HCl (Sensorcaine Mpf 0.5%) 10 ml 1X ONCE IJ ; Start 05/26/21 at 13:45; Stop 05/26/21 at 13:46; Status DC Sodium Chloride 1,000 ml @ 75 mls/hr [id number] IV Last administered on 05/29/21at 00:38; Start 05/26/21 at 14:15; Stop 06/01/21 at 07:15; Status DC Losartan Potassium (Cozaar) 50 mg DAILY PO Last administered on 06/03/21at 08: 12; Start 05/29/21 at 12:00 Non-Formulary Medication (Mometasone/ Formoterol (Dulera 200 Mcg/5 Mcg Inhaler)) 2 puff BID INH ; Start 05/29/21 at 21:00; Status UNV Albuterol Sulfate (Ventolin Neb Soln) 2.5 mg Q6HRS NEB ; Start 05/29/21 at 12:00; Stop 05/29/21 at 11:46; Status DC Budesonide (Pulmicort) 0.5 mg RTBID NEB ; Start 05/29/21 at 12:00; Stop 05/29/21 at 11:46; Status DC Hydrochlorothiazide (Microzide) 12.5 mg DAILY PO Last administered on 05/30/21at 09:09; Start 05/29/21 at 12:00; Stop 05/30/21 at 09:36; Status DC Hydrochlorothiazide (Hydrodiuril) 25 mg DAILY PO Last administered on 06/03/21at 08:12; Start 05/31/21 at 09:00 Hydrochlorothiazide (Microzide) 12.5 mg 1X ONCE PO Last administered on 05/30/21at 10:06; Start 05/30/21 at 10:00; Stop 05/30/21 at 10:01; Status DC Active Scripts Active Hydrochlorothiazide Tablet (Hydrochlorothiazide) 25 Mg Tablet 25 Mg PO DAILY 30 Days Reported Dulera 200 Mcg/5 Mcg Inhaler (Mometasone/Formoterol) 13 Gm Hfa.aer.ad 2 Puff INH BID Irbesartan-Hctz 150-12.5 Mg Tb (Irbesartan/Hydrochlorothiazide) 1 Each Tablet 1 Tab PO DAILY Naproxen 500 Mg Tablet 1 Tab PO BID Vitals/I & O Vital Sign - Last 24 Hours 06/02/21 06/02/21 06/02/21 06/02/21 11:00 15:00 19:59 20:00 Temp 98.7 99.2 98.3 98.7 99.2 98.3 Pulse 72 86 74 Resp 19 20 18 B/P (MAP) 134/63 (86) 140/62 (88) 112/54 (73) Pulse Ox 92 90 92 O2 Delivery Nasal Cannula Nasal Cannula Simple Mask Nasal Cannula O2 Flow Rate 6.0 6.0 8.0 6.0 06/02/21 06/03/21 06/03/21 23:33 07:00 08:12 Temp 99.1 98.0 99.1 98.0 Pulse 77 72 72 Resp 16 16 B/P (MAP) 138/65 (89) 127/60 (82) 127/60 Pulse Ox 90 94 O2 Delivery Nasal Cannula Nasal Cannula O2 Flow Rate 8.0 8.0 Intake and Output 06/02/21 06/02/21 06/03/21 15:00 23:00 07:00 Intake Total 460 ml Output Total 800 ml Balance 460 ml -800 ml Justifications for Admission Other Justification NUSRAT CHARLES MD Jun 03, 2021 09:09
--- NOTE | 2021-06-03 09:54 | PDOC ---
PULMONARY PROGRESS NOTES DATE: 06/03/21 TIME: 09:52 Subjective Patient is reports feeling better, no paradoxical breathing, comfortable in bed aon 5LNC. Vitals Vital Signs Date Time Temp Pulse Resp B/P (MAP) Pulse Ox O2 Delivery O2 Flow Rate FiO2 06/03/21 08:30 Nasal Cannula 4.0 06/03/21 08:12 72 127/60 06/03/21 07:00 98.0 16 94 98.0 Comments visual exam completed no distress nc at rrr no accessory muscle use abd obese' no rash Medications Active Scripts Medications Dose Route/Sig Max Daily Dose Days Date Category Dulera 200 Mcg/5 Mcg Inhaler (Mometasone/Formoterol) 13 Gm Hfa.aer.ad 2 Puff INH BID 05/20/21 Reported Irbesartan-Hctz 150-12.5 Mg Tb (Irbesartan/Hydrochlorothiazide) 1 Each Tablet 1 Tab PO DAILY 05/20/21 Reported Naproxen 500 Mg Tablet 1 Tab PO BID 05/20/21 Reported Impression . IMPRESSION: 1. Acute on chronic hypoxic respiratory failure secondary to COVID-19 viral pneumonia/ early ARDS/ALI 2. Underlying suspected obesity hypoventilation syndrome and obstructive sleep apnea. 3. Underlying chronic obstructive pulmonary disease. 4. Abnormal chest x-ray as discussed above. 5. Severe osteoarthritis. 6. Severe protein-calorie malnutrition. Plan . RECOMMENDATIONS: 1. titrate fio2 to keep saturation 90%. now 02 4lpm 2. BiPAP prn 3. Avoid hyperoxia. 4. Continue dexamethasone for 10 days. Completed. 5. Empiric antibiotics, doxycycline and Rocephin. 6. Heparin for DVT prophylaxis. 7. We will follow along with you. ALO WALLACE MD Jun 03, 2021 09:54
[2021-06-03 11:00] VITALS: BP 118/57
--- NOTE | 2021-06-03 13:12 | PDOC ---
[facility] PROGRESS NOTE Date of Service DOS: DATE: 06/03/21 TIME: 13:10 Chief Complaint Chief Complaint A/P: Intractable left hip pain - severe OA noted. With weakness after fall r/o occult fracture via MRI, will d/w ortho and PMR physicians Left leg weakness - no other neuro deficits, weakness is due to pain. Ortho and PMR consulted Unable to walk - due to left leg weakness, fall Anemia - will check iron JOSE - likely vasomotor nephropathy, will hold ARB/HCTZ, monitor renal function Transaminitis - as with JOSE may be rhabdo related Fall at home - with localized bruising. PT for gait training and assessment for safety Elevated troponin - possibly related to rhabdo. Will trend. Consult cardiology COPD - on home O2. Having asthmatic bronchitis, will cont dulera prn. Given her fever will start empiric rocephin and doxycycline and obtain influenza and COVID 19 swabs Chronic hypoxic respiratory failure - possibly acutely worsening, Will monitor pulse ox checks HTN - hold ARB/HCTZ. May start amlodipine if BP increases Bilateral knee abrasions - local wound care COVID 19 - addendum: Rapid covid 19 positive. Decadron, remdesivir, transfer to covid unit FEN - Regular diet PPX - heparin FULL CODE Dispo - inpatient History of Present Illness History of Present Illness Ms Kwan is a 71yo female with PMHx COPD on home O2, HTN, morbid obesity and osteoarthritis who comes to ED accompanied by her son for progressive weakness and left hip pain after a fall. She fell trying to get out of bed to go to the bathroom, slid off the bed and didn't make it to the bathroom, could not stand due to left leg weakness. She called EMS to get up. She has had left leg weakness for the past 2 days prior to arrival and has been mostly in bed. 2 days prior to presentation fell on the way to the bathroom and had both knees splay outward, has some abrasions on bilateral knees. Since then she has had pain and weakness in her left hip, can't bear weight on it. She notes previously she was seen outpatient for severe left hip OA and had excellent improvement for over a year with corticosteroid injection. Pelvis with no acute fracture or dislocation of the pelvis and left hip. Severe degenerative osteoarthritis of the left hip is redemonstrated. Knee radiographs with no acute fracture or dislocation of bilateral knees. left tib-fib radiograph with no acute fracture or dislocation of the left tibia- fibula. Labs with Troponin, 676, BNP 428. Cr 1.5, AST 68, Cr 3 EKG sinus rhythm with significant baseline artifact and prolonged QT 05/20: Troponin decreased. CK elevated creatinine LFTs unchanged. Still significant pain and some weakness left hip. Able to ambulate with physical therapy needs significant assistance, unable to move further than from bed to chair without complete assistance. MRI pelvis ordered. D/w radiology and ortho 05/21: Febrile to 101.6 F overnight. She still notes no worsening shortness of breath cough or upper airway symptoms. She has been taking her home O2 off and 0.102 desaturates to 84% left hip pain is a little better. MRI reviewed there is some motion degradation no occult fracture detected but with severe osteoarthrosis of left hip noted. Addendum: COVID 19 rapid positive 05/23 Patient evaluated examined at bedside. Resting in bed still requiring significant amount of supplemental O2. Needs hip injection per PMR team will wait till oxygen status little more stable before requesting this through interventional radiology. Otherwise continue COVID treatment. Plan of care discussed with bedside RN. 05/24 Patient eval and examind at bedside. Still on high O2 requirements, wean as tolerated. Continue covid treatment. Plan discussed with bedside RN. 05/25 Patient evaluated examined at bedside. Still too much oxygen. Wean as tolerated. Otherwise continue current. Too much oxygen for injection still. 05/26 Patient seen and examined at bedside. Still on pretty high oxygen but we will go ahead and try for hip injection today. Continue current COVID treatment otherwise. 05/27 Eval andexamined at bedside. Says hip somewhat better from injection. Continue covid treatment. 05/29 eval and examined at bedside. able to tolerate some movement today. continue covid treatment. 05/30 patient eval and examined at bedside. on 8L NC. she was in good spirits. continue covid treatment. 05/31 Patient evaluated and examined at bedside. Oxygenation improving. Mobility improving as well. Hopeful for placement this week. 06/01 Patient evaluated and examined at bedside. On 4 L nasal cannula. Mobility continues to improve. Ready for discharge whenever a bed is found. 06/02 Evaluate examined at bedside. No problems or complaints. Ready for discharge once accepted to facility. 06/03/2021 No acute events overnight. Patient seen examined bedside. Patient saturating 94% on 4 L nasal cannula. Not dyspneic during my encounter. Patient's chart, labs, images were reviewed and discussed with RN Vitals/I&O Vitals/I&O: Vital Signs Date Time Temp Pulse Resp B/P (MAP) Pulse Ox O2 Delivery O2 Flow Rate FiO2 06/03/21 11:00 98.5 66 14 118/57 (77) 97 Nasal Cannula 4.0 98.5 I & O 06/02/21 06/02/21 06/03/21 15:00 23:00 07:00 Intake Total 460 ml Output Total 800 ml Balance 460 ml -800 ml Physical Exam General: Alert, Oriented X3, Cooperative, mild distress Heart: Regular rate Abdomen: Normal bowel sounds, Soft, No tenderness, No hepatosplenomegaly, No masses Extremities: No clubbing, No cyanosis, No edema, Normal pulses, Other (left hip pain on external and internal rotation, pain on straight leg raise on left) Skin: Other (bilateral knee abrasions) Comment Review of Relevant I have reviewed the following items robb (where applicable) has been applied. Justifications for Admission Other Justification IVETTE WILSON MD Jun 03, 2021 13:12
[2021-06-03 15:00] VITALS: BP 133/62
[2021-06-03] MEDS: ACETAMINOPHEN 325 MG TABLET. PO PRN (17:17)
[2021-06-03 19:00] VITALS: BP 128/59
[2021-06-03] MEDS: PSYLLIUM HUSK (SUGAR FREE) 1 PKT PACKET PO SCH (20:54)
[2021-06-03 22:52] VITALS: BP 114/63
[2021-06-04 02:42] VITALS: BP 129/60
[2021-06-04] MEDS: HEPARIN for SUB-Q USE 5,000 UNIT/ML VIAL. SQ SCH ×3 (05:23→21:09)
[2021-06-04 07:00] VITALS: BP 123/55
--- NOTE | 2021-06-04 09:41 | PDOC ---
PROGRESS NOTES Date of Service DATE: 06/04/21 TIME: 09:38 Subjective Subjective No new complaints. She admits left hip pain coming back to some degree. Objective Objective Vital Signs Date Time Temp Pulse Resp B/P (MAP) Pulse Ox O2 Delivery O2 Flow Rate FiO2 06/04/21 07:00 98.5 74 19 123/55 (77) 96 Nasal Cannula 4.0 98.5 Intake and Output 06/04/21 07:00 Intake Total 240 ml Balance 240 ml Intake Oral 240 ml # Voids 2 Physical Exam Physical Exam She is alert,supine in bed with oxygen by nasal canula and seems to be comfortable. Plan Plan of Care To SNF when medically stable. She needs left AMITA when orthopedics can proceed with it. Comment Review of Relevant I have reviewed the following items robb (where applicable) has been applied. Labs Laboratory Tests Test 06/02/21 10:14 Coronavirus (COVID-19)(PCR) Positive (NEGATIVE) Microbiology 05/21/21 Blood Culture - Final, Complete NO GROWTH AFTER 5 DAYS 05/19/21 Urine Culture - Final, Complete Medications Current Medications Acetaminophen/ Hydrocodone Bitart (Lortab 5/325) 1 tab 1X ONCE PO ; Start 05/19/21 at 13:00; Stop 05/19/21 at 13:01; Status DC Naproxen (Naprosyn) 500 mg 1X ONCE PO Last administered on 05/19/21at 13:30; Start 05/19/21 at 13:30; Stop 05/19/21 at 13:31; Status DC Ondansetron HCl (Zofran) 4 mg PRN Q4HRS PRN IVP NAUSEA/VOMITING; Start 05/19/21 at 16:30 Acetaminophen (Tylenol) 650 mg PRN Q6HRS PRN PO MILD PAIN / TEMP > 100.3'F Last administered on 06/03/21at 17:17; Start 05/19/21 at 16:30 Psyllium Hydrophilic Mucilloid (Metamucil Fiber Packet) 1 pkt QHS PO Last administered on 06/03/21at 20:54; Start 05/19/21 at 21:00 Sodium Chloride 1,000 ml @ 75 mls/hr [id number] IV Last administered on 05/20/21at 05:52; Start 05/19/21 at 17:15; Stop 05/20/21 at 17:14; Status DC Hydralazine HCl (Apresoline Inj) 10 mg PRN Q4HRS PRN IVP ELEVATED BP, SEE COMMENTS Last administered on 05/30/21at 05:07; Start 05/20/21 at 01:15 Tramadol HCl (Ultram) 50 mg PRN Q6HRS PRN PO PAIN MOD/SEVERE; Start 05/20/21 at 01:15 Guaifenesin (Robitussin Dm) 10 ml PRN Q6HRS PRN PO COUGH Last administered on 05/29/21at 09:12; Start 05/20/21 at 01:15 Albuterol/ Ipratropium (Duoneb) 3 ml RTQID NEB Last administered on 05/21/21at 11:26; Start 05/20/21 at 08:00; Stop 05/21/21 at 22:49; Status DC Albuterol Sulfate (Ventolin Neb Soln) 2.5 mg PRN Q4HRS PRN NEB SHORTNESS OF BREATH; Start 05/20/21 at 01:15 Budesonide (Pulmicort) 0.5 mg RTBID NEB Last administered on 05/21/21at 07:54; Start 05/20/21 at 08:00; Stop 05/21/21 at 22:49; Status DC Heparin Sodium (Porcine) (Heparin Sodium) 5,000 unit Q8HRS SQ Last administered on 06/04/21at 05:23; Start 05/20/21 at 06:00 Bupivacaine HCl (Sensorcaine-Mpf 0.25%) 10 ml 1X ONCE IJ ; Start 05/20/21 at 10:15; Stop 05/20/21 at 10:20; Status DC Lidocaine HCl (Lidocaine 1% 20ml Vial) 20 ml 1X ONCE INJ ; Start 05/20/21 at 10:15; Stop 05/20/21 at 10:20; Status DC Iohexol (Omnipaque 300 Mg/ml) 50 ml 1X ONCE IJ ; Start 05/20/21 at 10:15; Stop 05/20/21 at 10:20; Status DC Info (CONTRAST GIVEN -- Rx MONITORING) 1 each PRN DAILY PRN MC SEE COMMENTS; Start 05/20/21 at 10:30; Stop 05/22/21 at 10:29; Status DC Methylprednisolone Acetate (DEPO-Medrol 40MG VIAL) 40 mg STK-MED ONCE .ROUTE ; Start 05/20/21 at 12:33; Stop 05/20/21 at 12:33; Status DC Bupivacaine HCl (Sensorcaine Mpf 0.5%) 10 ml STK-MED ONCE .ROUTE ; Start 05/20/21 at 12:38; Stop 05/20/21 at 12:38; Status DC Ceftriaxone Sodium (Rocephin) 1 gm Q24H IVP Last administered on 05/31/21at 12:37; Start 05/21/21 at 13:00; Stop 05/31/21 at 13:25; Status DC Doxycycline Hyclate (Vibra-Tab) 100 mg BID PO Last administered on 05/31/21at 08:23; Start 05/21/21 at 13:00; Stop 05/31/21 at 13:26; Status DC Remdesivir 200 mg/ Sodium Chloride 210 ml @ 210 mls/hr 1X ONCE IV Last administered on 05/21/21at 17:10; Start 05/21/21 at 15:00; Stop 05/21/21 at 15:59; Status DC Remdesivir 100 mg/ Sodium Chloride 230 ml @ 460 mls/hr Q24H IV Last administered on 05/25/21at 13:25; Start 05/22/21 at 14:00; Stop 05/25/21 at 14:29; Status DC Dexamethasone Sodium Phosphate (Decadron) 6 mg DAILY IVP Last administered on 05/30/21at 09:03; Start 05/21/21 at 14:00; Stop 05/30/21 at 09:01; Status DC Zinc Sulfate (Orazinc) 220 mg DAILY PO Last administered on 06/03/21at 08:13; Start 05/22/21 at 09:00 Thiamine Mononitrate (Vitamin B-1) 100 mg DAILY PO Last administered on 06/03/21at 08:13; Start 05/22/21 at 09:00 Ascorbic Acid (Vitamin C) 500 mg DAILY PO Last administered on 06/03/21at 08:13; Start 05/22/21 at 09:00 Fluticasone Furoate (ARNUITY 100mcg ELLIPTA) 1 puff DAILY INH Last administered on 06/03/21at 08:12; Start 05/22/21 at 09:00 Albuterol/ Ipratropium (Combivent Respimat 20-100 Mcg) 1 puff RTQID INH Last administered on 06/03/21at 20:54; Start 05/22/21 at 08:00 Sodium Chloride 1,000 ml @ 100 mls/hr Q10H IV Last administered on 05/26/21at 06:40; Start 05/22/21 at 14:45; Stop 05/26/21 at 14:02; Status DC Lactobacillus Rhamnosus (Culturelle) 1 cap BID PO Last administered on 06/03/21at 20:54; Start 05/23/21 at 21:00 Methylprednisolone Acetate (DEPO-Medrol 80MG VIAL) 80 mg STK-MED ONCE .ROUTE ; Start 05/26/21 at 13:32; Stop 05/26/21 at 13:33; Status DC Iohexol (Omnipaque 300 Mg/ml) 50 ml STK-MED ONCE .ROUTE ; Start 05/26/21 at 13:33; Stop 05/26/21 at 13:33; Status DC Bupivacaine HCl (Sensorcaine Mpf 0.5%) 10 ml STK-MED ONCE .ROUTE ; Start 05/26/21 at 13:33; Stop 05/26/21 at 13:33; Status DC Lidocaine HCl (Lidocaine 1% 20ml Vial) 20 ml STK-MED ONCE .ROUTE ; Start 05/26/21 at 13:34; Stop 05/26/21 at 13:34; Status DC Bupivacaine HCl (Sensorcaine Mpf 0.5%) 10 ml 1X ONCE IJ ; Start 05/26/21 at 13:45; Stop 05/26/21 at 13:46; Status DC Sodium Chloride 1,000 ml @ 75 mls/hr [id number] IV Last administered on 05/29/21at 00:38; Start 05/26/21 at 14:15; Stop 06/01/21 at 07:15; Status DC Losartan Potassium (Cozaar) 50 mg DAILY PO Last administered on 06/03/21at 08:12; Start 05/29/21 at 12:00 Non-Formulary Medication (Mometasone/ Formoterol (Dulera 200 Mcg/5 Mcg Inhaler)) 2 puff BID INH ; Start 05/29/21 at 21:00; Status UNV Albuterol Sulfate (Ventolin Neb Soln) 2.5 mg Q6HRS NEB ; Start 05/29/21 at 12:00; Stop 05/29/21 at 11:46; Status DC Budesonide (Pulmicort) 0.5 mg RTBID NEB ; Start 05/29/21 at 12:00; Stop 05/29/21 at 11:46; Status DC Hydrochlorothiazide (Microzide) 12.5 mg DAILY PO Last administered on 05/30/21at 09:09; Start 05/29/21 at 12:00; Stop 05/30/21 at 09:36; Status DC Hydrochlorothiazide (Hydrodiuril) 25 mg DAILY PO Last administered on 06/03/21at 08:12; Start 05/31/21 at 09:00 Hydrochlorothiazide (Microzide) 12.5 mg 1X ONCE PO Last administered on 05/30/21at 10:06; Start 05/30/21 at 10:00; Stop 05/30/21 at 10:01; Status DC Active Scripts Active Hydrochlorothiazide Tablet (Hydrochlorothiazide) 25 Mg Tablet 25 Mg PO DAILY 30 Days Reported Dulera 200 Mcg/5 Mcg Inhaler (Mometasone/Formoterol) 13 Gm Hfa.aer.ad 2 Puff INH BID Irbesartan-Hctz 150-12.5 Mg Tb (Irbesartan/Hydrochlorothiazide) 1 Each Tablet 1 Tab PO DAILY Naproxen 500 Mg Tablet 1 Tab PO BID Vitals/I & O Vital Sign - Last 24 Hours 06/03/21 06/03/21 06/03/21 06/03/21 11:00 15:00 19:00 20:00 Temp 98.5 98.8 97.8 98.5 98.8 97.8 Pulse 66 78 96 Resp 14 14 18 B/P (MAP) 118/57 (77) 133/62 (85) 128/59 (82) Pulse Ox 97 94 93 O2 Delivery Nasal Cannula Nasal Cannula Nasal Cannula Nasal Cannula O2 Flow Rate 4.0 4.0 4.0 4.0 06/03/21 06/04/21 06/04/21 22:52 02:42 07:00 Temp 97.7 97.8 98.5 97.7 97.8 98.5 Pulse 89 80 74 Resp 19 18 19 B/P (MAP) 114/63 (80) 129/60 (83) 123/55 (77) Pulse Ox 94 94 96 O2 Delivery Room Air Nasal Cannula Nasal Cannula O2 Flow Rate 2.0 4.0 Intake and Output 06/03/21 06/03/21 06/04/21 15:00 23:00 07:00 Intake Total 240 ml Balance 240 ml Justifications for Admission Other Justification NUSRAT CHARLES MD Jun 04, 2021 09:41
[2021-06-04] MEDS: LACTOBACILLUS RHAMNOSUS GG 1 CAPSULE. PO SCH ×2 (09:43→21:01)
[2021-06-04] MEDS: LOSARTAN POTASSIUM 50 MG TABLET. PO SCH (09:43)
[2021-06-04] MEDS: hydroCHLOROthiazide 25 MG TABLET PO SCH (09:43)
[2021-06-04] MEDS: THIAMINE 100 MG TABLET. PO SCH (09:43)
[2021-06-04] MEDS: ASCORBIC ACID 500 MG TABLET PO SCH (09:43)
[2021-06-04] MEDS: ZINC SULFATE 220 MG CAPSULE. PO SCH (09:43)
[2021-06-04] MEDS: ACETAMINOPHEN 325 MG TABLET. PO PRN (09:44)
[2021-06-04] MEDS: IPRATROPIUM/ALBUTEROL 20/100mcg/INH INHALER. INH SCH ×4 (09:59→20:00)
[2021-06-04] MEDS: FLUTICASONE FUROATE 100mcg/INH ELLIPTA INHALER. INH SCH (09:59)
[2021-06-04 11:00] VITALS: BP 128/62
--- NOTE | 2021-06-04 12:28 | PDOC ---
[facility] PROGRESS NOTE Date of Service DOS: DATE: 06/04/21 TIME: 12:27 Chief Complaint Chief Complaint A/P: Intractable left hip pain - severe OA noted. With weakness after fall r/o occult fracture via MRI, will d/w ortho and PMR physicians Left leg weakness - no other neuro deficits, weakness is due to pain. Ortho and PMR consulted Unable to walk - due to left leg weakness, fall Anemia - will check iron JOSE - likely vasomotor nephropathy, will hold ARB/HCTZ, monitor renal function Transaminitis - as with JOSE may be rhabdo related Fall at home - with localized bruising. PT for gait training and assessment for safety Elevated troponin - possibly related to rhabdo. Will trend. Consult cardiology COPD - on home O2. Having asthmatic bronchitis, will cont dulera prn. Given her fever will start empiric rocephin and doxycycline and obtain influenza and COVID 19 swabs Chronic hypoxic respiratory failure - possibly acutely worsening, Will monitor pulse ox checks HTN - hold ARB/HCTZ. May start amlodipine if BP increases Bilateral knee abrasions - local wound care COVID 19 - addendum: Rapid covid 19 positive. Decadron, remdesivir, transfer to covid unit FEN - Regular diet PPX - heparin FULL CODE Dispo - inpatient History of Present Illness History of Present Illness Ms Kwan is a 71yo female with PMHx COPD on home O2, HTN, morbid obesity and osteoarthritis who comes to ED accompanied by her son for progressive weakness and left hip pain after a fall. She fell trying to get out of bed to go to the bathroom, slid off the bed and didn't make it to the bathroom, could not stand due to left leg weakness. She called EMS to get up. She has had left leg weakness for the past 2 days prior to arrival and has been mostly in bed. 2 days prior to presentation fell on the way to the bathroom and had both knees splay outward, has some abrasions on bilateral knees. Since then she has had pain and weakness in her left hip, can't bear weight on it. She notes previously she was seen outpatient for severe left hip OA and had excellent improvement for over a year with corticosteroid injection. Pelvis with no acute fracture or dislocation of the pelvis and left hip. Severe degenerative osteoarthritis of the left hip is redemonstrated. Knee radiographs with no acute fracture or dislocation of bilateral knees. left tib-fib radiograph with no acute fracture or dislocation of the left tibia- fibula. Labs with Troponin, 676, BNP 428. Cr 1.5, AST 68, Cr 3 EKG sinus rhythm with significant baseline artifact and prolonged QT 05/20: Troponin decreased. CK elevated creatinine LFTs unchanged. Still significant pain and some weakness left hip. Able to ambulate with physical therapy needs significant assistance, unable to move further than from bed to chair without complete assistance. MRI pelvis ordered. D/w radiology and ortho 05/21: Febrile to 101.6 F overnight. She still notes no worsening shortness of breath cough or upper airway symptoms. She has been taking her home O2 off and 0.102 desaturates to 84% left hip pain is a little better. MRI reviewed there is some motion degradation no occult fracture detected but with severe osteoarthrosis of left hip noted. Addendum: COVID 19 rapid positive 05/23 Patient evaluated examined at bedside. Resting in bed still requiring significant amount of supplemental O2. Needs hip injection per PMR team will wait till oxygen status little more stable before requesting this through interventional radiology. Otherwise continue COVID treatment. Plan of care discussed with bedside RN. 05/24 Patient eval and examind at bedside. Still on high O2 requirements, wean as tolerated. Continue covid treatment. Plan discussed with bedside RN. 05/25 Patient evaluated examined at bedside. Still too much oxygen. Wean as tolerated. Otherwise continue current. Too much oxygen for injection still. 05/26 Patient seen and examined at bedside. Still on pretty high oxygen but we will go ahead and try for hip injection today. Continue current COVID treatment otherwise. 05/27 Eval andexamined at bedside. Says hip somewhat better from injection. Continue covid treatment. 05/29 eval and examined at bedside. able to tolerate some movement today. continue covid treatment. 05/30 patient eval and examined at bedside. on 8L NC. she was in good spirits. continue covid treatment. 05/31 Patient evaluated and examined at bedside. Oxygenation improving. Mobility improving as well. Hopeful for placement this week. 06/01 Patient evaluated and examined at bedside. On 4 L nasal cannula. Mobility continues to improve. Ready for discharge whenever a bed is found. 06/02 Evaluate examined at bedside. No problems or complaints. Ready for discharge once accepted to facility. 06/03/2021 No acute events overnight. Patient seen examined bedside. Patient saturating 94% on 4 L nasal cannula. Not dyspneic during my encounter. Patient's chart, labs, images were reviewed and discussed with RN 06/04/2021 No acute events or night. Patient stable on 2 L nasal cannula and saturating 95%. [facility] an [facility] for SNF placement. Patient's chart, labs, images were reviewed and discussed with RN Vitals/I&O Vitals/I&O: Vital Signs Date Time Temp Pulse Resp B/P (MAP) Pulse Ox O2 Delivery O2 Flow Rate FiO2 06/04/21 09:43 74 123/55 06/04/21 08:00 Nasal Cannula 4.0 06/04/21 07:00 98.5 19 96 98.5 I & O 06/03/21 06/03/21 06/04/21 15:00 23:00 07:00 Intake Total 240 ml Balance 240 ml Physical Exam General: Alert, Oriented X3, Cooperative, mild distress Heart: Regular rate Abdomen: Normal bowel sounds, Soft, No tenderness, No hepatosplenomegaly, No masses Extremities: No clubbing, No cyanosis, No edema, Normal pulses, Other (left hip pain on external and internal rotation, pain on straight leg raise on left) Skin: Other (bilateral knee abrasions) Comment Review of Relevant I have reviewed the following items robb (where applicable) has been applied. Justifications for Admission Other Justification IVETTE WILSON MD Jun 04, 2021 12:28
--- NOTE | 2021-06-04 12:30 | SNU/HH DC ---
DISCHARGE ORDERS DISCHARGE INFORMATION: DISCHARGE DATE: Jun 01, 2021 CONDITION ON DISCHARGE: Stable CODE STATUS: Code Status: Full POST DISCHARGE ORDERS: ACTIVITY ORDERS: Activity as tolerated WEIGHT BEARING STATUS: As tolerated DIET AFTER DISCHARGE: Regular WOUND/INCISION CARE: Ice to area for comfort CHECKS AFTER DISCHARGE: CHECKS AFTER DISCHARGE: Check blood press - daily, Check your Temp as needed FOLLOW-UP: PHYSICIAN FOLLOW-UP: PCP within 2 weeks of discharge ADDITIONAL FOLLOW-UP: Needs orthopedic surgery eval for AMITA when COVID recovered TREATMENT/EQUIPMENT ORDERS: ADAPTIVE EQUIPMENT NEEDED: Walker Physical Therapy For: Evalulation/Treatment Occupational Therapy For: Evaluation/Treatment DISCHARGE MEDICATIONS: Home Meds Active Scripts Hydrochlorothiazide (HYDROCHLOROTHIAZIDE TABLET ) 25 Mg Tablet, 25 MG PO DAILY for htn for 30 Days, #30 TAB Prov:LAURA AMAYA MD 06/01/21 Reported Medications Mometasone/Formoterol (DULERA 200 MCG/5 MCG INHALER) 13 Gm Hfa.aer.ad, 2 PUFF INH BID for asthma 05/20/21 Irbesartan/Hydrochlorothiazide (IRBESARTAN-HCTZ 150-12.5 MG TB) 1 Each Tablet, 1 TAB PO DAILY for HTN 05/20/21 Naproxen (NAPROXEN) 500 Mg Tablet, 1 TAB PO BID for pain 05/20/21 IVETTE WILSON MD Jun 04, 2021 12:30
[2021-06-04 15:00] VITALS: BP 117/82
[2021-06-04 19:00] VITALS: BP 123/51
[2021-06-04] MEDS: PSYLLIUM HUSK (SUGAR FREE) 1 PKT PACKET PO SCH (21:01)
[2021-06-04 23:00] VITALS: BP 145/71
[2021-06-05 03:08] VITALS: BP 127/61
[2021-06-05] MEDS: HEPARIN for SUB-Q USE 5,000 UNIT/ML VIAL. SQ SCH ×3 (06:36→21:14)
[2021-06-05 07:00] VITALS: BP 124/86
[2021-06-05] MEDS: FLUTICASONE FUROATE 100mcg/INH ELLIPTA INHALER. INH SCH (09:00)
[2021-06-05] MEDS: IPRATROPIUM/ALBUTEROL 20/100mcg/INH INHALER. INH SCH ×4 (09:10→20:00)
[2021-06-05] MEDS: THIAMINE 100 MG TABLET. PO SCH (09:11)
[2021-06-05] MEDS: ZINC SULFATE 220 MG CAPSULE. PO SCH (09:11)
[2021-06-05] MEDS: ASCORBIC ACID 500 MG TABLET PO SCH (09:11)
[2021-06-05] MEDS: hydroCHLOROthiazide 25 MG TABLET PO SCH (09:11)
[2021-06-05] MEDS: LACTOBACILLUS RHAMNOSUS GG 1 CAPSULE. PO SCH ×2 (09:11→20:56)
[2021-06-05] MEDS: LOSARTAN POTASSIUM 50 MG TABLET. PO SCH (09:11)
[2021-06-05] MEDS: ACETAMINOPHEN 325 MG TABLET. PO PRN ×2 (09:50→20:57)
[2021-06-05 11:00] VITALS: BP 154/66
--- NOTE | 2021-06-05 11:32 | PDOC ---
[facility] PROGRESS NOTE Date of Service DOS: DATE: 06/05/21 TIME: 11:31 Chief Complaint Chief Complaint A/P: Intractable left hip pain - severe OA noted. With weakness after fall r/o occult fracture via MRI, will d/w ortho and PMR physicians Left leg weakness - no other neuro deficits, weakness is due to pain. Ortho and PMR consulted Unable to walk - due to left leg weakness, fall Anemia - will check iron JOSE - likely vasomotor nephropathy, will hold ARB/HCTZ, monitor renal function Transaminitis - as with JOSE may be rhabdo related Fall at home - with localized bruising. PT for gait training and assessment for safety Elevated troponin - possibly related to rhabdo. Will trend. Consult cardiology COPD - on home O2. Having asthmatic bronchitis, will cont dulera prn. Given her fever will start empiric rocephin and doxycycline and obtain influenza and COVID 19 swabs Chronic hypoxic respiratory failure - possibly acutely worsening, Will monitor pulse ox checks HTN - hold ARB/HCTZ. May start amlodipine if BP increases Bilateral knee abrasions - local wound care COVID 19 - addendum: Rapid covid 19 positive. Decadron, remdesivir, transfer to covid unit FEN - Regular diet PPX - heparin FULL CODE Dispo - inpatient History of Present Illness History of Present Illness Ms Kwan is a 71yo female with PMHx COPD on home O2, HTN, morbid obesity and osteoarthritis who comes to ED accompanied by her son for progressive weakness and left hip pain after a fall. She fell trying to get out of bed to go to the bathroom, slid off the bed and didn't make it to the bathroom, could not stand due to left leg weakness. She called EMS to get up. She has had left leg weakness for the past 2 days prior to arrival and has been mostly in bed. 2 days prior to presentation fell on the way to the bathroom and had both knees splay outward, has some abrasions on bilateral knees. Since then she has had pain and weakness in her left hip, can't bear weight on it. She notes previously she was seen outpatient for severe left hip OA and had excellent improvement for over a year with corticosteroid injection. Pelvis with no acute fracture or dislocation of the pelvis and left hip. Severe degenerative osteoarthritis of the left hip is redemonstrated. Knee radiographs with no acute fracture or dislocation of bilateral knees. left tib-fib radiograph with no acute fracture or dislocation of the left tibia- fibula. Labs with Troponin, 676, BNP 428. Cr 1.5, AST 68, Cr 3 EKG sinus rhythm with significant baseline artifact and prolonged QT 05/20: Troponin decreased. CK elevated creatinine LFTs unchanged. Still significant pain and some weakness left hip. Able to ambulate with physical therapy needs significant assistance, unable to move further than from bed to chair without complete assistance. MRI pelvis ordered. D/w radiology and ortho 05/21: Febrile to 101.6 F overnight. She still notes no worsening shortness of breath cough or upper airway symptoms. She has been taking her home O2 off and 0.102 desaturates to 84% left hip pain is a little better. MRI reviewed there is some motion degradation no occult fracture detected but with severe osteoarthrosis of left hip noted. Addendum: COVID 19 rapid positive 05/23 Patient evaluated examined at bedside. Resting in bed still requiring significant amount of supplemental O2. Needs hip injection per PMR team will wait till oxygen status little more stable before requesting this through interventional radiology. Otherwise continue COVID treatment. Plan of care discussed with bedside RN. 05/24 Patient eval and examind at bedside. Still on high O2 requirements, wean as tolerated. Continue covid treatment. Plan discussed with bedside RN. 05/25 Patient evaluated examined at bedside. Still too much oxygen. Wean as tolerated. Otherwise continue current. Too much oxygen for injection still. 05/26 Patient seen and examined at bedside. Still on pretty high oxygen but we will go ahead and try for hip injection today. Continue current COVID treatment otherwise. 05/27 Eval andexamined at bedside. Says hip somewhat better from injection. Continue covid treatment. 05/29 eval and examined at bedside. able to tolerate some movement today. continue covid treatment. 05/30 patient eval and examined at bedside. on 8L NC. she was in good spirits. continue covid treatment. 05/31 Patient evaluated and examined at bedside. Oxygenation improving. Mobility improving as well. Hopeful for placement this week. 06/01 Patient evaluated and examined at bedside. On 4 L nasal cannula. Mobility continues to improve. Ready for discharge whenever a bed is found. 06/02 Evaluate examined at bedside. No problems or complaints. Ready for discharge once accepted to facility. 06/03/2021 No acute events overnight. Patient seen examined bedside. Patient saturating 94% on 4 L nasal cannula. Not dyspneic during my encounter. Patient's chart, labs, images were reviewed and discussed with RN 06/04/2021 No acute events or night. Patient stable on 2 L nasal cannula and saturating 95%. [facility] an [facility] for SNF placement. Patient's chart, labs, images were reviewed and discussed with RN 06/05/2021 Noted events overnight. Patient seen examined bedside. Saturating 91% on 4 L nasal cannula. Pending SNF placement. Patient's chart, labs, images were reviewed and discussed with RN Vitals/I&O Vitals/I&O: Vital Signs Date Time Temp Pulse Resp B/P (MAP) Pulse Ox O2 Delivery O2 Flow Rate FiO2 06/05/21 09:11 85 124/86 06/05/21 07:00 98.4 18 90 Nasal Cannula 4.0 98.4 I & O 06/04/21 06/04/21 06/05/21 15:00 23:00 07:00 Output Total 800 ml 150 ml Balance -800 ml -150 ml Physical Exam General: Alert, Oriented X3, Cooperative, mild distress Heart: Regular rate Abdomen: Normal bowel sounds, Soft, No tenderness, No hepatosplenomegaly, No masses Extremities: No clubbing, No cyanosis, No edema, Normal pulses, Other (left hip pain on external and internal rotation, pain on straight leg raise on left) Skin: Other (bilateral knee abrasions) Comment Review of Relevant I have reviewed the following items robb (where applicable) has been applied. Justifications for Admission Other Justification IVETTE WILSON MD Jun 05, 2021 11:32
[2021-06-05 15:00] VITALS: BP 144/47
[2021-06-05 19:00] VITALS: BP 129/60
[2021-06-05] MEDS: PSYLLIUM HUSK (SUGAR FREE) 1 PKT PACKET PO SCH (21:00)
[2021-06-05 23:00] VITALS: BP 127/58
[2021-06-06 03:17] VITALS: BP 122/62
[2021-06-06] MEDS: HEPARIN for SUB-Q USE 5,000 UNIT/ML VIAL. SQ SCH ×3 (05:41→21:48)
[2021-06-06 07:00] VITALS: BP 112/65
[2021-06-06] MEDS: LACTOBACILLUS RHAMNOSUS GG 1 CAPSULE. PO SCH ×2 (08:11→21:45)
[2021-06-06] MEDS: IPRATROPIUM/ALBUTEROL 20/100mcg/INH INHALER. INH SCH ×4 (08:11→21:44)
[2021-06-06] MEDS: ZINC SULFATE 220 MG CAPSULE. PO SCH (08:12)
[2021-06-06] MEDS: THIAMINE 100 MG TABLET. PO SCH (08:12)
[2021-06-06] MEDS: ASCORBIC ACID 500 MG TABLET PO SCH (08:12)
[2021-06-06] MEDS: hydroCHLOROthiazide 25 MG TABLET PO SCH (08:17)
[2021-06-06] MEDS: LOSARTAN POTASSIUM 50 MG TABLET. PO SCH (08:18)
[2021-06-06] MEDS: FLUTICASONE FUROATE 100mcg/INH ELLIPTA INHALER. INH SCH (08:20)
--- NOTE | 2021-06-06 08:53 | PDOC ---
PROGRESS NOTES Date of Service DATE: 06/06/21 TIME: 08:51 Subjective Subjective No new complaints. Objective Objective Vital Signs Date Time Temp Pulse Resp B/P (MAP) Pulse Ox O2 Delivery O2 Flow Rate FiO2 06/06/21 08:18 77 126/58 06/06/21 03:17 98.1 18 92 Nasal Cannula 98.1 06/05/21 20:00 4.0 Intake and Output 06/06/21 07:00 Intake Total 440 ml Output Total 200 ml Balance 240 ml Intake Oral 440 ml Output Urine Total 200 ml # Voids 4 # Bowel Movements 3 Physical Exam Physical Exam She is alert,sitting on bedside commode and having some left hip joint pain and stiffness coming back but still getting up with roller walker. Her physical endurance remains low. Plan Plan of Care To SNF when medically stable. Comment Review of Relevant I have reviewed the following items robb (where applicable) has been applied. Labs Microbiology 05/21/21 Blood Culture - Final, Complete NO GROWTH AFTER 5 DAYS 05/19/21 Urine Culture - Final, Complete Medications Current Medications Acetaminophen/ Hydrocodone Bitart (Lortab 5/325) 1 tab 1X ONCE PO ; Start 05/19/21 at 13:00; Stop 05/19/21 at 13:01; Status DC Naproxen (Naprosyn) 500 mg 1X ONCE PO Last administered on 05/19/21at 13:30; Start 05/19/21 at 13:30; Stop 05/19/21 at 13:31; Status DC Ondansetron HCl (Zofran) 4 mg PRN Q4HRS PRN IVP NAUSEA/VOMITING; Start 05/19/21 at 16:30 Acetaminophen (Tylenol) 650 mg PRN Q6HRS PRN PO MILD PAIN / TEMP > 100.3'F Last administered on 06/05/21at 20:57; Start 05/19/21 at 16:30 Psyllium Hydrophilic Mucilloid (Metamucil Fiber Packet) 1 pkt QHS PO Last admi nistered on 06/04/21at 21:01; Start 05/19/21 at 21:00 Sodium Chloride 1,000 ml @ 75 mls/hr [id number] IV Last administered on 05/20/21at 05:52; Start 05/19/21 at 17:15; Stop 05/20/21 at 17:14; Status DC Hydralazine HCl (Apresoline Inj) 10 mg PRN Q4HRS PRN IVP ELEVATED BP, SEE COMMENTS Last administered on 05/30/21at 05:07; Start 05/20/21 at 01:15 Tramadol HCl (Ultram) 50 mg PRN Q6HRS PRN PO PAIN MOD/SEVERE; Start 05/20/21 at 01:15 Guaifenesin (Robitussin Dm) 10 ml PRN Q6HRS PRN PO COUGH Last administered on 05/29/21at 09:12; Start 05/20/21 at 01:15 Albuterol/ Ipratropium (Duoneb) 3 ml RTQID NEB Last administered on 05/21/21at 11:26; Start 05/20/21 at 08:00; Stop 05/21/21 at 22:49; Status DC Albuterol Sulfate (Ventolin Neb Soln) 2.5 mg PRN Q4HRS PRN NEB SHORTNESS OF B REATH; Start 05/20/21 at 01:15 Budesonide (Pulmicort) 0.5 mg RTBID NEB Last administered on 05/21/21at 07:54; Start 05/20/21 at 08:00; Stop 05/21/21 at 22:49; Status DC Heparin Sodium (Porcine) (Heparin Sodium) 5,000 unit Q8HRS SQ Last administered on 06/06/21at 05:41; Start 05/20/21 at 06:00 Bupivacaine HCl (Sensorcaine-Mpf 0.25%) 10 ml 1X ONCE IJ ; Start 05/20/21 at 10:15; Stop 05/20/21 at 10:20; Status DC Lidocaine HCl (Lidocaine 1% 20ml Vial) 20 ml 1X ONCE INJ ; Start 05/20/21 at 10:15; Stop 05/20/21 at 10:20; Status DC Iohexol (Omnipaque 300 Mg/ml) 50 ml 1X ONCE IJ ; Start 05/20/21 at 10:15; Stop 05/20/21 at 10:20; Status DC Info (CONTRAST GIVEN -- Rx MONITORING) 1 each PRN DAILY PRN MC SEE COMMENTS; Start 05/20/21 at 10:30; Stop 05/22/21 at 10:29; Status DC Methylprednisolone Acetate (DEPO-Medrol 40MG VIAL) 40 mg STK-MED ONCE .ROUTE ; Start 05/20/21 at 12:33; Stop 05/20/21 at 12:33; Status DC Bupivacaine HCl (Sensorcaine Mpf 0.5%) 10 ml STK-MED ONCE .ROUTE ; Start 05/20/21 at 12:38; Stop 05/20/21 at 12:38; Status DC Ceftriaxone Sodium (Rocephin) 1 gm Q24H IVP Last administered on 05/31/21at 12:37; Start 05/21/21 at 13:00; Stop 05/31/21 at 13:25; Status DC Doxycycline Hyclate (Vibra-Tab) 100 mg BID PO Last administered on 05/31/21at 08:23; Start 05/21/21 at 13:00; Stop 05/31/21 at 13:26; Status DC Remdesivir 200 mg/ Sodium Chloride 210 ml @ 210 mls/hr 1X ONCE IV Last administered on 05/21/21at 17:10; Start 05/21/21 at 15:00; Stop 05/21/21 at 15:59; Status DC Remdesivir 100 mg/ Sodium Chloride 230 ml @ 460 mls/hr Q24H IV Last administered on 05/25/21at 13:25; Start 05/22/21 at 14:00; Stop 05/25/21 at 14:29; Status DC Dexamethasone Sodium Phosphate (Decadron) 6 mg DAILY IVP Last administered on 05/30/21at 09:03; Start 05/21/21 at 14:00; Stop 05/30/21 at 09:01; Status DC Zinc Sulfate (Orazinc) 220 mg DAILY PO Last administered on 06/06/21at 08:12; Start 05/22/21 at 09:00 Thiamine Mononitrate (Vitamin B-1) 100 mg DAILY PO Last administered on 06/06/21at 08:12; Start 05/22/21 at 09:00 Ascorbic Acid (Vitamin C) 500 mg DAILY PO Last administered on 06/06/21at 08:12; Start 05/22/21 at 09:00 Fluticasone Furoate (ARNUITY 100mcg ELLIPTA) 1 puff DAILY INH Last administered on 06/06/21at 08:20; Start 05/22/21 at 09:00 Albuterol/ Ipratropium (Combivent Respimat 20-100 Mcg) 1 puff RTQID INH Last administered on 06/06/21at 08:11; Start 05/22/21 at 08:00 Sodium Chloride 1,000 ml @ 100 mls/hr Q10H IV Last administered on 05/26/21at 06:40; Start 05/22/21 at 14:45; Stop 05/26/21 at 14:02; Status DC Lactobacillus Rhamnosus (Culturelle) 1 cap BID PO Last administered on 06/06/21at 08:11; Start 05/23/21 at 21:00 Methylprednisolone Acetate (DEPO-Medrol 80MG VIAL) 80 mg STK-MED ONCE .ROUTE ; Start 05/26/21 at 13:32; Stop 05/26/21 at 13:33; Status DC Iohexol (Omnipaque 300 Mg/ml) 50 ml STK-MED ONCE .ROUTE ; Start 05/26/21 at 13:33; Stop 05/26/21 at 13:33; Status DC Bupivacaine HCl (Sensorcaine Mpf 0.5%) 10 ml STK-MED ONCE .ROUTE ; Start 05/26/21 at 13:33; Stop 05/26/21 at 13:33; Status DC Lidocaine HCl (Lidocaine 1% 20ml Vial) 20 ml STK-MED ONCE .ROUTE ; Start 05/26/21 at 13:34; Stop 05/26/21 at 13:34; Status DC Bupivacaine HCl (Sensorcaine Mpf 0.5%) 10 ml 1X ONCE IJ ; Start 05/26/21 at 13:45; Stop 05/26/21 at 13:46; Status DC Sodium Chloride 1,000 ml @ 75 mls/hr [id number] IV Last administered on 05/29/21at 00:38; Start 05/26/21 at 14:15; Stop 06/01/21 at 07:15; Status DC Losartan Potassium (Cozaar) 50 mg DAILY PO Last administered on 06/06/21at 08:18; Start 05/29/21 at 12:00 Non-Formulary Medication (Mometasone/ Formoterol (Dulera 200 Mcg/5 Mcg Inhaler)) 2 puff BID INH ; Start 05/29/21 at 21:00; Status UNV Albuterol Sulfate (Ventolin Neb Soln) 2.5 mg Q6HRS NEB ; Start 05/29/21 at 12:00; Stop 05/29/21 at 11:46; Status DC Budesonide (Pulmicort) 0.5 mg RTBID NEB ; Start 05/29/21 at 12:00; Stop 05/29/21 at 11:46; Status DC Hydrochlorothiazide (Microzide) 12.5 mg DAILY PO Last administered on 05/30/21at 09:09; Start 05/29/21 at 12:00; Stop 05/30/21 at 09:36; Status DC Hydrochlorothiazide (Hydrodiuril) 25 mg DAILY PO Last administered on 06/06/21at 08:17; Start 05/31/21 at 09:00 Hydrochlorothiazide (Microzide) 12.5 mg 1X ONCE PO Last administered on 05/30/21at 10:06; Start 05/30/21 at 10:00; Stop 05/30/21 at 10:01; Status DC Active Scripts Active Hydrochlorothiazide Tablet (Hydrochlorothiazide) 25 Mg Tablet 25 Mg PO DAILY 30 Days Reported Dulera 200 Mcg/5 Mcg Inhaler (Mometasone/Formoterol) 13 Gm Hfa.aer.ad 2 Puff INH BID Irbesartan-Hctz 150-12.5 Mg Tb (Irbesartan/Hydrochlorothiazide) 1 Each Tablet 1 Tab PO DAILY Naproxen 500 Mg Tablet 1 Tab PO BID Vitals/I & O Vital Sign - Last 24 Hours 06/05/21 06/05/21 06/05/21 06/05/21 09:11 11:00 15:00 19:00 Temp 98.8 98.8 98.8 98.8 98.8 98.8 Pulse 85 82 59 82 Resp 20 18 18 B/P (MAP) 124/86 154/66 (95) 144/47 (79) 129/60 (83) Pulse Ox 90 90 93 O2 Delivery Nasal Cannula Nasal Cannula Nasal Cannula O2 Flow Rate 4.0 4.0 06/05/21 06/05/21 06/06/21 06/06/21 20:00 23:00 03:17 08:18 Temp 98.7 98.1 98.7 98.1 Pulse 84 75 77 Resp 18 18 B/P (MAP) 127/58 (81) 122/62 (82) 126/58 Pulse Ox 95 92 O2 Delivery Nasal Cannula Nasal Cannula Nasal Cannula O2 Flow Rate 4.0 Intake and Output 06/05/21 06/05/21 06/06/21 15:00 23:00 07:00 Intake Total 240 ml 200 ml Output Total 200 ml Balance 240 ml 200 ml -200 ml Justifications for Admission Other Justification NUSRAT CHARLES MD Jun 06, 2021 08:53
--- NOTE | 2021-06-06 10:52 | PDOC ---
PULMONARY PROGRESS NOTES DATE: 06/06/21 TIME: 10:49 Subjective Patient sitting up in bed. no paradoxical breathing, appears comfortable 5LNC. Vitals Vital Signs Date Time Temp Pulse Resp B/P (MAP) Pulse Ox O2 Delivery O2 Flow Rate FiO2 06/06/21 08:18 77 126/58 06/06/21 08:05 Nasal Cannula 4.0 06/06/21 07:00 98.1 20 94 98.1 Comments visual exam completed no distress nc at rrr no accessory muscle use abd obese' no rash Medications Active Scripts Medications Dose Route/Sig Max Daily Dose Days Date Category Dulera 200 Mcg/5 Mcg Inhaler (Mometasone/Formoterol) 13 Gm Hfa.aer.ad 2 Puff INH BID 05/20/21 Reported Irbesartan-Hctz 150-12.5 Mg Tb (Irbesartan/Hydrochlorothiazide) 1 Each Tablet 1 Tab PO DAILY 05/20/21 Reported Naproxen 500 Mg Tablet 1 Tab PO BID 05/20/21 Reported Impression . IMPRESSION: 1. Acute on chronic hypoxic respiratory failure secondary to COVID-19 viral pneumonia/ early ARDS/ALI 2. Underlying suspected obesity hypoventilation syndrome and obstructive sleep apnea. 3. Underlying chronic obstructive pulmonary disease. 4. Abnormal chest x-ray as discussed above. 5. Severe osteoarthritis. 6. Severe protein-calorie malnutrition. Plan . RECOMMENDATIONS: 1. titrate fio2 to keep saturation 90%. now 02 4lpm 2. BiPAP prn 3. Avoid hyperoxia. 4. completed dexamethasone 5. doxycycline and Rocephin completed 6. Heparin for DVT prophylaxis. 7. We will follow along with you. ALO WALLACE MD Jun 06, 2021 10:52
[2021-06-06 11:00] VITALS: BP 119/59
[2021-06-06] MEDS: ACETAMINOPHEN 325 MG TABLET. PO PRN ×2 (11:04→21:45)
[2021-06-06 15:00] VITALS: BP 121/57
[2021-06-06 19:08] VITALS: BP 130/57
[2021-06-06] MEDS: PSYLLIUM HUSK (SUGAR FREE) 1 PKT PACKET PO SCH (21:45)
[2021-06-06 22:42] VITALS: BP 152/71
[2021-06-07 02:45] VITALS: BP 158/76
[2021-06-07] MEDS: HEPARIN for SUB-Q USE 5,000 UNIT/ML VIAL. SQ SCH (05:45)
[2021-06-07 07:00] VITALS: BP 145/76
[2021-06-07] MEDS: IPRATROPIUM/ALBUTEROL 20/100mcg/INH INHALER. INH SCH (08:16)
[2021-06-07] MEDS: FLUTICASONE FUROATE 100mcg/INH ELLIPTA INHALER. INH SCH (08:16)
[2021-06-07] MEDS: hydroCHLOROthiazide 25 MG TABLET PO SCH (08:17)
[2021-06-07] MEDS: ZINC SULFATE 220 MG CAPSULE. PO SCH (08:17)
[2021-06-07] MEDS: LACTOBACILLUS RHAMNOSUS GG 1 CAPSULE. PO SCH (08:17)
[2021-06-07] MEDS: THIAMINE 100 MG TABLET. PO SCH (08:18)
[2021-06-07] MEDS: ASCORBIC ACID 500 MG TABLET PO SCH (08:18)
[2021-06-07 08:20] VITALS: BP 145/76
[2021-06-07] MEDS: LOSARTAN POTASSIUM 50 MG TABLET. PO SCH (08:20)
--- NOTE | 2021-06-07 08:20 | PDOC ---
[facility] PROGRESS NOTE Date of Service DOS: DATE: 06/06/21 TIME: 08:18 Chief Complaint Chief Complaint A/P: Intractable left hip pain - severe OA noted. With weakness after fall r/o occult fracture via MRI, will d/w ortho and PMR physicians Left leg weakness - no other neuro deficits, weakness is due to pain. Ortho and PMR consulted Unable to walk - due to left leg weakness, fall Anemia - will check iron JOSE - likely vasomotor nephropathy, will hold ARB/HCTZ, monitor renal function Transaminitis - as with JOSE may be rhabdo related Fall at home - with localized bruising. PT for gait training and assessment for safety Elevated troponin - possibly related to rhabdo. Will trend. Consult cardiology COPD - on home O2. Having asthmatic bronchitis, will cont dulera prn. Given her fever will start empiric rocephin and doxycycline and obtain influenza and COVID 19 swabs Chronic hypoxic respiratory failure - possibly acutely worsening, Will monitor pulse ox checks HTN - hold ARB/HCTZ. May start amlodipine if BP increases Bilateral knee abrasions - local wound care COVID 19 - addendum: Rapid covid 19 positive. Decadron, remdesivir, transfer to covid unit FEN - Regular diet PPX - heparin FULL CODE Dispo - inpatient History of Present Illness History of Present Illness Ms Kwan is a 71yo female with PMHx COPD on home O2, HTN, morbid obesity and osteoarthritis who comes to ED accompanied by her son for progressive weakness and left hip pain after a fall. She fell trying to get out of bed to go to the bathroom, slid off the bed and didn't make it to the bathroom, could not stand due to left leg weakness. She called EMS to get up. She has had left leg weakness for the past 2 days prior to arrival and has been mostly in bed. 2 days prior to presentation fell on the way to the bathroom and had both knees splay outward, has some abrasions on bilateral knees. Since then she has had pain and weakness in her left hip, can't bear weight on it. She notes previously she was seen outpatient for severe left hip OA and had excellent improvement for over a year with corticosteroid injection. Pelvis with no acute fracture or dislocation of the pelvis and left hip. Severe degenerative osteoarthritis of the left hip is redemonstrated. Knee radiographs with no acute fracture or dislocation of bilateral knees. left tib-fib radiograph with no acute fracture or dislocation of the left tibia- fibula. Labs with Troponin, 676, BNP 428. Cr 1.5, AST 68, Cr 3 EKG sinus rhythm with significant baseline artifact and prolonged QT 05/20: Troponin decreased. CK elevated creatinine LFTs unchanged. Still significant pain and some weakness left hip. Able to ambulate with physical therapy needs significant assistance, unable to move further than from bed to chair without complete assistance. MRI pelvis ordered. D/w radiology and ortho 05/21: Febrile to 101.6 F overnight. She still notes no worsening shortness of breath cough or upper airway symptoms. She has been taking her home O2 off and 0.102 desaturates to 84% left hip pain is a little better. MRI reviewed there is some motion degradation no occult fracture detected but with severe osteoarthrosis of left hip noted. Addendum: COVID 19 rapid positive 05/23 Patient evaluated examined at bedside. Resting in bed still requiring significant amount of supplemental O2. Needs hip injection per PMR team will wait till oxygen status little more stable before requesting this through interventional radiology. Otherwise continue COVID treatment. Plan of care discussed with bedside RN. 05/24 Patient eval and examind at bedside. Still on high O2 requirements, wean as tolerated. Continue covid treatment. Plan discussed with bedside RN. 05/25 Patient evaluated examined at bedside. Still too much oxygen. Wean as tolerated. Otherwise continue current. Too much oxygen for injection still. 05/26 Patient seen and examined at bedside. Still on pretty high oxygen but we will go ahead and try for hip injection today. Continue current COVID treatment otherwise. 05/27 Eval andexamined at bedside. Says hip somewhat better from injection. Continue covid treatment. 05/29 eval and examined at bedside. able to tolerate some movement today. continue covid treatment. 05/30 patient eval and examined at bedside. on 8L NC. she was in good spirits. continue covid treatment. 05/31 Patient evaluated and examined at bedside. Oxygenation improving. Mobility improving as well. Hopeful for placement this week. 06/01 Patient evaluated and examined at bedside. On 4 L nasal cannula. Mobility continues to improve. Ready for discharge whenever a bed is found. 06/02 Evaluate examined at bedside. No problems or complaints. Ready for discharge once accepted to facility. 06/03/2021 No acute events overnight. Patient seen examined bedside. Patient saturating 94% on 4 L nasal cannula. Not dyspneic during my encounter. Patient's chart, labs, images were reviewed and discussed with RN 06/04/2021 No acute events or night. Patient stable on 2 L nasal cannula and saturating 95%. [facility] is an option for SNF placement. Patient's chart, labs, images were reviewed and discussed with RN 06/05/2021 Noted events overnight. Patient seen examined bedside. Saturating 91% on 4 L nasal cannula. Pending SNF placement. Patient's chart, labs, images were reviewed and discussed with RN 06/06/2009 No acute events overnight. Patient seen and examined bedside. Saturating well on 4 L nasal cannula. Pending SNF placement. Appreciate strategic planner for coordination. Vitals/I&O Vitals/I&O: Vital Signs Date Time Temp Pulse Resp B/P (MAP) Pulse Ox O2 Delivery O2 Flow Rate FiO2 06/07/21 02:45 97.7 88 18 158/76 (103) 93 Simple Mask 4.0 97.7 I & O 06/06/21 06/06/21 06/07/21 15:00 23:00 07:00 Intake Total 240 ml 120 ml Output Total 350 ml Balance 240 ml 120 ml -350 ml Physical Exam General: Alert, Oriented X3, Cooperative, mild distress Heart: Regular rate Abdomen: Normal bowel sounds, Soft, No tenderness, No hepatosplenomegaly, No masses Extremities: No clubbing, No cyanosis, No edema, Normal pulses, Other (left hip pain on external and internal rotation, pain on straight leg raise on left) Skin: Other (bilateral knee abrasions) Comment Review of Relevant I have reviewed the following items robb (where applicable) has been applied. Justifications for Admission Other Justification IVETTE WILSON MD Jun 07, 2021 08:20
--- NOTE | 2021-06-07 08:56 | RAD ---
EXAM: Fluoroscopic guided therapeutic left hip injection. HISTORY: Pain. TECHNIQUE: The risks of the procedure were discussed with the patient and written and verbal consent was obtained. A time out was performed. Fluoroscopic imaging of the left was performed and a site ove rlying the joint space was selected for needle entry. The skin overlying this region was sterilely pr epped, draped and infiltrated with 1% lidocaine. A spinal needle was then advanced into the joint spa ce with fluoroscopic guidance. Appropriate needle tip positioning was confirmed with injection of 3 c c Isovue 300 contrast. Subsequently, the requested solution containing 80 mg Depo-Medrol and 4 cc of bupivacaine was injected into the joint space. Fluoroscopic images demonstrate intraarticular accumul ation of contrast and the therapeutic solution. The needle was removed and a sterile bandage was plac ed at the needle entry site. The patient tolerated the procedure without difficulty. The total fluoro scopy time was 0.4 minutes. 2 fluoroscopic images were obtained. IMPRESSION: Successful fluoroscopic guided therapeutic left hip injection. Electronically signed by: Susan Barnes MD (06/07/2021 8:54 AM) [id number]
--- NOTE | 2021-06-07 09:31 | PDOC ---
PULMONARY PROGRESS NOTES DATE: 06/07/21 TIME: 09:31 Subjective Patient sitting up in bed. no paradoxical breathing, appears comfortable 5LNC. Vitals Vital Signs Date Time Temp Pulse Resp B/P (MAP) Pulse Ox O2 Delivery O2 Flow Rate FiO2 06/07/21 08:20 74 145/76 06/07/21 08:00 Nasal Cannula 4.0 06/07/21 07:00 98.2 18 93 98.2 Comments visual exam completed no distress nc at rrr no accessory muscle use abd obese' no rash Medications Active Scripts Medications Dose Route/Sig Max Daily Dose Days Date Category Dulera 200 Mcg/5 Mcg Inhaler (Mometasone/Formoterol) 13 Gm Hfa.aer.ad 2 Puff INH BID 05/20/21 Reported Irbesartan-Hctz 150-12.5 Mg Tb (Irbesartan/Hydrochlorothiazide) 1 Each Tablet 1 Tab PO DAILY 05/20/21 Reported Naproxen 500 Mg Tablet 1 Tab PO BID 05/20/21 Reported Impression . IMPRESSION: 1. Acute on chronic hypoxic respiratory failure secondary to COVID-19 viral pneumonia/ early ARDS/ALI 2. Underlying suspected obesity hypoventilation syndrome and obstructive sleep apnea. 3. Underlying chronic obstructive pulmonary disease. 4. Abnormal chest x-ray as discussed above. 5. Severe osteoarthritis. 6. Severe protein-calorie malnutrition. Plan . RECOMMENDATIONS: 1. titrate fio2 to keep saturation 90%. now 02 4lpm 2. BiPAP prn 3. Avoid hyperoxia. 4. completed dexamethasone 5. doxycycline and Rocephin completed 6. Heparin for DVT prophylaxis. 7. We will follow along with you. JERSON SANCHEZ MD Jun 07, 2021 09:31
--- NOTE | 2021-06-07 10:12 | PDOC ---
PROGRESS NOTES Date of Service DATE: 06/07/21 TIME: 10:10 Subjective Subjective No new complaints. He feels like she can go home. Objective Objective Vital Signs Date Time Temp Pulse Resp B/P (MAP) Pulse Ox O2 Delivery O2 Flow Rate FiO2 06/07/21 08:20 74 145/76 06/07/21 08:00 Nasal Cannula 4.0 06/07/21 07:00 98.2 18 93 98.2 Intake and Output 06/07/21 07:00 Intake Total 360 ml Output Total 350 ml Balance 10 ml Intake Oral 360 ml Output Urine Total 350 ml # Voids 3 Physical Exam Physical Exam She is alert,sitting in bedside chair and seems comfortable and nursing states that she continues to require assistance with transfers and not safe to go home. Plan Plan of Care To SNF when medically stable. Comment Review of Relevant I have reviewed the following items robb (where applicable) has been applied. Labs Microbiology 05/21/21 Blood Culture - Final, Complete NO GROWTH AFTER 5 DAYS 05/19/21 Urine Culture - Final, Complete Medications Current Medications Acetaminophen/ Hydrocodone Bitart (Lortab 5/325) 1 tab 1X ONCE PO ; Start 05/19/21 at 13:00; Stop 05/19/21 at 13:01; Status DC Naproxen (Naprosyn) 500 mg 1X ONCE PO Last administered on 05/19/21at 13:30; Start 05/19/21 at 13:30; Stop 05/19/21 at 13:31; Status DC Ondansetron HCl (Zofran) 4 mg PRN Q4HRS PRN IVP NAUSEA/VOMITING; Start 05/19/21 at 16:30 Acetaminophen (Tylenol) 650 mg PRN Q6HRS PRN PO MILD PAIN / TEMP > 100.3'F Last administered on 06/06/21at 21:45; Start 05/19/21 at 16:30 Psyllium Hydrophilic Mucilloid (Metamucil Fiber Packet) 1 pkt QHS PO Last administered on 06/06/21at 21:45; Start 05/19/21 at 21:00 Sodium Chloride 1,000 ml @ 75 mls/hr [id number] IV Last administered on 05/20/21at 05:52; Start 05/19/21 at 17:15; Stop 05/20/21 at 17:14; Status DC Hydralazine HCl (Apresoline Inj) 10 mg PRN Q4HRS PRN IVP ELEVATED BP, SEE COMMENTS Last administered on 05/30/21at 05:07; Start 05/20/21 at 01:15 Tramadol HCl (Ultram) 50 mg PRN Q6HRS PRN PO PAIN MOD/SEVERE; Start 05/20/21 at 01:15 Guaifenesin (Robitussin Dm) 10 ml PRN Q6HRS PRN PO COUGH Last administered on 05/29/21at 09:12; Start 05/20/21 at 01:15 Albuterol/ Ipratropium (Duoneb) 3 ml RTQID NEB Last administered on 05/21/21at 11:26; Start 05/20/21 at 08:00; Stop 05/21/21 at 22:49; Status DC Albuterol Sulfate (Ventolin Neb Soln) 2.5 mg PRN Q4HRS PRN NEB SHORTNESS OF BREATH; Start 05/20/21 at 01:15 Budesonide (Pulmicort) 0.5 mg RTBID NEB Last administered on 05/21/21at 07:54; Start 05/20/21 at 08:00; Stop 05/21/21 at 22:49; Status DC Heparin Sodium (Porcine) (Heparin Sodium) 5,000 unit Q8HRS SQ Last administered on 06/07/21at 05:45; Start 05/20/21 at 06:00 Bupivacaine HCl (Sensorcaine-Mpf 0.25%) 10 ml 1X ONCE IJ ; Start 05/20/21 at 10:15; Stop 05/20/21 at 10:20; Status DC Lidocaine HCl (Lidocaine 1% 20ml Vial) 20 ml 1X ONCE INJ ; Start 05/20/21 at 10:15; Stop 05/20/21 at 10:20; Status DC Iohexol (Omnipaque 300 Mg/ml) 50 ml 1X ONCE IJ ; Start 05/20/21 at 10:15; Stop 05/20/21 at 10:20; Status DC Info (CONTRAST GIVEN -- Rx MONITORING) 1 each PRN DAILY PRN MC SEE COMMENTS; Start 05/20/21 at 10:30; Stop 05/22/21 at 10:29; Status DC Methylprednisolone Acetate (DEPO-Medrol 40MG VIAL) 40 mg STK-MED ONCE .ROUTE ; Start 05/20/21 at 12:33; Stop 05/20/21 at 12:33; Status DC Bupivacaine HCl (Sensorcaine Mpf 0.5%) 10 ml STK-MED ONCE .ROUTE ; Start 05/20/21 at 12:38; Stop 05/20/21 at 12:38; Status DC Ceftriaxone Sodium (Rocephin) 1 gm Q24H IVP Last administered on 05/31/21at 12:37; Start 05/21/21 at 13:00; Stop 05/31/21 at 13:25; Status DC Doxycycline Hyclate (Vibra-Tab) 100 mg BID PO Last administered on 05/31/21at 08:23; Start 05/21/21 at 13:00; Stop 05/31/21 at 13:26; Status DC Remdesivir 200 mg/ Sodium Chloride 210 ml @ 210 mls/hr 1X ONCE IV Last administered on 05/21/21at 17:10; Start 05/21/21 at 15:00; Stop 05/21/21 at 15:59; Status DC Remdesivir 100 mg/ Sodium Chloride 230 ml @ 460 mls/hr Q24H IV Last administered on 05/25/21at 13:25; Start 05/22/21 at 14:00; Stop 05/25/21 at 14:29; Status DC Dexamethasone Sodium Phosphate (Decadron) 6 mg DAILY IVP Last administered on 05/30/21at 09:03; Start 05/21/21 at 14:00; Stop 05/30/21 at 09:01; Status DC Zinc Sulfate (Orazinc) 220 mg DAILY PO Last administered on 06/07/21at 08:17; Start 05/22/21 at 09:00 Thiamine Mononitrate (Vitamin B-1) 100 mg DAILY PO Last administered on 06/07/21at 08:18; Start 05/22/21 at 09:00 Ascorbic Acid (Vitamin C) 500 mg DAILY PO Last administered on 06/07/21at 08:18; Start 05/22/21 at 09:00 Fluticasone Furoate (ARNUITY 100mcg ELLIPTA) 1 puff DAILY INH Last administered on 06/06/21at 08:20; Start 05/22/21 at 09:00 Albuterol/ Ipratropium (Combivent Respimat 20-100 Mcg) 1 puff RTQID INH Last administered on 06/07/21at 08:16; Start 05/22/21 at 08:00 Sodium Chloride 1,000 ml @ 100 mls/hr Q10H IV Last administered on 05/26/21at 06:40; Start 05/22/21 at 14:45; Stop 05/26/21 at 14:02; Status DC Lactobacillus Rhamnosus (Culturelle) 1 cap BID PO Last administered on 06/07/21at 08:17; Start 05/23/21 at 21:00 Methylprednisolone Acetate (DEPO-Medrol 80MG VIAL) 80 mg STK-MED ONCE .ROUTE ; Start 05/26/21 at 13:32; Stop 05/26/21 at 13:33; Status DC Iohexol (Omnipaque 300 Mg/ml) 50 ml STK-MED ONCE .ROUTE ; Start 05/26/21 at 13:33; Stop 05/26/21 at 13:33; Status DC Bupivacaine HCl (Sensorcaine Mpf 0.5%) 10 ml STK-MED ONCE .ROUTE ; Start 05/26/21 at 13:33; Stop 05/26/21 at 13:33; Status DC Lidocaine HCl (Lidocaine 1% 20ml Vial) 20 ml STK-MED ONCE .ROUTE ; Start 05/26/21 at 13:34; Stop 05/26/21 at 13:34; Status DC Bupivacaine HCl (Sensorcaine Mpf 0.5%) 10 ml 1X ONCE IJ ; Start 05/26/21 at 13:45; Stop 05/26/21 at 13:46; Status DC Sodium Chloride 1,000 ml @ 75 mls/hr [id number] IV Last administered on 05/29/21at 00:38; Start 05/26/21 at 14:15; Stop 06/01/21 at 07:15; Status DC Losartan Potassium (Cozaar) 50 mg DAILY PO Last administered on 06/07/21at 08:20; Start 05/29/21 at 12:00 Non-Formulary Medication (Mometasone/ Formoterol (Dulera 200 Mcg/5 Mcg Inhaler)) 2 puff BID INH ; Start 05/29/21 at 21:00; Status UNV Albuterol Sulfate (Ventolin Neb Soln) 2.5 mg Q6HRS NEB ; Start 05/29/21 at 12:00; Stop 05/29/21 at 11:46; Status DC Budesonide (Pulmicort) 0.5 mg RTBID NEB ; Start 05/29/21 at 12:00; Stop 05/29/21 at 11:46; Status DC Hydrochlorothiazide (Microzide) 12.5 mg DAILY PO Last administered on 05/30/21at 09:09; Start 05/29/21 at 12:00; Stop 05/30/21 at 09:36; Status DC Hydrochlorothiazide (Hydrodiuril) 25 mg DAILY PO Last administered on 06/07/21at 08:17; Start 05/31/21 at 09:00 Hydrochlorothiazide (Microzide) 12.5 mg 1X ONCE PO Last administered on 05/30/21at 10:06; Start 05/30/21 at 10:00; Stop 05/30/21 at 10:01; Status DC Active Scripts Active Hydrochlorothiazide Tablet (Hydrochlorothiazide) 25 Mg Tablet 25 Mg PO DAILY 30 Days Reported Dulera 200 Mcg/5 Mcg Inhaler (Mometasone/Formoterol) 13 Gm Hfa.aer.ad 2 Puff INH BID Irbesartan-Hctz 150-12.5 Mg Tb (Irbesartan/Hydrochlorothiazide) 1 Each Tablet 1 Tab PO DAILY Naproxen 500 Mg Tablet 1 Tab PO BID Vitals/I & O Vital Sign - Last 24 Hours 06/06/21 06/06/21 06/06/21 06/06/21 11:00 15:00 19:08 20:00 Temp 99.1 98.6 97.8 99.1 98.6 97.8 Pulse 82 97 96 Resp 20 20 19 B/P (MAP) 119/59 (79) 121/57 (78) 130/57 (81) Pulse Ox 91 90 92 O2 Delivery Nasal Cannula Nasal Cannula Simple Mask Nasal Cannula O2 Flow Rate 4.0 4.0 06/06/21 06/07/21 06/07/21 06/07/21 22:42 02:45 07:00 08:00 Temp 97.8 97.7 98.2 97.8 97.7 98.2 Pulse 85 88 74 Resp 18 18 18 B/P (MAP) 152/71 (98) 158/76 (103) 145/76 (99) Pulse Ox 92 93 93 O2 Delivery Simple Mask Simple Mask Simple Mask Nasal Cannula O2 Flow Rate 4.0 4.0 4.0 4.0 06/07/21 08:20 Pulse 74 B/P (MAP) 145/76 Intake and Output 06/06/21 06/06/21 06/07/21 15:00 23:00 07:00 Intake Total 240 ml 120 ml Output Total 350 ml Balance 240 ml 120 ml -350 ml Justifications for Admission Other Justification NUSRAT CHARLES MD Jun 07, 2021 10:12
--- NOTE | 2021-06-07 11:23 | NUR ---
Report called to [facility] and spoke with Salvatore WYNNE.
--- NOTE | 2021-06-07 11:35 | NUR ---
Pt discharged by w/sriram cannon
--- NOTE | 2021-06-09 19:54 | PDOC3 ---
[facility]-Discharge Summary Date of Admission: Date of Admission: Jun 07, 2021 Date of Discharge: Date of Discharge: May 19, 2021 Discharge Diagnosis: Discharge Diagnosis: Intractable left hip pain - severe OA noted. With weakness after fall r/o occult fracture via MRI, will d/w ortho and PMR physicians Left leg weakness - no other neuro deficits, weakness is due to pain. Ortho and PMR consulted Unable to walk - due to left leg weakness, fall Anemia - will check iron JOSE - likely vasomotor nephropathy, will hold ARB/HCTZ, monitor renal function Transaminitis - as with JOSE may be rhabdo related Fall at home - with localized bruising. PT for gait training and assessment for safety Elevated troponin - possibly related to rhabdo. Will trend. Consult cardiology COPD - on home O2. Having asthmatic bronchitis, will cont dulera prn. Given her fever will start empiric rocephin and doxycycline and obtain influenza and COVID 19 swabs Chronic hypoxic respiratory failure - possibly acutely worsening, Will monitor pulse ox checks HTN - hold ARB/HCTZ. May start amlodipine if BP increases Bilateral knee abrasions - local wound care COVID 19 - addendum: Rapid covid 19 positive. Decadron, remdesivir, transfer to covid unit Hospital Course: Hospital Course: 71yo female with PMHx COPD on home O2, HTN, morbid obesity and osteoarthritis who comes to ED accompanied by her son for progressive weakness and left hip pain after a fall. She fell trying to get out of bed to go to the bathroom, slid off the bed and didn't make it to the bathroom, could not stand due to left leg weakness. She called EMS to get up. She has had left leg weakness for the past 2 days prior to arrival and has been mostly in bed. 2 days prior to presentation fell on the way to the bathroom and had both knees splay outward, has some abrasions on bilateral knees. Since then she has had pain and weakness in her left hip, can't bear weight on it. She notes previously she was seen outpatient for severe left hip OA and had excellent improvement for over a year with corticosteroid injection. Pelvis with no acute fracture or dislocation of the pelvis and left hip. Severe degenerative osteoarthritis of the left hip is redemonstrated. Knee radiographs with no acute fracture or dislocation of bilateral knees. left tib-fib radiograph with no acute fracture or dislocation of the left tibia- fibula. Labs with Troponin, 676, BNP 428. Cr 1.5, AST 68, Cr 3 EKG sinus rhythm with significant baseline artifact and prolonged QT 05/20: Troponin decreased. CK elevated creatinine LFTs unchanged. Still significant pain and some weakness left hip. Able to ambulate with physical therapy needs significant assistance, unable to move further than from bed to chair without complete assistance. MRI pelvis ordered. D/w radiology and ortho 05/21: Febrile to 101.6 F overnight. She still notes no worsening shortness of breath cough or upper airway symptoms. She has been taking her home O2 off and 0.102 desaturates to 84% left hip pain is a little better. MRI reviewed there is some motion degradation no occult fracture detected but with severe osteoarthrosis of left hip noted. Addendum: COVID 19 rapid positive 05/23 Patient evaluated examined at bedside. Resting in bed still requiring significant amount of supplemental O2. Needs hip injection per PMR team will wait till oxygen status little more stable before requesting this through interventional radiology. Otherwise continue COVID treatment. Plan of care discussed with bedside RN. 05/24 Patient eval and examind at bedside. Still on high O2 requirements, wean as tolerated. Continue covid treatment. Plan discussed with bedside RN. 05/25 Patient evaluated examined at bedside. Still too much oxygen. Wean as tolerated. Otherwise continue current. Too much oxygen for injection still. 05/26 Patient seen and examined at bedside. Still on pretty high oxygen but we will go ahead and try for hip injection today. Continue current COVID treatment otherwise. 05/27 Eval andexamined at bedside. Says hip somewhat better from injection. Continue covid treatment. 05/29 eval and examined at bedside. able to tolerate some movement today. continue covid treatment. 05/30 patient eval and examined at bedside. on 8L NC. she was in good spirits. continue covid treatment. 05/31 Patient evaluated and examined at bedside. Oxygenation improving. Mobility improving as well. Hopeful for placement this week. 06/01 Patient evaluated and examined at bedside. On 4 L nasal cannula. Mobility continues to improve. Ready for discharge whenever a bed is found. 06/02 Evaluate examined at bedside. No problems or complaints. Ready for discharge once accepted to facility. 06/03/2021 No acute events overnight. Patient seen examined bedside. Patient saturating 94% on 4 L nasal cannula. Not dyspneic during my encounter. Patient's chart, labs, images were reviewed and discussed with RN 06/04/2021 No acute events or night. Patient stable on 2 L nasal cannula and saturating 95%. [facility] is an [facility] for SNF placement. Patient's chart, labs, images were reviewed and discussed with RN 06/05/2021 Noted events overnight. Patient seen examined bedside. Saturating 91% on 4 L nasal cannula. Pending SNF placement. Patient's chart, labs, images were reviewed and discussed with RN 06/06/2009 No acute events overnight. Patient seen and examined bedside. Saturating well on 4 L nasal cannula. Pending SNF placement. Appreciate neighborhood planner for coordination. By day of discharge, pt was clinically stable and ready for discharge. Rest of hospital course was uneventful Disposition: Disposition/Orders: D/C to Another Facility Activity: Activity: Resume previous activity Diet: Diet: Cardiac Medications: Home Meds Active Scripts Hydrochlorothiazide (HYDROCHLOROTHIAZIDE TABLET ) 25 Mg Tablet, 25 MG PO DAILY for htn for 30 Days, #30 TAB Prov:LAURA AMAYA MD 06/01/21 Reported Medications Mometasone/Formoterol (DULERA 200 MCG/5 MCG INHALER) 13 Gm Hfa.aer.ad, 2 PUFF INH BID for asthma 05/20/21 Irbesartan/Hydrochlorothiazide (IRBESARTAN-HCTZ 150-12.5 MG TB) 1 Each Tablet, 1 TAB PO DAILY for HTN 05/20/21 Naproxen (NAPROXEN) 500 Mg Tablet, 1 TAB PO BID for pain 05/20/21 Scheduled Hydrochlorothiazide (Hydrochlorothiazide Tablet ), 25 MG PO DAILY Irbesartan/Hydrochlorothiazide (Irbesartan-Hctz 150-12.5 Mg Tb), 1 TAB PO DAILY, (Reported) Mometasone/Formoterol (Dulera 200 Mcg/5 Mcg Inhaler), 2 PUFF INH BID, (Reported) Naproxen (Naproxen), 1 TAB PO BID, (Reported) Total Time: Total Time: Total time spent was 33 minutes in preparing scripts and discharge planning with SW and RN. Patient seen and examined on day of Discharge. Justicifation of Admission Dx: Justifications for Admission: Justification of Admission Dx: Yes Respiratory Failure: Severe Resp Distress IVETTE WILSON MD Jun 09, 2021 19:54
== END 2021-06-07 11:35 | DRG 177 ==
LOC: ER 10:55 → 5 SOUTH 13:58 → 4 NORTH 19:28 → 5 NORTH 05-21 14:52
PROVIDERS: ADMIT Internal Medicine; ATTEND Internal Medicine
PROC: 3E0U33Z Introduction of Anti-inflammatory into Joints, Percutaneous Approach (ICD-10-PCS; 2021-05-19)
PROC: 3E0U3BZ Introduction of Anesthetic Agent into Joints, Percutaneous Approach (ICD-10-PCS; 2021-05-19)
PROC: XW033E5 Introduction of Remdesivir Anti-infective into Peripheral Vein, Percutaneous Approach, New Technology Group 5 (ICD-10-PCS; 2021-05-21)
PROC: 5A0935A Assistance with Respiratory Ventilation, Less than 24 Consecutive Hours, High Flow/Velocity Cannula (ICD-10-PCS; 2021-05-25)
PROC: 5A0935A Assistance with Respiratory Ventilation, Less than 24 Consecutive Hours, High Flow/Velocity Cannula (ICD-10-PCS; 2021-05-31)
PROC: 0S9B3ZZ Drainage of Left Hip Joint, Percutaneous Approach (ICD-10-PCS; principal; 2021-06-07)
DX: U07.1 COVID-19 (principal); N17.0 Acute kidney failure with tubular necrosis; E43 Unspecified severe protein-calorie malnutrition; J12.82 Pneumonia due to coronavirus disease 2019; J96.21 Acute and chronic respiratory failure with hypoxia; Z68.42 Body mass index [BMI] 45.0-49.9, adult; M16.12 Unilateral primary osteoarthritis, left hip; D64.9 Anemia, unspecified; J43.9 Emphysema, unspecified; E66.01 Morbid (severe) obesity due to excess calories; I10 Essential (primary) hypertension; M17.0 Bilateral primary osteoarthritis of knee; R32 Unspecified urinary incontinence; S80.211A Abrasion, right knee, initial encounter; S80.212A Abrasion, left knee, initial encounter; W06.XXXA Fall from bed, initial encounter; Y92.009 Unspecified place in unspecified non-institutional (private) residence as the place of occurrence of the external cause; Z59.01 Sheltered homelessness; Z82.49 Family history of ischemic heart disease and other diseases of the circulatory system; Z87.891 Personal history of nicotine dependence; Z99.81 Dependence on supplemental oxygen; Z60.2 Problems related to living alone
CPT/HCPCS: 20610; 36415; 36600; 71045; 73502; 73590; 73721; 77002; 80048; 80053; 81001; 82550; 82805; 82962; 83540; 83550; 83735; 83880; 84145; 84484; 85007; 85025; 87040; 87086; 87426; 87804; 93005; 94640; 94760; 96360; J0360; J0696; J1100; J1644; J3490; J7030; J7050; U0003; 73562-50; 97110-GP; 97530-GO; 97530-GP; 97535-GO; 99285-25; G0378; J7626